=== PATIENT | female | born 1990 | race Caucasian/White ===

== ENCOUNTER 2020-04-06 14:27 | Outpatient (CLI) | payer OTHER, SELFPAY ==
--- NOTE | 2020-04-06 19:22 | PC.NURSE ---
1427 pt arrived in unit for PIH evaluation. after this RN escorted pt to room, at 1500, pt came to desk and states she has to go get her niece and has to leave, but will come back.pt left phone number.
--- NOTE | 2020-04-06 19:25 | PCDIET ---
1650 this RN attempted to call pt on the number she left. no answer and unable to leave message. [address] Martini and made aware of pt non return. 1730 pt called in unit and states she is still waiting for her ride but will coming back. 192 this RN attempted to call pt again, no answer and unable to leave message.
== END 2020-04-06 19:36 | disposition other institution (70) ==
LOC: ANHOBOP 14:36 → ANHOBPP 14:37
PROVIDERS: Visit Provider Obstetrics & Gynecology
DX: O13.9 Gestational [pregnancy-induced] hypertension without significant proteinuria, unspecified trimester (principal); Z3A.00 Weeks of gestation of pregnancy not specified
CPT/HCPCS: 99199

== ENCOUNTER 2021-07-19 15:33 | Emergency (ER) | payer OTHER, SELFPAY ==
--- NOTE | ~2021-07-19 | CT_ITS ---
EXAMINATION: CTA chest PE abdomen pel DATE: 07/19/2021 22:38 CDT INDICATION: Chest and abdomen pain. Low-grade fever. TECHNIQUE: Computed tomographic angiography (CTA) of the chest, abdomen, and pelvis was performed wit hout and with 100 mL Omnipaque-350 intravenous contrast. The dose-length product was 2452.96 mGy-cm. Maximum intensity projection 3D-reconstructions of the aorta and other arteries were constructed by joanna murcia technologist on a separate workstation. Automated exposure control and iterative reconstruction technique were employed. COMPARISON: None. FINDINGS: CHEST CTA: Study is technically limited for evaluation of pulmonary embolism. No large central pulmonary emboli. Heart size normal. No thoracic lymphadenopathy. No pleural or pericardial effusion. No pneumothorax. No endobronchial lesions. No focal airspace consolidation. No pulmonary nodules or masses. ABDOMEN AND PELVIS CTA: Fatty infiltration of the liver. There are gallstones. Gallbladder is distended. The spleen, pancreas , adrenal glands and kidneys are unremarkable. No evidence for aortic aneurysm or dissection. Nonobst ructive bowel gas pattern. No abnormal pelvic masses or fluid collections. No free air or free fluid. Mild thoracic spondylosis. No acute osseous abnormality. IMPRESSION: 1. Study technically limited. No large central pulmonary embolus. 2: Distended gallbladder with stones. Reviewed, dictated and finalized at location A.
--- NOTE | ~2021-07-19 | XR_ITS ---
EXAMINATION: XR chest 2V 07/19/2021 16:16 INDICATION: Chest pain. Hypertension. Diabetes. PROCEDURE: 2 view chest COMPARISON: No prior studies for comparison. FINDINGS: The lungs are clear. The cardiomediastinal silhouette is within normal limits. There are no pleural effusions. There is no pneumothorax suspected. IMPRESSION: 1: NO ACUTE CARDIOPULMONARY DISEASE. Reviewed, dictated and finalized at location A.
[2021-07-19 15:35] VITALS: BP 122/85; PULSE 90; RESP 18; TEMP 36.8; O2SAT 100
--- NOTE | 2021-07-19 15:35 | ECG_ITS ---
Measurements Intervals [place] Rate: 107 P: -3 VA: 139 QRS: 45 QRSD: 82 T: 257 QT: 296 QTc: 395 Interpretive Statements SINUS TACHYCARDIA ST-T WAVE ABNORMALITY IN ANTEROLAT/INF LEADS- CONSIDER ISCHEMIA BASELINE ARTIFACT- I, II, III, AVR, AVL, AVF, V1-V6 ABNORMAL ECG Electronically Signed On 07-19-2021 15:49:19 CDT by Mohan Grewal D.O.
[2021-07-19 16:45] LABS: Basophils Absolute Auto 0.1 K/mm3 (0.0-0.1); Basophils Percent Auto 0.8 % (0.2-1.2); Eosinophils Percent Auto 0.2 % (0-4.4); Hematocrit 52.1 % (37.0-47.0); Hemoglobin 17.4 g/dL (12.0-15.0); Immature Granulocyte Absolute 0.05 K/mm3 (0.00-0.031); Immature Granulocyte Percent A 0.4 % (0-0.5); Lymphocytes Absolute Auto 3.57 K/mm3 (0.9-3.2); Lymphocytes Percent Auto 26.7 % (18.3-44.2); Mean Corpuscular HGB Conc 33.4 g/dl (32-36); Mean Corpuscular Hemoglobin 27.8 pg (26-34); Mean Corpuscular Volume 83.1 fl (80-100); Mean Platelet Volume 11.1 fl (7.4-10.4); Monocytes Absolute Auto 0.8 K/mm3 (0.1-0.6); Monocytes Percent Auto 6.1 % (2.6-8.5); Neutrophils Absolute Auto 8.8 K/mm3 (1.3-6.7); Neutrophils Percent Auto 65.8 % (45.5-73.1); Platelet Count Result 287 k/mm3 (150-375); Red Blood Count 6.27 M/mm3 (4.2-5.4); White Blood Count 13.4 K/mm3 (4.5-10.0)
[2021-07-19 16:58] LABS: Anion Gap 14 mmol/L (8-16); Blood Urea Nitrogen 18 mg/dL (7-17); Calcium 10.1 mg/dL (8.4-10.2); Carbon Dioxide 25 mmol/L (22-30); Chloride 94 mmol/L (98-107); Estimated CRCL calculation 177 ml/min; Estimated Glomerular Filt Rate > 60; Glucose 260 mg/dL (65-110); Potassium 3.1 mmol/L (3.4-5.0); Sodium 133 mmol/L (137-145)
[2021-07-19 17:06] LABS: Prothrombin Time 12.8 Seconds (11.1-14.7)
[2021-07-19 17:07] LABS: Partial Thromboplastin Time 23.9 SECONDS (22.3-36.8)
[2021-07-19 17:09] LABS: Troponin I < 0.012 ng/mL (0.000-0.034)
--- NOTE | 2021-07-19 17:53 | PC.NURSE ---
Pt walked out to her car
--- NOTE | 2021-07-19 18:23 | PC.NURSE ---
Pt back from going out to car
[2021-07-19 18:35] VITALS: BP 129/89; PULSE 118; RESP 18; O2SAT 98
[2021-07-19 19:57] LABS: Alanine Aminotransferase 48 U/L (4-35); Alkaline Phosphatase 110 U/L (38-126); Aspartate Amino Transferase 66 U/L (14-36); Bilirubin,Total 0.8 mg/dL (0.2-1.3); Lipase 60 U/L (23-300)
--- NOTE | 2021-07-19 20:06 | ED.GENADULT ---
HPI - General Adult General Chief complaint: Chest Pain Stated complaint: chest pain, vomiting Time Seen by Provider: 07/19/21 19:02 History of Present Illness HPI narrative: Patient is a 31-year-old female who presents ER with reports of epigastric pain. Reports she is concerned about her gallbladder pancreas. Reports for the last 4 to 5 days she has had pain that radiates into her right back. Associate with nausea and vomiting as well as diarrhea. The diarrhea seems oily. She reports this happens to her about twice a month. She denies fevers or chills or sweats. She is unsure if this occurs when she is stressed. She does report the recent loss of a family member. She denies central chest pain or chest pressure. No racing of heart. She reports 2 days ago she got up off her couch and was walking around when she got lightheaded and passed out. This was after having episodes of diarrhea and vomiting. Related Data Home Medications Medication Instructions Recorded Confirmed amlodipine 07/19/21 atorvastatin 07/19/21 liraglutide [Victoza 3-Baldo] mg SUBCUT 07/19/21 lisinopril-hydrochlorothiazide tablet 07/19/21 metformin mg 07/19/21 07/19/21 sertraline mg 07/19/21 Allergies Allergy/AdvReac Type Severity Reaction Status Date / Time No Known Allergies Allergy Mild Verified 07/19/21 22:22 Review of Systems Review of Systems: All systems reviewed & are unremarkable except as noted in HPI and below Constitutional: Constitutional: Denies chills, Reports fatigue and Denies fever(s) ENT: Denies nasal congestion and Denies sore throat Cardiovascular: Cardiovascular: Denies chest pain, Denies rapid heart rate and Denies radiating jaw, neck or arm pain Respiratory: Respiratory: Denies cough, Denies dyspnea and Denies wheezing Gastrointestinal: Gastrointestinal: Reports abdominal pain, Denies bloating, Denies constipation, Reports diarrhea, Reports nausea and Reports vomiting Genitourinary: Genitourinary: Denies nocturia, Denies dysuria, Denies flank pain and Denies urinary incontinence Musculoskeletal: Musculoskeletal: Denies myalgias and Denies muscle cramps Neurologic: Reports syncope, Denies focal weakness and Denies numbness PMF Past Medical History Medical History (Updated 07/20/21 @ 00:13 by Endy Rushing MD) Diabetes Surgical History Surgical History (Updated 07/19/21 @ 22:03 by Endy Rushing MD) History of section Social History Social History (Updated 07/19/21 @ 22:03 by Endy Rushing MD) Smoking status: Never smoker Exam Narrative: GENERAL: Well-appearing, obese, and in no acute distress. HEAD: Normocephalic, atraumatic. ENT: Mucous membranes moist. CHEST: Clear to auscultation. No respiratory distress. HEART: Tachycardic and regular. Normal peripheral pulses. ABDOMEN: Soft, nontender, nondistended, normal active bowel sounds. EXTREMITIES: Normal range of motion. No edema. SKIN: Warm, dry, no rash. NEURO: Alert and oriented x3. PSYCH: Normal mood and affect. Course Course Emergency Course: Patient resting comfortably. Informed results. White count slightly elevated with distended gallbladder gallstones. Discussed with general surgery. Discharge home with antibiotics and pain control. Educated on low-fat diet. Will need cholecystectomy in the future. Patient's troponins negative x2. No large PE, symptoms felt to be related to gallstones so will not reimage for smaller PE. Vital Signs Vital signs: Vital Signs Temperature 98.3 F 07/19/21 15:35 Pulse Rate 90 07/19/21 15:35 Respiratory Rate 18 07/19/21 15:35 Blood Pressure 122/85 07/19/21 15:35 Pulse Oximetry 100 07/19/21 15:35 Temperature 98.3 F 07/19/21 15:35 Pulse Rate 99 07/20/21 00:27 Respiratory Rate 16 07/20/21 00:27 Blood Pressure 122/76 07/20/21 00:27 Pulse Oximetry 99 07/20/21 00:27 Medical Decision Making Vital Signs Vital Signs: Vital Sign
[2021-07-19] MEDS: SODIUM CHLORIDE 0.9% IV 1,000 ML 999 ML (20:11)
[2021-07-19 20:40] VITALS: BP 120/88; PULSE 105; RESP 16; O2SAT 99
[2021-07-19 20:41] LABS: Troponin I < 0.012 ng/mL (0.000-0.034)
[2021-07-19 22:12] VITALS: BP 126/78; PULSE 100; RESP 16; O2SAT 99
[2021-07-19] MEDS: SODIUM CHLORIDE 0.9% IV 1,000 ML 999 ML IV CONT (22:16)
[2021-07-20 00:27] VITALS: BP 122/76; PULSE 99; RESP 16; O2SAT 99
== END 2021-07-20 00:28 | disposition home or self-care (01) ==
PROVIDERS: Emergency Medicine; Emergency Provider Emergency Medicine; PCP Physician Assistant
DX: K80.80 Other cholelithiasis without obstruction (principal); E11.9 Type 2 diabetes mellitus without complications; Z79.84 Long term (current) use of oral hypoglycemic drugs; R00.0 Tachycardia, unspecified; R94.31 Abnormal electrocardiogram [ECG] [EKG]
CPT/HCPCS: 36415; 71046; 71275; 74177; 80048; 80076; 83690; 84484; 85025; 85610; 85730; 93005; 96360; 96361; 99284; J7030; Q9967

== ENCOUNTER → 2021-08-24 00:18 | Outpatient (CLI) | payer OTHER, SELFPAY ==
[2021-08-24 18:55] LABS: SARS-CoV-2 RNA PCR Negative
== END ==
PROVIDERS: PCP Physician Assistant; Visit Provider Surgery
DX: Z01.812 Encounter for preprocedural laboratory examination (principal); Z20.822 Contact with and (suspected) exposure to COVID-19
CPT/HCPCS: C9803; U0003; U0005

== ENCOUNTER 2021-08-24 08:54 | Outpatient (CLI) | payer OTHER, SELFPAY ==
[2021-08-24 10:07] LABS: Hematocrit 44.9 % (37.0-47.0); Hemoglobin 14.6 g/dL (12.0-15.0); Mean Corpuscular HGB Conc 32.5 g/dl (32-36); Mean Corpuscular Hemoglobin 27.9 pg (26-34); Mean Corpuscular Volume 85.9 fl (80-100); Mean Platelet Volume 11.8 fl (7.4-10.4); Platelet Count Result 205 k/mm3 (150-375); Red Blood Count 5.23 M/mm3 (4.2-5.4); Red Cell Distribution Width 16.3 % (11.5-14.5); White Blood Count 12.1 K/mm3 (4.5-10.0)
[2021-08-24 10:09] LABS: Alanine Aminotransferase 20 U/L (4-35); Alkaline Phosphatase 97 U/L (38-126); Amylase 39 U/L (30-110); Aspartate Amino Transferase 21 U/L (14-36); Bilirubin,Total 0.4 mg/dL (0.2-1.3); Lipase 46 U/L (23-300)
== END 2021-08-24 08:55 | disposition home or self-care (01) ==
LOC: ANHLAB 08:59
PROVIDERS: PCP Physician Assistant; Visit Provider Surgery
DX: Z01.818 Encounter for other preprocedural examination (principal); K80.20 Calculus of gallbladder without cholecystitis without obstruction
CPT/HCPCS: 36415; 80076; 82150; 83690; 85027; 86850; 86900; 86901; C9803; U0003; U0005

== ENCOUNTER 2021-08-27 01:32 | Day surgery (SDC) | payer OTHER, SELFPAY ==
[2021-08-21 14:07] VITALS: BMI 44.9
--- NOTE | 2021-08-21 14:26 | PC.NURSE ---
PT TO ARRIVE 08/27/2021 AT 1200 FOR 1400 SURGERY.
--- NOTE | 2021-08-21 14:28 | PC.NURSE ---
Report to the Outpatient Waiting Room, entrance under the green pavilion located off [facility], at time ___1200____ on date __08/27/2021 . OR Time: __1400 . - You and your visitor will be asked a series of questions to screen for COVID 19 for your protection. - A mask is required within the hospital. - Only one visitor is allowed at this time. Patient visitors will be guided where to wait when not with patient. Preoperative COVID Testing Requirements: No COVID Test needed if: (proof is required; if not received patient will have Rapid Test prior to entry) - Patient has received COVID Vaccine at least 14 days prior to procedure date or - Patient has positive COVID test result within last 90 days of surgery date. COVID Test needed if above criteria is not met If not COVID vaccinated a COVID test must be conducted within 72 hours of surgery and patient is asked to isolate self from time of testing until procedure. You will go to the [facility] for your COVID testing. The [facility] is located at the corner of [address] from [facility]. COVID TESTING SCHEDULE FOR 08/24/2021 @ 0835. You will only be called if COVID results are positive and your surgeon may reschedule your elective surgery date. Patients may have clear liquids (water, carbonated beverages, clear teas, apple juice) until 3 hours prior to surgery with a maximum of 20 ounces. - No food from midnight until time of surgery - Infants may have breast milk until 4 hours before surgery, formula 6 hours prior to surgery. - Children will be allowed to drink immediately following surgery. If applicable, please bring a bottle or sippy cup to assist with drinking. Juice, water, soda, and popsicles are readily available. For infants on formula, please bring formula the day of surgery. Pacifiers are allowed. Take the following medications with a SIP of water the morning of surgery: TAKE ALL MEDICATIONS USUAL EVENING BEFORE SURGERY. TAKE NO MEDICATIONS DAY OF SURGERY Medications to discontinue per physician Date to take last dose Please no make-up, nail palestinian, hairspray, perfume, deodorant, or body powder the day of surgery. No jewelry (including any body piercings) or valuables the day of surgery, leave them at home. Please take a shower or bath the night before, or the morning of, surgery with an antibacterial soap. Wear comfortable, loose fitting clothing. Children are encouraged to wear pajamas. - Jewelry must be removed prior to entering the operating room. Rings and piercings that are not removed may be cut off. - The hospital will not accept responsibility for valuables. - Please leave all valuables, including medications, at home the day of surgery. If you are going home after surgery, a licensed belly dump driver must drive you home. - NO public transportation without another adult. - We recommend that an adult stay with you for 24 hours following discharge. - We also recommend that you do not drive, make important decision, drink alcoholic beverages, or take any drugs that were not prescribed by your health care provider for at least 24 hours after your discharge time. For Pediatric surgeries, we recommend two adults accompany the child home (only one inside the building at this time). Follow any additional instructions given to you from your surgeon. Telephone instructions given to patient and asked if any additional questions and then verbalized understanding. Patient advised to call surgeon office or pre surgery nurse liaison [phone] if any additional questions.
[2021-08-27] VITALS (19 sets, daily range): BP systolic 98–188; BP diastolic 45–74; PULSE 59–82; RESP 14–22; TEMP 36.2–37.1; O2SAT 86–100; BMI 42.4
[2021-08-27] MEDS: ACETAMINOPHEN 500 MG TABLET 1000 MG PO (11:08)
[2021-08-27] MEDS: LACTATED RINGERS 1,000 ML 30 ML IV CONT ×2 (11:08→14:42)
[2021-08-27] MEDS: KETOROLAC 15 MG/ML VIAL (*BKC) IV PUSH (11:08)
[2021-08-27 11:11] LABS: Glucose Point of Care 141 mg/dl (65-105)
--- NOTE | 2021-08-27 11:48 | WPDANESEPPF ---
Anes - Initial Pre Proc Eval Procedure: Operation Date: 08/27/21 12:00 Proposed Procedures p Laparoscopic Cholecystectomy Possible Open - Vasyl Bronson DO Date/Time: 08/27/21 11:48 Surgeon: Vasyl Bronson DO Pre Op Diagnosis: symptomatic cholelithiasis Patient Data Age: 31 Gender: F Height: 1.74 m Weight: 128.4 kg Last Vital Signs Temp 36.2 C L 08/27/21 10:40 Pulse 82 08/27/21 10:40 Resp 20 08/27/21 10:40 BP 188/66 H 08/27/21 10:40 Pulse Ox 98 08/27/21 10:40 Allergies Allergy/AdvReac Type Severity Reaction Status Date / Time No Known Allergies Allergy Mild Verified 08/27/21 10:49 Home Medications Medication Instructions Recorded Confirmed Type amlodipine 10 mg PO HS 07/19/21 08/27/21 History atorvastatin 20 mg PO HS 07/19/21 08/27/21 History liraglutide [Victoza 3-Baldo] 1.8 mg SUBCUT DAILY 07/19/21 08/27/21 History lisinopril-hydrochlorothiazide 1 tablet PO HS 07/19/21 08/27/21 History metformin 1,000 mg PO BID 07/19/21 08/27/21 History sertraline 100 mg PO HS 07/19/21 08/27/21 History Laboratory Tests 08/27/21 11:06 POC Capillary Glucose 141 mg/dl H mg/dl (65-105) Patient hx anesthesia problems: none Family hx anesthesia problems: none Results Review: All pre-operative results and documents have been reviewed as part of the pre-operative evaluation. [facility] Past Medical History Medical History Depression Diabetes Hyperlipidemia Hypertension Surgical History Surgical History History of section Family History Family History Father Other specified failure in dosage Over dosage from street drug use Mother Other specified failure in dosage Over dosage from street drug use Other Cerebrovascular accident Heart disease Hypertension Social History Social History Smoking packs per day: 1.0 Smoking cigarettes per day: 20.0 Years smoked: 15 Smoking pack-years: 15.00 Smoking status: Never smoker Tobacco type: cigarettes Second hand tobacco smoke exposure: Yes Alcohol intake: former Substance use: former Substance use type: methamphetamine Other substance usage details: CURRENTLY MARIJUANA-DAILY Last use: 10/27/2019 Living arrangements: with family Spiritual care concerns: No Anes - Eval Final PreProcedure Day of Procedure 08/27/21 11:48 Patient weight: morbidly obese Heart: regular rate and rhythm Lungs: decreased breath sounds Airway: Mallampati scale class II Neurological: alert and oriented Last oral intake: >/= 8 hours ASA classification: III Emergent: no Anesthetic plan: proceed Anesthesia type and monitoring: general ETT and standard monitoring Results Review: All pre-operative results and documents have been reviewed as part of the pre-operative evaluation. Informed Consent: The patient's anesthetic plan and its attendant risks and benefits were discussed with the patient/family/POA. Questions were solicited and answers provided to the satisfaction of the patient/family/POA.
--- NOTE | 2021-08-27 11:53 | PM.IMHP ---
H&P: HPI History of Present Illness Date/Time: 08/27/21 11:53 Chief Complaint: Upper abdominal pain Narrative: This is a 31-year-old woman who presented with cholelithiasis. She now presents for laparoscopic cholecystectomy. Denies any changes since last seen in the office. Review of Systems Review of Systems: All systems reviewed & are unremarkable except as noted in HPI and below Constitutional: Constitutional: Denies chills, Denies fever(s), Denies headache(s) and Denies weight loss Eyes: Eyes: Denies change in vision ENT: Denies dizziness, Denies headache(s), Denies neck mass and Denies throat swelling Cardiovascular: Cardiovascular: Denies chest pain, Denies lightheadedness and Denies dyspnea Respiratory: Respiratory: Denies cough, Denies dyspnea and Denies wheezing Gastrointestinal: Gastrointestinal: Denies abdominal pain, Denies change in bowel habits, Denies nausea and Denies vomiting Genitourinary: Genitourinary: Denies hematuria and Denies dysuria Musculoskeletal: Musculoskeletal: Reports as per HPI Integumentary/Breasts: Skin/Breast: Reports as per HPI Neurologic: Denies dizziness and Denies headache(s) Allergic/Immunologic: Allergic/Immunologic: Denies throat swelling and Denies wheezing PMFSH Past Medical History Medical History Depression Diabetes Hyperlipidemia Hypertension Surgical History Surgical History History of section Family History Family History Father Other specified failure in dosage Over dosage from street drug use Mother Other specified failure in dosage Over dosage from street drug use Other Cerebrovascular accident Heart disease Hypertension Social History Social History Smoking packs per day: 1.0 Smoking cigarettes per day: 20.0 Years smoked: 15 Smoking pack-years: 15.00 Smoking status: Never smoker Tobacco type: cigarettes Second hand tobacco smoke exposure: Yes Alcohol intake: former Substance use: former Substance use type: methamphetamine Other substance usage details: CURRENTLY MARIJUANA-DAILY Last use: 10/27/2019 Living arrangements: with family Spiritual care concerns: No Meds Home Medications and Allergies Home Medications Medication Instructions Recorded Confirmed Type amlodipine 10 mg PO HS 07/19/21 08/27/21 History atorvastatin 20 mg PO HS 07/19/21 08/27/21 History liraglutide [Victoza 3-Baldo] 1.8 mg SUBCUT DAILY 07/19/21 08/27/21 History lisinopril-hydrochlorothiazide 1 tablet PO HS 07/19/21 08/27/21 History metformin 1,000 mg PO BID 07/19/21 08/27/21 History sertraline 100 mg PO HS 07/19/21 08/27/21 History Allergies Allergy/AdvReac Type Severity Reaction Status Date / Time No Known Allergies Allergy Mild Verified 08/27/21 10:49 Vital Signs Vital Signs - 24 hr 08/27/21 10:40 Temperature 36.2 C L Pulse Rate 82 Respiratory Rate 20 Blood Pressure 188/66 H Pulse Oximetry 98 Exam Const: General: no acute distress and alert Orientation/consciousness: patient oriented x3 HENMT: Head: normocephalic and atraumatic Ears: hearing grossly normal bilaterally General nose exam: Normal nares present Mouth: Yes Normal oral and palatal mucosa present Eyes: Periorbital: periorbital findings normal Sclera: sclerae normal EOM: EOMs intact bilaterally Neck: Neck: normal visual inspection, no lymphadenopathy and trachea midline Chest: Chest palpation & inspection: normal inspection of the chest Resp: Effort & Inspection: normal respiratory effort Auscultation: clear to auscultation bilaterally Cardio: Jugular venous distension: no JVD Rate: regular rate Rhythm: regular rhythm Heart sounds: S1 normal heart sound present and S2
--- NOTE | 2021-08-27 11:54 | WPDHPUPDATE1 ---
History and Physical Update Update Date/Time: 08/27/21 11:54 History and Physical has been reviewed, including an updated exam of the patient. There are NO changes in the patient's condition. Risks, benefits, and alternatives have been discussed and questions answered. Patient agrees to proceed with procedure.
[2021-08-27] MEDS: ceFAZolin 3 GM/D5W 100 ML 100 ML IVPB (12:20)
[2021-08-27] MEDS: BUPIVACAINE HCL 0.5% PF 30 ML VIAL INFILTRATE (12:52)
[2021-08-27] MEDS: fentaNYL CITRATE INJ (*CRX) 100 MCG/2 ML VIAL 25 MCG IV PUSH ×8 (14:27→16:39)
[2021-08-27] MEDS: ONDANSETRON INJ 4 MG/2 ML VIAL IV PUSH (14:46)
[2021-08-27] MEDS: SCOPOLAMINE 1.5 MG PATCH TRANSDERM (14:50)
--- NOTE | 2021-08-27 14:59 | W.PM.PROC2 ---
Procedure Note - Detailed Date of Procedure 08/27/21 Pre-op Diagnosis symptomatic cholelithiasis Post-op Diagnosis same Procedure Performed Laparoscopic Cholecystectomy Surgeon Vasyl Bronson, DO Anesthesia general and local (0.5% bupivacaine) Indications This is a 31-year-old woman who presented with upper abdominal pain over the past year. She was having intermittent episodes of abdominal pain with nausea and vomiting. She recently went to [facility] on 07/19 and was found to have a slightly elevated white blood count and elevated liver enzymes.CT angiogram showed evidence of a distended gallbladder with gallstones but no evidence of pulmonary embolus. She then was referred to my office as an outpatient. Discussions were made with the patient about treatment options and decision was made to proceed with laparoscopic cholecystectomy, possible open. Findings Laparoscopic cholecystectomy was performed. This was a very technically difficult procedure due to a very dilated gallbladder with many large gallstones and pericholecystic adhesions. One of the gallstones measured at least 2-3 cm in size. The patient's BMI also made procedure technically difficult. The total length of the procedure was 92 minutes which is about twice as long as a typical laparoscopic cholecystectomy, and blood loss was 150 mL which is about 10 times as much as a typical laparoscopic cholecystectomy. I attempted aspirating the gallbladder to decompress it, but due to it being filled with many stones and having very thick almost purulent-appearing bile, I was unable to aspirate anything out of it. Once I was able to identify the cystic duct, it appeared to be normal in size. As I was dissecting the gallbladder off of the liver bed, the posterior wall the gallbladder was very difficult to identify and there was significant bleeding from the liver bed. The gallbladder wall tore as I was taking it off of the liver bed and several of the gallstones spilled out. I was able to retrieve all of the gallstones once the gallbladder was removed. Hemostasis was achieved with spatula electrocautery and the gallbladder fossa was irrigated with about 1 L of sterile saline. I then chose to place a 19 round Chivo drain to monitor for any further signs of infection or bleeding. Decision was made to admit the patient for observation due to the complexity and difficulty of the procedure. Description of Procedure Procedure as well as risks, benefits, and alternatives were discussed with patient. Written consent was obtained and placed in chart prior to procedure. The patient was brought back to surgical suite. Patient was placed in supine position on operating table. Time-out was done to confirm patient and procedure. Patient was then intubated by the anesthesia department. Abdomen was prepped and draped in sterile fashion using chlorhexidine prep. 0.5% bupivacaine with epinephrine was infiltrated at each site of incision. A 5 millimeter incision was made near the umbilicus, and a 5 millimeter Optiview trocar was advanced through the abdominal layers under direct visualization. Once inside the abdominal cavity, carbon dioxide was insufflated to create a pneumoperitoneum. The camera was inserted and the abdomen was inspected. No immediate abnormalities were identified. The patient was placed in reverse Trendelenburg position and rotated slightly to the left. An 11 millimeter incision was made in the subxiphoid region, and an 11 millimeter trocar was inserted under direct visualization. Two 5 millimeter incisions were made in the right upper quadrant, and two 5 millimeter trocars were inserted under direct visualization. The gallbladder was identified and grasped at the fundus and retracted superiorly. It was then grasped at the infundibulum retracted laterally. Careful dissection around the neck of the gallbladder was performed using blunt dissection with a [place] grasper
[2021-08-27 15:03] LABS: Glucose Point of Care 207 mg/dl (65-105)
--- NOTE | 2021-08-27 17:05 | ADMGEN ---
This patient, Fara Lilly, was admitted to 2 Medical Room 260-01. Patient/family oriented to hospital policies and general routines including ID bracelet, bed and alarms, visiting hours, pain management, procedures, bathroom and other care routines, personal items, smoking policy, room service/diet, and visiting hours. Information on how to activate the Rapid Response Team has been discussed. Patient/Family are encouraged to report perceived risks to care and to ask questions if they do not understand what they are told or what they should do.
[2021-08-27] MEDS: LACTATED RINGERS 1,000 ML 100 ML IV CONT (17:12)
[2021-08-27] MEDS: metFORMIN HCL 500 MG TABLET 1000 MG PO (17:28)
[2021-08-27 17:54] LABS: Mean Platelet Volume 11.6 fl (7.4-10.4); Platelet Count Result 188 k/mm3 (150-375)
[2021-08-27] MEDS: NICOTINE (*PBKC) 21 MG PATCH 1 PATCH TRANSDERM (18:11)
[2021-08-27 18:22] LABS: Estimated CRCL calculation 198 ml/min; Estimated Glomerular Filt Rate > 60
[2021-08-27] MEDS: HYDROcodone/acetaminophen (*CRX) 10-325 MG TABLET 1 TAB PO (18:24)
[2021-08-27] MEDS: amLODIPine BESYLATE 5 MG TABLET 10 MG PO (20:55)
[2021-08-27] MEDS: lisinopriL 20 MG TABLET PO (20:55)
[2021-08-27] MEDS: SERTRALINE HCL 50 MG TABLET 100 MG PO (20:55)
[2021-08-27] MEDS: ATORVASTATIN 20 MG TABLET PO (20:55)
[2021-08-27] MEDS: hydroCHLOROthiazide 25 MG TABLET PO (20:55)
[2021-08-27 21:20] LABS: Glucose Point of Care 228 mg/dl (65-105)
[2021-08-28 00:07] VITALS: BP 113/51; PULSE 86; RESP 20; TEMP 36.8; O2SAT 95
[2021-08-28] MEDS: HYDROcodone/acetaminophen (*CRX) 10-325 MG TABLET 1 TAB PO ×2 (00:20→06:09)
[2021-08-28 03:57] VITALS: BP 140/65; PULSE 57; RESP 20; TEMP 36.6; O2SAT 98
[2021-08-28 06:21] LABS: Hematocrit 40.7 % (37.0-47.0); Hemoglobin 13.3 g/dL (12.0-15.0); Mean Corpuscular HGB Conc 32.7 g/dl (32-36); Mean Corpuscular Hemoglobin 27.4 pg (26-34); Mean Corpuscular Volume 83.9 fl (80-100); Mean Platelet Volume 11.5 fl (7.4-10.4); Platelet Count Result 212 k/mm3 (150-375); Red Blood Count 4.85 M/mm3 (4.2-5.4); Red Cell Distribution Width 15.9 % (11.5-14.5)
[2021-08-28 06:25] LABS: Alanine Aminotransferase 66 U/L (4-35); Albumin Level 3.9 g/dL (3.5-5.1); Alkaline Phosphatase 86 U/L (38-126); Anion Gap 9 mmol/L (8-16); Aspartate Amino Transferase 73 U/L (14-36); Bilirubin,Total 0.4 mg/dL (0.2-1.3); Blood Urea Nitrogen 11 mg/dL (7-17); Carbon Dioxide 25 mmol/L (22-30); Chloride 99 mmol/L (98-107); Estimated CRCL calculation 198 ml/min; Estimated Glomerular Filt Rate > 60; Glucose 213 mg/dL (65-110); Sodium 133 mmol/L (137-145)
[2021-08-28 07:25] VITALS: BP 127/53; PULSE 54; RESP 18; TEMP 36.3; O2SAT 97
[2021-08-28 07:47] LABS: Glucose Point of Care 190 mg/dl (65-105)
[2021-08-28] MEDS: NICOTINE (*PBKC) 21 MG PATCH 1 PATCH TRANSDERM (08:27)
[2021-08-28] MEDS: metFORMIN HCL 500 MG TABLET 1000 MG PO (08:27)
[2021-08-28] MEDS: ENOXAPARIN 40 MG/0.4 ML SYRINGE SUB-Q (08:27)
--- NOTE | 2021-08-28 09:00 | WPDANESPN ---
Anes - Prog Note Post-Op Date/Time: 08/28/21 09:00 Cardiovascular status: normal Respiratory status: normal Airway patency: baseline Mental status: baseline Post-Op hydration status: normal Vital Signs: Last Vital Signs Temp 36.3 C L 08/28/21 07:25 Pulse 54 L 08/28/21 07:25 Resp 18 08/28/21 07:25 BP 127/53 L 08/28/21 07:25 Pulse Ox 97 08/28/21 07:25 Pain Score (VAS): 3 I/O: Intake & Output 08/27/21 08/28/21 08/28/21 23:59 07:59 15:59 Intake Total 750 1290 120 Output Total 70 10 Balance 680 1280 120 Laboratory Tests 08/28/21 05:26 08/28/21 05:26 08/27/21 08/27/21 08/27/21 11:06 15:00 17:47 WBC RBC Hgb Hct MCV MCH MCHC RDW Plt Count 188 MPV 11.6 H Sodium Potassium Chloride Carbon Dioxide Anion Gap BUN Creatinine Estim Creat Clear Calc Estimated GFR Glucose POC Capillary Glucose 141 H 207 H Calcium Total Bilirubin AST ALT Alkaline Phosphatase Total Protein Albumin 08/27/21 08/27/21 08/28/21 17:47 20:52 05:26 WBC 12.0 H RBC 4.85 Hgb 13.3 Hct 40.7 MCV 83.9 MCH 27.4 MCHC 32.7 RDW 15.9 H Plt Count 212 MPV 11.5 H Sodium Potassium Chloride Carbon Dioxide Anion Gap BUN Creatinine 0.50 L Estim Creat Clear Calc 198 Estimated GFR > 60 Glucose POC Capillary Glucose 228 H Calcium Total Bilirubin AST ALT Alkaline Phosphatase Total Protein Albumin 08/28/21 08/28/21 05:26 07:45 WBC RBC Hgb Hct MCV MCH MCHC RDW Plt Count MPV Sodium 133 L Potassium 4.0 Chloride 99 Carbon Dioxide 25 Anion Gap 9 BUN 11 D Creatinine 0.50 L Estim Creat Clear Calc 198 Estimated GFR > 60 Glucose 213 H POC Capillary Glucose 190 H Calcium 9.0 Total Bilirubin 0.4 AST 73 H ALT 66 H Alkaline Phosphatase 86 Total Protein 7.0 Albumin 3.9 Post-procedural complaints: none Patient Feedback: Patient satisfied with anesthetic care.
[2021-08-28 10:42] VITALS: BP 150/80; PULSE 67; RESP 18; TEMP 36.3; O2SAT 98
== END 2021-08-28 10:48 | disposition home or self-care (01) ==
LOC: ANHSURGERY 12:20 → ANH2MED 17:08
PROVIDERS: PCP Physician Assistant; Visit Provider Surgery
PROC: 0FT44ZZ Resection of Gallbladder, Percutaneous Endoscopic Approach (ICD-10-PCS; CPT 47562; principal; 2021-08-27 12:00)
DX: K80.10 Calculus of gallbladder with chronic cholecystitis without obstruction (principal); I10 Essential (primary) hypertension; E78.5 Hyperlipidemia, unspecified; E11.9 Type 2 diabetes mellitus without complications; F32.9 Major depressive disorder, single episode, unspecified; Z79.84 Long term (current) use of oral hypoglycemic drugs; Z79.899 Other long term (current) drug therapy; Z87.891 Personal history of nicotine dependence; F12.90 Cannabis use, unspecified, uncomplicated; E66.01 Morbid (severe) obesity due to excess calories; Z68.41 Body mass index [BMI] 40.0-44.9, adult
CPT/HCPCS: 47562; 36415; 80053; 82565; 82948; 85027; 85049; 88304; A9270; J0330; J0690; J1100; J1650; J1885; J2250; J2405; J2543; J2704; J2710; J3010; J7030; J7120

== ENCOUNTER 2021-12-22 06:44 | Emergency (ER) | payer OTHER, SELFPAY ==
[2021-12-22] VITALS (11 sets, daily range): BP systolic 156–179; BP diastolic 88–97; PULSE 3–107; RESP 13–29; TEMP 36.1; O2SAT 95–99
--- NOTE | 2021-12-22 07:15 | PC.NURSE ---
Patient report received from STEPHANIE Burgess and care assumed.
--- NOTE | 2021-12-22 07:17 | ED.NAVMDI ---
HPI - Nausea/Vomiting/Diarrhea General Chief complaint: Nausea/Vomiting/Diarrhea Stated complaint: MEDICATION REACTION Time Seen by Provider: 12/22/21 06:58 Source: patient Mode of arrival: ambulatory Limitations: no limitations History of Present Illness HPI Narrative: 31-year-old female presents emergency room secondary to vomiting diarrhea. Is been going on for approximately 24 hours. Patient's been on antidepressants long-term and then was taking some [id number] cough and cold medication. She called poison control and they told her she could be experiencing serotonin syndrome. She had about 7 episodes of vomiting throughout the night. Other people at home are also been ill with the upper respiratory type symptoms with no onset GI symptoms like her. Patient states she is extremely agitated and she was unable to sleep all night. She feels her heart racing. She has underlying history of depression, hypertension, and obesity. She states her latest hemoglobin A1c is come down from 10-7. She does not check her blood sugar on a regular basis. Related Data Home Medications Medication Instructions Recorded Confirmed Victoza 3-Baldo 1.8 mg SUBCUT DAILY 07/19/21 08/27/21 amlodipine 10 mg PO HS 07/19/21 08/27/21 atorvastatin 20 mg PO HS 07/19/21 08/27/21 lisinopril-hydrochlorothiazide 1 tablet PO HS 07/19/21 08/27/21 metformin 1,000 mg PO BID 07/19/21 08/27/21 sertraline 100 mg PO HS 07/19/21 08/27/21 Allergies Allergy/AdvReac Type Severity Reaction Status Date / Time No Known Allergies Allergy Mild Verified 12/22/21 07:02 Review of Systems Review of Systems: CONSTITUTIONAL: Denies fever, chills, or sweats. EYES: Denies visual changes, redness, or discharge. ENT: Denies rhinorrhea, congestion, sore throat, or otalgia. CARDIOVASCULAR: Denies chest pain, palpitations, or edema. RESPIRATORY: Denies cough or dyspnea. GASTROINTESTINAL: Patient has been experiencing nausea, vomiting, and diarrhea GENITOURINARY: Denies dysuria or hematuria. SKIN: Denies rash or itching. MUSCULOSKELETAL: Denies back pain, joint pain, or myalgia. NEUROLOGIC: Denies headache, numbness, or weakness. PSYCHIATRIC: Has underlying history of depression is currently very anxious PMFSH Past Medical History Medical History Depression Diabetes Hyperlipidemia Hypertension Surgical History Surgical History History of section Family History Family History Father Other specified failure in dosage Over dosage from street drug use Mother Other specified failure in dosage Over dosage from street drug use Other Cerebrovascular accident Heart disease Hypertension Social History Social History Smoking packs per day: 1 Smoking cigarettes per day: 20.0 Years smoked: 15 Smoking pack-years: 15.00 Smoking status: Current every day smoker Tobacco type: cigarettes Second hand tobacco smoke exposure: Yes Alcohol intake: former Substance use: former Substance use type: marijuana and methamphetamine Other substance usage details: CURRENTLY MARIJUANA-DAILY, Oct 27 2019 last used methamphetamine Last use: 08/27/21 Spiritual care concerns: No Exam Narrative: APPEARANCE: Well appearing, no pain in distress, well-nourished. Extremely anxious Head normocephalic atraumtaic. EYES: PERRLA/EOMI, conjunctivae very clear. NOSE: Normal no drainage EARS:TMS clear Ema Martins, with good light reflex. THROAT: Pharynx clear, no exudate. NECK: Supple. No adenopathy, no masses. RESPIRATORY: Airway patent, repsirations nonlabored. Clear to auscultation bilaterally, no rales, rhonchi, wheezing. CARDIOVASCULAR: Regular rate and rhythm with tachycardia but without murmurs rubs or gallops. A
[2021-12-22] MEDS: ONDANSETRON INJ 4 MG/2 ML VIAL IV PUSH (07:26)
[2021-12-22] MEDS: SODIUM CHLORIDE 0.9% IV 1,000 ML 999 ML IV CONT (07:29)
[2021-12-22] MEDS: LORazepam INJ (*CRX) 2 MG/ML VIAL 1 MG IV PUSH (07:35)
[2021-12-22 07:53] LABS: Basophils Percent Auto 0.4 % (0.2-1.2); Hematocrit 45.4 % (37.0-47.0); Hemoglobin 15.3 g/dL (12.0-15.0); Immature Granulocyte Absolute 0.02 K/mm3 (0.00-0.031); Immature Granulocyte Percent A 0.2 % (0-0.5); Lymphocytes Percent Auto 17.5 % (18.3-44.2); Mean Corpuscular HGB Conc 33.7 g/dl (32-36); Mean Corpuscular Hemoglobin 26.4 pg (26-34); Mean Corpuscular Volume 78.3 fl (80-100); Mean Platelet Volume 11.2 fl (7.4-10.4); Monocytes Absolute Auto 0.2 K/mm3 (0.1-0.6); Monocytes Percent Auto 1.9 % (2.6-8.5); Neutrophils Absolute Auto 8.2 K/mm3 (1.3-6.7); Platelet Count Result 287 k/mm3 (150-375); White Blood Count 10.3 K/mm3 (4.5-10.0)
[2021-12-22 08:01] LABS: Alanine Aminotransferase 24 U/L (4-35); Albumin Level 4.7 g/dL (3.5-5.1); Alkaline Phosphatase 140 U/L (38-126); Anion Gap 13 mmol/L (8-16); Aspartate Amino Transferase 28 U/L (14-36); Bilirubin,Total 0.7 mg/dL (0.2-1.3); Blood Urea Nitrogen 13 mg/dL (7-17); Carbon Dioxide 26 mmol/L (22-30); Chloride 95 mmol/L (98-107); Estimated CRCL calculation 247 ml/min; Estimated Glomerular Filt Rate > 60; Glucose 257 mg/dL (65-110); Potassium 3.4 mmol/L (3.4-5.0); Sodium 134 mmol/L (137-145)
[2021-12-22] MEDS: MAG HYDROX/AL HYDROX/SIMETH 30 ML UDC PO (09:07)
== END 2021-12-22 09:26 | disposition home or self-care (01) ==
PROVIDERS: Emergency Provider Emergency Medicine; PCP Physician Assistant
DX: T43.221A Poisoning by selective serotonin reuptake inhibitors, accidental (unintentional), initial encounter (principal); T50.901A Poisoning by unspecified drugs, medicaments and biological substances, accidental (unintentional), initial encounter; R11.2 Nausea with vomiting, unspecified; E11.9 Type 2 diabetes mellitus without complications; E78.5 Hyperlipidemia, unspecified; I10 Essential (primary) hypertension; F32.A Depression, unspecified; Z79.84 Long term (current) use of oral hypoglycemic drugs; F17.210 Nicotine dependence, cigarettes, uncomplicated; E66.9 Obesity, unspecified; Z68.42 Body mass index [BMI] 45.0-49.9, adult
CPT/HCPCS: 36415; 80053; 85025; 96361; 96374; 96375; 99284; A9270; J2060; J2405; J7030

== ENCOUNTER 2022-06-22 15:26 | Emergency (ER) | payer OTHER, SELFPAY ==
[2022-06-22 15:36] LABS: Glucose Point of Care 261 mg/dl (65-105)
--- NOTE | 2022-06-22 15:36 | ED.NAVMDI ---
HPI - Nausea/Vomiting/Diarrhea General Chief complaint: Nausea/Vomiting/Diarrhea Stated complaint: n/v Time Seen by Provider: 06/22/22 15:28 History of Present Illness HPI Narrative: 32-year-old female history of poorly controlled diabetes presents emergency room for evaluation of nausea vomiting and diarrhea for 4 days. Patient states that she has been experiencing right upper abdominal pain today. Reports multiple episodes of nonbloody nonbilious emesis. Also complaining of nonmelanotic diarrhea stools. Patient has not been checking her blood sugars, stating that she was never educated as to how to properly perform the test. Patient also complaining of a headache and body aches. Related Data Home Medications Medication Instructions Recorded Confirmed amlodipine 10 mg tablet 10 mg PO HS 07/19/21 08/27/21 atorvastatin 20 mg tablet 20 mg PO HS 07/19/21 08/27/21 liraglutide 0.6 mg/0.1 mL (18 mg/3 1.8 mg subcut DAILY 07/19/21 08/27/21 mL) subcutaneous pen injector ([address] 3-Baldo) lisinopril 20 1 tablet PO HS 07/19/21 08/27/21 mg-hydrochlorothiazide 25 mg tablet metformin 1,000 mg tablet 1,000 mg PO BID 07/19/21 08/27/21 sertraline 100 mg tablet 100 mg PO HS 07/19/21 08/27/21 Allergies Allergy/AdvReac Type Severity Reaction Status Date / Time No Known Allergies Allergy Mild Verified 06/22/22 15:50 Review of Systems Review of Systems: CONSTITUTIONAL: Denies fever, chills, or sweats. EYES: Denies visual changes, redness, or discharge. ENT: Denies rhinorrhea, congestion, sore throat, or otalgia. CARDIOVASCULAR: Denies chest pain, palpitations, or edema. RESPIRATORY: Denies cough or dyspnea. GASTROINTESTINAL: Reports abdominal pain, nausea, vomiting, and diarrhea. GENITOURINARY: Denies dysuria or hematuria. SKIN: Denies rash or itching. MUSCULOSKELETAL: Denies back pain, joint pain, or myalgia. NEUROLOGIC: Denies headache, numbness, dizziness, or weakness. PSYCHIATRIC: Denies anxiety or depression. [facility] Past Medical History Medical History Depression Diabetes Hyperlipidemia Hypertension Surgical History Surgical History History of section Family History Family History Father Other specified failure in dosage Over dosage from street drug use Mother Other specified failure in dosage Over dosage from street drug use Other Cerebrovascular accident Heart disease Hypertension Social History Social History Smoking packs per day: 1 Smoking cigarettes per day: 20.0 Years smoked: 15 Smoking pack-years: 15.00 Smoking status: Current every day smoker Tobacco type: cigarettes Second hand tobacco smoke exposure: Yes Alcohol intake: former Substance use: former Substance use type: marijuana and methamphetamine Other substance usage details: CURRENTLY MARIJUANA-DAILY, Oct 27 2019 last used methamphetamine Last use: 08/27/21 Spiritual care concerns: No Exam Narrative: GENERAL: Well-appearing, well-nourished, no physical limitations, and in no acute distress. HEAD: Normocephalic, atraumatic. EYES: Conjunctivae normal, PERRLA and EOMI. CHEST: Clear to auscultation. No respiratory distress. No wheezes rales or rhonchi. HEART: Regular rate and rhythm. No murmur heard. Normal peripheral pulses. ABDOMEN: Soft, right upper quadrant tenderness, nondistended, normal active bowel sounds. BACK: No CVA tenderness; EXTREMITIES: Normal range of motion. No edema. No clubbing or cyanosis SKIN: Warm, dry, no rash. No noted wounds NEURO: No focal deficits. Alert and oriented x3. MAEW. CN's II-XI intact bilaterally, normal gait PSYCH: Cooperative. Normal mood and affect. Course Vital Signs Vital signs: Vital Signs Temperatur
[2022-06-22 15:47] VITALS: BP 174/107; PULSE 90; RESP 16; TEMP 36.3; O2SAT 98
[2022-06-22] MEDS: SODIUM CHLORIDE 0.9% IV 1,000 ML 999 ML IV CONT ×2 (15:51→16:45)
[2022-06-22] MEDS: ONDANSETRON INJ 4 MG/2 ML VIAL IV PUSH (15:51)
[2022-06-22 15:52] LABS: Basophils Absolute Auto 0.1 K/mm3 (0.0-0.1); Basophils Percent Auto 0.5 % (0.2-1.2); Eosinophils Percent Auto 0.2 % (0-4.4); Hemoglobin 15.8 g/dL (12.0-15.0); Immature Granulocyte Absolute 0.06 K/mm3 (0.00-0.031); Immature Granulocyte Percent A 0.5 % (0-0.5); Lymphocytes Absolute Auto 1.98 K/mm3 (0.9-3.2); Lymphocytes Percent Auto 15.3 % (18.3-44.2); Mean Corpuscular HGB Conc 32.9 g/dl (32-36); Mean Corpuscular Hemoglobin 26.3 pg (26-34); Mean Corpuscular Volume 79.9 fl (80-100); Mean Platelet Volume 10.2 fl (7.4-10.4); Monocytes Absolute Auto 0.5 K/mm3 (0.1-0.6); Monocytes Percent Auto 3.8 % (2.6-8.5); Neutrophils Absolute Auto 10.3 K/mm3 (1.3-6.7); Neutrophils Percent Auto 79.7 % (45.5-73.1); Platelet Count Result 326 k/mm3 (150-375); Red Blood Count 6.01 M/mm3 (4.2-5.4); Red Cell Distribution Width 17.4 % (11.5-14.5); White Blood Count 12.9 K/mm3 (4.5-10.0)
[2022-06-22 16:11] LABS: Alanine Aminotransferase 25 U/L (6-35); Albumin Level 4.4 g/dL (3.5-5.1); Alkaline Phosphatase 133 U/L (38-126); Anion Gap 11 mmol/L (8-16); Aspartate Amino Transferase 25 U/L (14-36); Bilirubin,Total 0.5 mg/dL (0.2-1.3); Blood Urea Nitrogen 8 mg/dL (7-17); Calcium 9.2 mg/dL (8.4-10.2); Carbon Dioxide 27 mmol/L (22-30); Chloride 96 mmol/L (98-107); Estimated CRCL calculation 189 ml/min; Estimated Glomerular Filt Rate > 60; Glucose 254 mg/dL (65-110); Lipase 44 U/L (23-300); Potassium 3.7 mmol/L (3.4-5.0); Sodium 134 mmol/L (137-145)
[2022-06-22 16:36] LABS: Add Urine Microscopic? YES; Appearance Urine Slightly Cloudy (Clear); Bilirubin Urine Negative (Negative); Blood Urine Negative (Negative); Color Urine Yellow (Yellow); Glucose Urine UA 3+ mg/dL (Negative); Ketones Urine 1+ mg/dL (Negative); Leukocyte Esterase Ur Negative LEU/UL (Negative); Nitrate Urine Negative (Negative); Protein Urine 1+ mg/dL (Negative); Specific Grav Ur 1.015 (1.001-1.035); Urobilinogen Urine 0.2 mg/dL (<2.0); pH Urine 8.5 (5.0-9.0)
[2022-06-22 16:44] LABS: Amorphous Sediment Urine Moderate; Mucus Urine Rare /lpf; RBC Urine 0-2 /hpf (0-2); Squamous Epithelial Cell Urine Moderate /hpf (Few); WBC Urine 0-3 /hpf
[2022-06-22] MEDS: diphenhydrAMINE HCl INJ 50 MG/ML VIAL 25 MG IV PUSH (16:45)
[2022-06-22] MEDS: METOCLOPRAMIDE HCL INJ 10 MG/2 ML VIAL IV PUSH (16:45)
[2022-06-22] MEDS: DICYCLOMINE HCL INJ 20 MG/2 ML VIAL IM (16:46)
[2022-06-22] MEDS: PANTOPRAZOLE SODIUM IV 40 MG VIAL IV PUSH (16:46)
== END 2022-06-22 17:22 | disposition home or self-care (01) ==
PROVIDERS: Emergency Provider Nurse Practitioner Family; PCP Physician Assistant
DX: A05.9 Bacterial foodborne intoxication, unspecified (principal); E11.65 Type 2 diabetes mellitus with hyperglycemia; E78.5 Hyperlipidemia, unspecified; I10 Essential (primary) hypertension; F32.A Depression, unspecified; F17.210 Nicotine dependence, cigarettes, uncomplicated; F12.90 Cannabis use, unspecified, uncomplicated; F15.90 Other stimulant use, unspecified, uncomplicated; Z79.84 Long term (current) use of oral hypoglycemic drugs; Z79.899 Other long term (current) drug therapy
CPT/HCPCS: 36415; 80053; 81001; 82948; 83690; 85025; 96361; 96372; 96374; 96375; 99284; C9113; J0500; J1200; J2405; J2765; J7030

== ENCOUNTER 2022-08-19 01:23 | Day surgery (SDC) | payer OTHER, SELFPAY ==
[2022-07-16 12:54] VITALS: BMI 42.9
--- NOTE | 2022-08-19 11:36 | WPDANESEPPF ---
Anes - Initial Pre Proc Eval Procedure: Operation Date: 08/19/22 13:00 Proposed Procedures p Esophagogastroduodenoscopy & Colonoscopy - Martin Benoit MD Date/Time: 08/19/22 11:36 Surgeon: Martin Benoit MD Pre Op Diagnosis: N/V, diarrhea, rectal bleeding Patient Data Age: 32 Gender: F Height: 1.75 m Weight: 131.8 kg Allergies Allergy/AdvReac Type Severity Reaction Status Date / Time No Known Allergies Allergy Mild Verified 07/16/22 12:52 Home Medications Medication Instructions Recorded Confirmed Type amlodipine 10 mg tablet 10 mg PO HS 07/19/21 07/16/22 History atorvastatin 20 mg tablet 20 mg PO HS 07/19/21 07/16/22 History liraglutide 0.6 mg/0.1 mL (18 mg/3 1.8 mg subcut DAILY 07/19/21 07/16/22 History mL) subcutaneous pen injector ([place]za 3-Baldo) lisinopril 20 1 tablet PO HS 07/19/21 07/16/22 History mg-hydrochlorothiazide 25 mg tablet metformin 1,000 mg tablet 1,000 mg PO BID 07/19/21 07/16/22 History sertraline 100 mg tablet 200 mg PO HS 07/19/21 07/16/22 History cholestyramine-aspartame 4 gram 4 g PO DAILY #210 grams 07/10/22 07/16/22 Rx oral powder (Questran Light) dicyclomine 20 mg tablet 20 mg PO .every 6 hours PRN 07/10/22 07/16/22 Rx abdominal pain #60 tabs pantoprazole 40 mg tablet,delayed 40 mg PO QAM #60 tabs 07/10/22 07/16/22 Rx release metoclopramide HCl 5 mg tablet 5 mg PO Q6H PRN Nausea 07/16/22 07/16/22 History (Reglan) Patient hx anesthesia problems: none Family hx anesthesia problems: none Results Review: All pre-operative results and documents have been reviewed as part of the pre-operative evaluation. [facility] Past Medical History Medical History Abdominal cramping BRBPR (bright red blood per rectum) Chronic diarrhea Cyclical vomiting with nausea Depression Diabetes Diabetes Hyperlipidemia Hypertension Marijuana smoker Tobacco abuse Surgical History Surgical History History of section Family History Family History Father Other specified failure in dosage Over dosage from street drug use Mother Other specified failure in dosage Over dosage from street drug use Other Cerebrovascular accident Heart disease Hypertension Social History Social History Smoking packs per day: 1 Smoking cigarettes per day: 20.0 Years smoked: 15 Smoking pack-years: 15.00 Smoking status: Current every day smoker Tobacco type: cigarettes Second hand tobacco smoke exposure: Yes Alcohol intake: former Substance use: current Substance use type: marijuana Other substance usage details: CURRENTLY MARIJUANA-DAILY, Oct 27 2019 last used methamphetamine Last use: 2X weekly Living arrangements: with family Spiritual care concerns: No Anes - Eval Final PreProcedure Day of Procedure 08/19/22 11:36 Patient weight: morbidly obese Heart: regular rate and rhythm Lungs: clear to auscultation Airway: Mallampati scale class II Neurological: alert and oriented Last oral intake: >/= 8 hours ASA classification: IV Emergent: no Anesthetic plan: proceed Anesthesia type and monitoring: general GIVS and standard monitoring Results Review: All pre-operative results and documents have been reviewed as part of the pre-operative evaluation. Informed Consent: The patient's anesthetic plan and its attendant risks and benefits were discussed with the patient/family/POA. Questions were solicited and answers provided to the satisfaction of the patient/family/POA.
[2022-08-19 11:46] VITALS: BP 182/107; PULSE 86; RESP 17; TEMP 36; O2SAT 99; BMI 40.8
[2022-08-19 11:57] LABS: Glucose Point of Care 290 mg/dl (65-105)
[2022-08-19] MEDS: LACTATED RINGERS 1,000 ML 150 ML IV CONT (11:58)
--- NOTE | 2022-08-19 12:21 | PM.HPGS ---
History of Present Illness History of Present Illness Consent: Risks, benefits, and alternatives have been discussed and questions answered. Patient agrees to proceed with procedure. Chief complaint: N/V, diarrhea, rectal bleeding Narrative: Fara Lilly is a 32 year old female with cycles of n/v (uses marijuana) and also DM, intermittent diarrhea. Never had scopes. Using ppi Review of Systems Constitutional: Constitutional: Denies headache(s) and Denies weakness Eyes: Eyes: Denies blurry vision ENT: Reports Normal hearing present, Denies headache(s) and Denies neck pain Cardiovascular: Cardiovascular: Denies chest pain and Denies dyspnea Respiratory: Respiratory: Denies dyspnea Gastrointestinal: Gastrointestinal: Reports no additional gastrointestinal complaints Genitourinary: Genitourinary: Denies dysuria Musculoskeletal: Musculoskeletal: Denies neck pain Integumentary/Breasts: Skin/Breast: Denies dry skin Neurologic: Reports Normal hearing present, Denies headache(s) and Denies weakness Psychiatric: Psychiatric: Denies anxiety Endocrine: Endocrine: Denies change in body appearance Hematologic/Lymphatic: Hematologic/Lymphatic: Denies easy bleeding Allergic/Immunologic: Allergic/Immunologic: Denies urticaria PMFSH Past Medical History Medical History (Updated 08/19/22 @ 12:22 by Martin Benoit MD) Abdominal cramping BRBPR (bright red blood per rectum) Chronic diarrhea Cyclical vomiting with nausea Depression Diabetes Diabetes Hyperlipidemia Hypertension Marijuana smoker Tobacco abuse Surgical History Surgical History History of section Family History Family History Father Other specified failure in dosage Over dosage from street drug use Mother Other specified failure in dosage Over dosage from street drug use Other Cerebrovascular accident Heart disease Hypertension Social History Social History Smoking packs per day: 1 Smoking cigarettes per day: 20.0 Years smoked: 15 Smoking pack-years: 15.00 Smoking status: Current every day smoker Tobacco type: cigarettes Second hand tobacco smoke exposure: Yes Alcohol intake: former Substance use: current Substance use type: marijuana Other substance usage details: CURRENTLY MARIJUANA-DAILY, Oct 27 2019 last used methamphetamine Last use: 2X weekly Living arrangements: with family Spiritual care concerns: No Meds Home Medications and Allergies Home Medications Medication Instructions Recorded Confirmed Type amlodipine 10 mg tablet 10 mg PO HS 07/19/21 08/19/22 History atorvastatin 20 mg tablet 20 mg PO HS 07/19/21 08/19/22 History liraglutide 0.6 mg/0.1 mL (18 mg/3 1.8 mg subcut DAILY 07/19/21 08/19/22 History mL) subcutaneous pen injector ([place]za 3-Baldo) lisinopril 20 1 tablet PO HS 07/19/21 08/19/22 History mg-hydrochlorothiazide 25 mg tablet metformin 1,000 mg tablet 1,000 mg PO BID 07/19/21 08/19/22 History sertraline 100 mg tablet 200 mg PO HS 07/19/21 08/19/22 History cholestyramine-aspartame 4 gram 4 g PO DAILY #210 grams 07/10/22 08/19/22 Rx oral powder (Questran Light) dicyclomine 20 mg tablet 20 mg PO .every 6 hours PRN 07/10/22 08/19/22 Rx abdominal pain #60 tabs pantoprazole 40 mg tablet,delayed 40 mg PO QAM #60 tabs 07/10/22 08/19/22 Rx release metoclopramide HCl 5 mg tablet 5 mg PO Q6H PRN Nausea 07/16/22 08/19/22 History ([place]) Allergies Allergy/AdvReac Type Severity Reaction Status Date / Time No Known Allergies Allergy Mild Verified 08/19/22 11:40 Vital Signs Vital Signs - 24 hr 08/19/22 11:46 Temperature 96.8 F L Pulse Rate 86 Respiratory Rate 17 Blood Pressure 182/107 H Pulse Oximetry 99 Oxygen Delivery Room Air
--- NOTE | 2022-08-19 12:32 | SUR.OPER ---
EGD END AT 1232. COLON START AT 1238.
[2022-08-19] MEDS: BENZOCAINE (*SP) 60 ML SPRAY CAN (HURRICAINE) 1 SPRAY MUCOUS MEM (12:35)
[2022-08-19 12:50] VITALS: BP 141/86; PULSE 78; RESP 18; O2SAT 97
[2022-08-19 13:00] VITALS: BP 158/102; PULSE 78; RESP 24; O2SAT 97
[2022-08-19 13:10] VITALS: BP 161/102; PULSE 71; RESP 16; O2SAT 97
== END 2022-08-19 13:44 | disposition home or self-care (01) ==
PROVIDERS: PCP Physician Assistant; Visit Provider Internal Medicine Gastroenterology
PROC: 0DJ08ZZ Inspection of Upper Intestinal Tract, Via Natural or Artificial Opening Endoscopic (ICD-10-PCS; CPT 43235; principal; 2022-08-19 13:00)
DX: K21.00 Gastro-esophageal reflux disease with esophagitis, without bleeding (principal); K29.70 Gastritis, unspecified, without bleeding; R19.7 Diarrhea, unspecified; K64.8 Other hemorrhoids; R11.15 Cyclical vomiting syndrome unrelated to migraine; I10 Essential (primary) hypertension; E78.5 Hyperlipidemia, unspecified; E11.9 Type 2 diabetes mellitus without complications; F32.A Depression, unspecified; F12.90 Cannabis use, unspecified, uncomplicated; F17.210 Nicotine dependence, cigarettes, uncomplicated; Z79.899 Other long term (current) drug therapy; Z79.84 Long term (current) use of oral hypoglycemic drugs; E66.01 Morbid (severe) obesity due to excess calories; Z68.41 Body mass index [BMI] 40.0-44.9, adult
CPT/HCPCS: 43239; 45380; 82948; 88305; J2704; J7120

== ENCOUNTER 2022-09-04 07:48 | Outpatient (CLI) | payer OTHER, SELFPAY ==
--- NOTE | ~2022-09-04 | NM_ITS ---
EXAM: NM gastric emptying study DATE: 09/04/2022 12:23 INDICATION: Nausea and vomiting. Diabetes. TECHNIQUE: A gastric emptying study was performed using the methodology of Yelena LOPEZ, et al. J Nucl Med 2007; 48:568-572. The patient was given a meal consisting of 2 scrambled eggs labeled with 1.09 mCi Tc-99m sulfur colloid, 2 slices of toast, two packages of jam, and approximately 120 mL of water. Simultaneous anterior and posterior 1-min images of the abdomen were obtained with the patient supin e at multiple time points over a total period of 4 hours. The geometric mean of anterior and posterio r views was determined, and the percentage retention was calculated for each time point. COMPARISON: None. FINDINGS: Gastric retention of the radiotracer-labeled meal was 102%, 84%, and 49% at the 1-hour, 2-hour, and 4 -hour time points, respectively. With this technique, apparent rapid gastric emptying is suggested by <30% gastric retention at 1 hour. Delayed gastric emptying is defined by gastric retention of >90% a t 1 hour, >60% retention at 2 hours, or >10% retention at 4 hours. IMPRESSION: 1. Delayed gastric emptying. Reviewed, dictated and finalized at location A. UP SCAN COORDINATOR
== END 2022-09-04 07:49 | disposition home or self-care (01) ==
LOC: ANHIMG 07:50
PROVIDERS: PCP Physician Assistant; Visit Provider Internal Medicine Gastroenterology
DX: E11.9 Type 2 diabetes mellitus without complications (principal); R11.15 Cyclical vomiting syndrome unrelated to migraine; K30 Functional dyspepsia
CPT/HCPCS: 78264; A9541

== ENCOUNTER 2022-11-02 14:41 | Emergency (ER) | payer OTHER, SELFPAY ==
[2022-11-02 14:41] VITALS: BP 188/106; PULSE 89; RESP 18; TEMP 36.8; O2SAT 98
--- NOTE | 2022-11-02 15:42 | ED.NAVMDI ---
HPI - Nausea/Vomiting/Diarrhea General Chief complaint: Nausea/Vomiting/Diarrhea Stated complaint: N/V Time Seen by Provider: 11/02/22 14:53 History of Present Illness HPI Narrative: Back patient is a 32-year-old female with history of poorly controlled diabetes and gastroparesis who presents ER with nausea and vomiting. Ongoing for 3 days. Cannot keep down her Reglan/Benadryl. Subjective fevers and chills. Has abdominal cramping. No diarrhea. No alleviating factors. Reports if she takes a sip water immediately comes back up. Has follow-up in a couple days with endocrinology. Related Data Home Medications Medication Instructions Recorded Confirmed amlodipine 10 mg tablet 10 mg PO HS 07/19/21 09/17/22 atorvastatin 20 mg tablet 20 mg PO HS 07/19/21 09/17/22 lisinopril 20 1 tablet PO HS 07/19/21 09/17/22 mg-hydrochlorothiazide 25 mg tablet metformin 1,000 mg tablet 1,000 mg PO BID 07/19/21 09/17/22 sertraline 100 mg tablet 200 mg PO HS 07/19/21 09/17/22 insulin glargine 100 unit/mL 10 unit subcut QPM 09/17/22 09/17/22 subcutaneous solution (Lantus U-100 Insulin) Allergies Allergy/AdvReac Type Severity Reaction Status Date / Time No Known Allergies Allergy Mild Verified 09/17/22 11:35 Review of Systems Review of Systems: All systems reviewed & are unremarkable except as noted in HPI and below Constitutional: Constitutional: Reports chills, Reports fatigue and Reports fever(s) ENT: Denies nasal congestion and Denies sore throat Cardiovascular: Cardiovascular: Denies chest pain, Denies rapid heart rate and Denies radiating jaw, neck or arm pain Respiratory: Respiratory: Denies cough and Denies dyspnea Gastrointestinal: Gastrointestinal: Reports abdominal pain (Cramping), Reports nausea and Reports vomiting PMFSH Past Medical History Medical History (Updated 11/02/22 @ 18:05 by Endy Rushing MD) Abdominal cramping BRBPR (bright red blood per rectum) Chronic diarrhea Cyclical vomiting with nausea Depression Diabetes Diabetes Diabetic gastroparesis Gastroparesis GERD with esophagitis Hyperlipidemia Hypertension Irritable bowel syndrome with diarrhea Marijuana smoker Tobacco abuse Surgical History Surgical History History of section Family History Family History Father Other specified failure in dosage Over dosage from street drug use Mother Other specified failure in dosage Over dosage from street drug use Other Cerebrovascular accident Heart disease Hypertension Social History Social History Smoking packs per day: 1 Smoking cigarettes per day: 20.0 Years smoked: 15 Smoking pack-years: 15.00 Smoking status: Current every day smoker Tobacco type: cigarettes Second hand tobacco smoke exposure: Yes Alcohol intake: former Substance use: current Substance use type: marijuana Other substance usage details: CURRENTLY MARIJUANA-DAILY, Oct 27 2019 last used methamphetamine Last use: 2X weekly Living arrangements: with family Spiritual care concerns: No Exam Narrative: GENERAL: Well-appearing, morbidly obese, and in no acute distress. HEAD: Normocephalic, atraumatic. ENT: Mucous membranes moist. CHEST: Clear to auscultation. No respiratory distress. HEART: Regular rate and rhythm. Normal peripheral pulses. ABDOMEN: Soft, nontender, nondistended. EXTREMITIES: Normal range of motion. No edema. SKIN: Warm, dry, no rash. NEURO: Alert and oriented x3. PSYCH: Normal mood and affect. Course Course Emergency Course: Discussed lab work including elevated white blood cell count but felt to be related to her persistent vomiting. Abdominal exam is benign on repeat exam. Patient not felt to need a CT scan. Patient is tolerating oral fluids
[2022-11-02 15:44] LABS: Basophils Absolute Auto 0.1 K/mm3 (0.0-0.1); Basophils Percent Auto 0.4 % (0.2-1.2); Eosinophils Percent Auto 0.2 % (0-4.4); Hematocrit 49.9 % (37.0-47.0); Hemoglobin 16.7 g/dL (12.0-15.0); Immature Granulocyte Absolute 0.06 K/mm3 (0.00-0.031); Immature Granulocyte Percent A 0.5 % (0-0.5); Lymphocytes Absolute Auto 1.63 K/mm3 (0.9-3.2); Lymphocytes Percent Auto 12.4 % (18.3-44.2); Mean Corpuscular HGB Conc 33.5 g/dl (32-36); Mean Corpuscular Hemoglobin 26.2 pg (26-34); Mean Corpuscular Volume 78.3 fl (80-100); Mean Platelet Volume 10.9 fl (7.4-10.4); Monocytes Absolute Auto 0.4 K/mm3 (0.1-0.6); Neutrophils Percent Auto 83.5 % (45.5-73.1); Platelet Count Result 312 k/mm3 (150-375); Red Blood Count 6.37 M/mm3 (4.2-5.4); Red Cell Distribution Width 18.2 % (11.5-14.5); White Blood Count 13.2 K/mm3 (4.5-10.0)
[2022-11-02 16:13] LABS: Alanine Aminotransferase 33 U/L (6-35); Albumin Level 4.7 g/dL (3.5-5.1); Alkaline Phosphatase 149 U/L (38-126); Anion Gap 12 mmol/L (8-16); Aspartate Amino Transferase 23 U/L (14-36); Bilirubin,Total 0.7 mg/dL (0.2-1.3); Blood Urea Nitrogen 9 mg/dL (7-17); Calcium 9.6 mg/dL (8.4-10.2); Carbon Dioxide 25 mmol/L (22-30); Chloride 98 mmol/L (98-107); Estimated CRCL calculation 232 ml/min; Estimated Glomerular Filt Rate > 60; Glucose 303 mg/dL (65-110); Lipase 24 U/L (23-300); Sodium 135 mmol/L (137-145)
[2022-11-02] MEDS: SODIUM CHLORIDE 0.9% IV 1,000 ML 999 ML IV CONT (16:32)
[2022-11-02] MEDS: METOCLOPRAMIDE HCL INJ 10 MG/2 ML VIAL IV PUSH (16:33)
== END 2022-11-02 19:05 | disposition home or self-care (01) ==
PROVIDERS: Emergency Provider Emergency Medicine; PCP Physician Assistant
DX: E11.43 Type 2 diabetes mellitus with diabetic autonomic (poly)neuropathy (principal); K31.84 Gastroparesis; I10 Essential (primary) hypertension; E78.5 Hyperlipidemia, unspecified; K21.00 Gastro-esophageal reflux disease with esophagitis, without bleeding; K58.0 Irritable bowel syndrome with diarrhea; F17.210 Nicotine dependence, cigarettes, uncomplicated; Z79.4 Long term (current) use of insulin; Z79.84 Long term (current) use of oral hypoglycemic drugs
CPT/HCPCS: 36415; 80053; 83690; 85025; 96361; 96374; 99284; J2765; J7030

== ENCOUNTER 2022-12-27 14:38 | Emergency (ER) | payer OTHER, SELFPAY ==
--- NOTE | ~2022-12-27 | CT_ITS ---
EXAMINATION: CT abdomen pelvis w con DATE: 12/27/2022 16:42 INDICATION: Abdominal pain TECHNIQUE: Computed tomography (CT) of the abdomen and pelvis was performed with intravenous contrast . Automated exposure control and iterative reconstruction technique were employed. The dose-length pr oduct was 1465.09 mGy-cm. COMPARISON: 07/19/2021. FINDINGS: Lower thorax: 2.4 cm peripheral soft tissue density nodule in the left lower lobe, likely granuloma o r hamartoma. Liver: Normal. Biliary/Gallbladder: Gallbladder is absent. No bile duct dilation. Pancreas: No mass or duct dilation. Spleen: Normal. Adrenals:No mass. Kidneys: No mass, stone, or hydronephrosis. GI tract: No small or large bowel dilation. Normal appendix. Mesentery/Peritoneum: No ascites, mass, or free air. Retroperitoneum: No mass. Pelvis: Pelvic organs are within normal limits. Soft Tissues: Soft tissues and body wall unremarkable. Bones: No acute osseous finding. IMPRESSION: No acute process detected in the abdomen or pelvis. Steatosis. Reviewed, dictated and finalized at location K.
[2022-12-27 14:42] VITALS: BP 150/78; PULSE 90; RESP 18; TEMP 36.6; O2SAT 99
[2022-12-27 14:48] LABS: Glucose Point of Care 238 mg/dl (65-105)
[2022-12-27 15:07] LABS: Basophils Absolute Auto 0.1 K/mm3 (0.0-0.1); Basophils Percent Auto 0.5 % (0.2-1.2); Eosinophils Percent Auto 0.1 % (0-4.4); Hematocrit 46.7 % (37.0-47.0); Hemoglobin 15.4 g/dL (12.0-15.0); Immature Granulocyte Absolute 0.07 K/mm3 (0.00-0.031); Immature Granulocyte Percent A 0.6 % (0-0.5); Lymphocytes Absolute Auto 2.15 K/mm3 (0.9-3.2); Mean Corpuscular Hemoglobin 26.8 pg (26-34); Mean Corpuscular Volume 81.2 fl (80-100); Monocytes Absolute Auto 0.8 K/mm3 (0.1-0.6); Monocytes Percent Auto 6.1 % (2.6-8.5); Neutrophils Absolute Auto 9.6 K/mm3 (1.3-6.7); Neutrophils Percent Auto 75.7 % (45.5-73.1); Platelet Count Result 263 k/mm3 (150-375); Red Blood Count 5.75 M/mm3 (4.2-5.4); Red Cell Distribution Width 17.3 % (11.5-14.5); White Blood Count 12.6 K/mm3 (4.5-10.0)
[2022-12-27 15:23] LABS: Alanine Aminotransferase 26 U/L (6-35); Albumin Level 4.5 g/dL (3.5-5.1); Alkaline Phosphatase 116 U/L (38-126); Anion Gap 11 mmol/L (8-16); Aspartate Amino Transferase 25 U/L (14-36); Bilirubin,Total 0.6 mg/dL (0.2-1.3); Blood Urea Nitrogen 8 mg/dL (7-17); Calcium 9.2 mg/dL (8.4-10.2); Carbon Dioxide 25 mmol/L (22-30); Chloride 98 mmol/L (98-107); Estimated CRCL calculation 230 ml/min; Estimated Glomerular Filt Rate > 60; Glucose 212 mg/dL (65-110); Magnesium 1.7 mg/dL (1.6-2.3); Phosphorus 3.2 mg/dL (2.5-4.5); Potassium 3.5 mmol/L (3.4-5.0); Sodium 134 mmol/L (137-145)
[2022-12-27 15:26] LABS: Beta-Hydroxybutyrate/Acetoacetate 0.51 mmol/L (0.02-0.27)
[2022-12-27 15:59] LABS: Appearance Urine Clear (Clear); Bilirubin Urine Negative (Negative); Blood Urine Negative (Negative); Color Urine Yellow (Yellow); Glucose Urine UA Negative (Negative); Ketones Urine 1+ mg/dL (Negative); Leukocyte Esterase Ur Negative LEU/UL (Negative); Nitrate Urine Negative (Negative); Protein Urine Negative (Negative); Specific Grav Ur 1.006 (1.001-1.035); Urobilinogen Urine 0.2 mg/dL (<2.0); pH Urine 6.5 (5.0-9.0)
[2022-12-27 16:03] LABS: Add Urine Microscopic? NO
--- NOTE | 2022-12-27 16:04 | ED.GENADULT ---
HPI - General Adult General Chief complaint: Recheck/Abnormal Lab/Rx Stated complaint: high BS, N/V Time Seen by Provider: 12/27/22 16:02 Source: patient Mode of arrival: ambulatory Limitations: no limitations History of Present Illness HPI narrative: 32 years old white female drove herself to the emergency room complaining of upper abdominal pain, and heartburn, nausea and vomiting and diarrhea. Patient reports vomiting at least 10 times since yesterday, diarrhea at least 3 times since last night, upper abdominal pain since yesterday morning. Patient is telling me that she have at least 15 similar episodes in the past secondary to gastroparesis and sometimes food poisoning sometimes viral infection. Was hospitalized 3 weeks ago at [facility] for similar symptoms. Patient went to [facility] yesterday and was told that she have nothing serious and need to go home. Patient is upset about it that is why she came to us today. She denies any fever or chills or sick contact. She is telling me that she have trouble to control her blood glucose level. History of diabetes, hypertension, hyperlipidemia, hypothyroidism, cholecystectomy. Related Data Home Medications Medication Instructions Recorded Confirmed amlodipine 10 mg tablet 10 mg PO HS 07/19/21 12/03/22 atorvastatin 20 mg tablet 20 mg PO HS 07/19/21 12/03/22 lisinopril 20 1 tablet PO HS 07/19/21 12/03/22 mg-hydrochlorothiazide 25 mg tablet sertraline 100 mg tablet 200 mg PO HS 07/19/21 12/03/22 insulin glargine 100 unit/mL 10 unit subcut QPM 09/17/22 12/03/22 subcutaneous solution (Lantus U-100 Insulin) dapagliflozin 5 mg tablet (Farxiga) See Rx Instructions PO DAILY 12/03/22 12/03/22 glimepiride 1 mg tablet See Rx Instructions PO QAM 12/03/22 12/03/22 metformin 1,000 mg tablet 500 mg PO BID 12/03/22 12/03/22 Allergies Allergy/AdvReac Type Severity Reaction Status Date / Time No Known Allergies Allergy Mild Verified 12/27/22 15:06 Review of Systems Review of Systems: All systems reviewed & are unremarkable except as noted in HPI and below PMFSH Past Medical History Medical History Abdominal cramping Abnormal complete blood count BRBPR (bright red blood per rectum) Chronic diarrhea Cyclical vomiting with nausea Depression Diabetes Diabetes Diabetic gastroparesis Gastroparesis GERD with esophagitis Hyperlipidemia Hypertension Hypertension Irritable bowel syndrome with diarrhea Marijuana smoker Tobacco abuse Surgical History Surgical History History of section Family History Family History Father Other specified failure in dosage Over dosage from street drug use Mother Other specified failure in dosage Over dosage from street drug use Other Cerebrovascular accident Heart disease Hypertension Social History Social History Smoking packs per day: 1 Smoking cigarettes per day: 20.0 Years smoked: 15 Smoking pack-years: 15.00 Smoking status: Current every day smoker Tobacco type: cigarettes Second hand tobacco smoke exposure: Yes Alcohol intake: former Substance use: current Substance use type: marijuana Other substance usage details: CURRENTLY MARIJUANA-DAILY, Oct 27 2019 last used methamphetamine Last use: 2X weekly Living arrangements: with family Spiritual care concerns: No Exam Narrative: General appearance: Well-developed, well-nourished, morbidly obese Skin: Normal color Head: Normocephalic, nontraumatic Eyes: Clear conjunctiva ENT: Oropharynx normal, ears normal, nose normal Neck: Supple, nontender Chest and respiratory: Airway patent, no respiratory distress, no accessory muscle use Heart: Regular rate/rhythm Abdomen: Soft, diffuse
[2022-12-27] MEDS: ONDANSETRON INJ 4 MG/2 ML VIAL IV PUSH (16:10)
[2022-12-27] MEDS: SODIUM CHLORIDE 0.9% IV 1,000 ML 999 ML IV CONT ×2 (16:11→16:52)
[2022-12-27] MEDS: HYDROmorphone HCL INJ (*CRX) 1 MG/ML SYR 0.5 MG IV PUSH (16:11)
[2022-12-27 18:49] VITALS: BP 162/73; PULSE 85; RESP 19; O2SAT 98
[2022-12-27 20:04] VITALS: BP 169/98; PULSE 73; RESP 16; O2SAT 98
== END 2022-12-27 20:07 | disposition home or self-care (01) ==
PROVIDERS: Emergency Provider Emergency Medicine; PCP Physician Assistant
DX: K52.9 Noninfective gastroenteritis and colitis, unspecified (principal); E11.43 Type 2 diabetes mellitus with diabetic autonomic (poly)neuropathy; K31.84 Gastroparesis; I10 Essential (primary) hypertension; K21.00 Gastro-esophageal reflux disease with esophagitis, without bleeding; K58.0 Irritable bowel syndrome with diarrhea; F17.210 Nicotine dependence, cigarettes, uncomplicated; Z79.4 Long term (current) use of insulin; Z79.84 Long term (current) use of oral hypoglycemic drugs
CPT/HCPCS: 36415; 74177; 80053; 81003; 81025; 82010; 82948; 83735; 84100; 85025; 96361; 96374; 96375; 99284; J1170; J2405; J7030; Q9967

== ENCOUNTER 2023-02-10 18:00 | Emergency (ER) | payer OTHER, SELFPAY | END 2023-02-11 00:20 | disposition left against medical advice (07) | LOC: ANHED 20:31 | PROVIDERS: PCP Physician Assistant | DX: Z53.21 Procedure and treatment not carried out due to patient leaving prior to being seen by health care provider (principal) | CPT/HCPCS: 99199 ==

== ENCOUNTER 2023-02-14 13:44 | Emergency (ER) | payer OTHER, SELFPAY ==
--- NOTE | ~2023-02-14 | CT_ITS ---
EXAMINATION: CT abdomen pelvis w con DATE: 02/14/2023 16:02 INDICATION: Epigastric and lower abdominal pain. Back pain. Nausea and vomiting. 2.0 x 2.1 cm TECHNIQUE: Computed tomography (CT) of the abdomen and pelvis was performed with 100 mL Omnipaque-350 intravenous contrast. Automated exposure control and iterative reconstruction technique were employe d. The dose-length product was 1512.63 mGy-cm. COMPARISON: CT dated 12/27/2022 and 07/19/2021 FINDINGS: No significant interval change in a 2.2 x 2.1 cm mass at the posterior left lower lobe with associate d overlying pleural thickening which previously measured 2.4 x 2.1 cm. This mass is new since the ear lier study in 2020. Heart size is normal. No pericardial or pleural effusion. There are several subtl e subcentimeter low-attenuation lesions scattered throughout the liver which are without definitive c orrelate on the prior imaging. Cholecystectomy clips at the gallbladder fossa. Spleen, pancreas, bila teral adrenal glands and kidneys are normal. Bowels including the appendix are normal. Bladder, uteru s and bilateral adnexa are unremarkable. Chronic central superior endplate compression fracture at L1 . Severe disc height loss and mild left-sided, moderate right-sided facet osteoarthritis at L5-S1. Ot herwise mild spondylosis in the more cephalad lumbar and lower thoracic spine. IMPRESSION: 1. Multiple subtle subcentimeter hypodense lesions scattered throughout the liver most typically repr esenting small cysts or hemangiomas but which are without evident correlate on the prior imaging. Met astatic disease unlikely given patient age but could also consider infectious etiology. No other acut e intra-abdominal/pelvic process. 2. 2.2 x 2.1 cm left lower lobe nodule which contacts the adjacent pleural there is mild thickening. Malignancy would be unlikely given patient age and would favor an infectious or inflammatory etiology . Typical recommendation for pulmonary nodules in those of less than 35 years of age would recommend 6 month follow-up low-dose noncontrast chest CT. Ages unclear whether given the relatively large size and evident adjacent pleural thickening whether a more aggressive follow-up/workup would be indicate d. Reviewed, dictated and finalized at location A. IMPRESSION: 1. Multiple subtle subcentimeter hypodense lesions scattered throughout the heaven er most typically representing small cysts or hemangiomas but which are without evident correlate on the prior imaging. Metastatic disease unlikely given roger ent age but could also consider infectious etiology. No other acute intra-abdom inal/pelvic process. 2. 2.2 x 2.1 cm left lower lobe nodule which contacts the adjacent pleural ther e is mild thickening. Malignancy would be unlikely given patient age and would favor an infectious or inflammatory etiology. Typical recommendation for pulmon amy nodules in those of less than 35 years of age would recommend 6 month follo w-up low-dose noncontrast chest CT. Ages unclear whether given the relatively l arge size and evident adjacent pleural thickening whether a more aggressive fol low-up/workup would be indicated.
[2023-02-14 13:46] VITALS: BP 172/119; PULSE 89; RESP 16; TEMP 36.6; O2SAT 98
[2023-02-14 13:56] LABS: Glucose Point of Care 202 mg/dl (65-105)
[2023-02-14 14:25] LABS: Basophils Absolute Auto 0.1 K/mm3 (0.0-0.1); Basophils Percent Auto 0.6 % (0.2-1.2); Eosinophils Percent Auto 0.1 % (0-4.4); Hematocrit 47.5 % (37.0-47.0); Hemoglobin 15.6 g/dL (12.0-15.0); Immature Granulocyte Absolute 0.05 K/mm3 (0.00-0.031); Immature Granulocyte Percent A 0.3 % (0-0.5); Lymphocytes Absolute Auto 2.14 K/mm3 (0.9-3.2); Lymphocytes Percent Auto 13.4 % (18.3-44.2); Mean Corpuscular HGB Conc 32.8 g/dl (32-36); Mean Corpuscular Volume 82.3 fl (80-100); Mean Platelet Volume 10.9 fl (7.4-10.4); Monocytes Absolute Auto 0.7 K/mm3 (0.1-0.6); Monocytes Percent Auto 4.6 % (2.6-8.5); Neutrophils Absolute Auto 12.9 K/mm3 (1.3-6.7); Platelet Count Result 233 k/mm3 (150-375); Red Blood Count 5.77 M/mm3 (4.2-5.4); Red Cell Distribution Width 15.5 % (11.5-14.5); White Blood Count 15.9 K/mm3 (4.5-10.0)
[2023-02-14 14:48] LABS: Appearance Urine Turbid (Clear); Bacteria Urine Rare /hpf; Bilirubin Urine Negative (Negative); Blood Urine Negative (Negative); Color Urine Dark Yellow (Yellow); Glucose Urine UA Trace mg/dL (Negative); Ketones Urine Negative (Negative); Leukocyte Esterase Ur 2+ LEU/UL (Negative); Need Manual Microscopic Reviewed; Nitrate Urine Negative (Negative); Protein Urine 1+ mg/dL (Negative); RBC Urine 0-2 /hpf (0-2); Specific Grav Ur 1.023 (1.001-1.035); Squamous Epithelial Cell Urine Many /hpf (Few)
[2023-02-14 14:49] LABS: Alanine Aminotransferase 30 U/L (6-35); Albumin Level 4.2 g/dL (3.5-5.1); Alkaline Phosphatase 92 U/L (38-126); Anion Gap 8 mmol/L (8-16); Aspartate Amino Transferase 28 U/L (14-36); Bilirubin,Total 0.7 mg/dL (0.2-1.3); Blood Urea Nitrogen 12 mg/dL (7-17); Calcium 8.9 mg/dL (8.4-10.2); Carbon Dioxide 26 mmol/L (22-30); Chloride 101 mmol/L (98-107); Estimated CRCL calculation 186 ml/min; Estimated Glomerular Filt Rate > 60; Glucose 193 mg/dL (65-110); Lipase 22 U/L (23-300); Potassium 4.2 mmol/L (3.4-5.0); Sodium 135 mmol/L (137-145)
[2023-02-14 14:51] LABS: Add Urine Microscopic? YES
--- NOTE | 2023-02-14 14:52 | ED.NAVMDI ---
HPI - Nausea/Vomiting/Diarrhea General Chief complaint: Nausea/Vomiting/Diarrhea Stated complaint: vomiting Time Seen by Provider: 02/14/23 13:56 Source: patient Mode of arrival: ambulatory Limitations: no limitations History of Present Illness HPI Narrative: Patient is a 32 y/o female, with PMH of insulin dependent DM, gastroparesis, who presents to the ED with c/o N/V/D. Patient reports having persistent nausea and vomiting over the last 4 days. She states she has been unable to keep down any food or drink. She has also had persistent diarrhea, denies rectal bleeding or melena. She also c/o subjective fevers and pain to her lower back and diffusely throughout her abdomen. She has been unable to keep down any pain medication, bentyl, reglan. Denies any urinary sx's, cough, cold sx's. Related Data Home Medications Medication Instructions Recorded Confirmed amlodipine 10 mg tablet 10 mg PO HS 07/19/21 12/03/22 atorvastatin 20 mg tablet 20 mg PO HS 07/19/21 12/03/22 lisinopril 20 1 tablet PO HS 07/19/21 12/03/22 mg-hydrochlorothiazide 25 mg tablet sertraline 100 mg tablet 200 mg PO HS 07/19/21 12/03/22 insulin glargine 100 unit/mL 10 unit subcut QPM 09/17/22 12/03/22 subcutaneous solution (Lantus U-100 Insulin) dapagliflozin 5 mg tablet (Farxiga) See Rx Instructions PO DAILY 12/03/22 12/03/22 glimepiride 1 mg tablet See Rx Instructions PO QAM 12/03/22 12/03/22 metformin 1,000 mg tablet 500 mg PO BID 12/03/22 12/03/22 Allergies Allergy/AdvReac Type Severity Reaction Status Date / Time No Known Allergies Allergy Mild Verified 12/27/22 15:06 Review of Systems Review of Systems: CONSTITUTIONAL: Denies fever, chills, or sweats. CARDIOVASCULAR: Denies chest pain. RESPIRATORY: Denies dyspnea. GASTROINTESTINAL: See HPI. GENITOURINARY: Denies dysuria or hematuria. SKIN: Denies rash or itching. MUSCULOSKELETAL: See HPI. All systems reviewed & are unremarkable except as noted in HPI and below PMFSH Past Medical History Medical History Abdominal cramping Abnormal complete blood count BRBPR (bright red blood per rectum) Chronic diarrhea Cyclical vomiting with nausea Depression Diabetes Diabetes Diabetic gastroparesis Gastroparesis GERD with esophagitis Hyperlipidemia Hypertension Hypertension Irritable bowel syndrome with diarrhea Marijuana smoker Tobacco abuse Surgical History Surgical History History of section Family History Family History Father Other specified failure in dosage Over dosage from street drug use Mother Other specified failure in dosage Over dosage from street drug use Other Cerebrovascular accident Heart disease Hypertension Social History Social History Smoking packs per day: 1 Smoking cigarettes per day: 20.0 Years smoked: 15 Smoking pack-years: 15.00 Smoking status: Current every day smoker Tobacco type: cigarettes Second hand tobacco smoke exposure: Yes Alcohol intake: former Substance use: current Substance use type: marijuana Other substance usage details: CURRENTLY MARIJUANA-DAILY, Oct 27 2019 last used methamphetamine Last use: 2X weekly Living arrangements: with family Spiritual care concerns: No Exam Narrative: GENERAL: Mildly unkempt, morbidly obese, non-toxic, in no acute distress. HEAD: Normocephalic, atraumatic. NECK: Supple. No adenopathy, no masses. RESPIRATORY: Airway patent, respirations nonlabored. Clear to auscultation bilaterally, no rales, rhonchi, wheezing. CARDIOVASCULAR: Regular rate and rhythm without murmurs, rubs, or gallops. Radial pulses 2+ and equal bilaterally. ABDOMINAL: Soft, diffuse nonfocal tenderness throughout abdomen, nondisten
[2023-02-14] MEDS: MORPHINE SULFATE (*CRX) 4 MG/ML INJ IV PUSH (14:58)
[2023-02-14] MEDS: SODIUM CHLORIDE 0.9% IV 1,000 ML 999 ML IV CONT ×2 (14:58→16:00)
[2023-02-14] MEDS: METOCLOPRAMIDE HCL INJ 10 MG/2 ML VIAL IV PUSH (14:58)
[2023-02-14] MEDS: PANTOPRAZOLE SODIUM IV 40 MG VIAL IV PUSH (14:58)
[2023-02-14 18:11] VITALS: BP 165/99; PULSE 90; RESP 16
== END 2023-02-14 18:12 | disposition home or self-care (01) ==
PROVIDERS: Emergency Provider Physician Assistant; PCP Physician Assistant
DX: N30.00 Acute cystitis without hematuria (principal); R11.2 Nausea with vomiting, unspecified; K76.9 Liver disease, unspecified; R91.1 Solitary pulmonary nodule; F17.210 Nicotine dependence, cigarettes, uncomplicated; F32.A Depression, unspecified; E11.9 Type 2 diabetes mellitus without complications; K21.9 Gastro-esophageal reflux disease without esophagitis; I10 Essential (primary) hypertension; Z79.4 Long term (current) use of insulin
CPT/HCPCS: 36415; 74177; 80053; 81001; 81025; 82948; 83690; 85025; 87077; 87086; 87088; 87186; 96361; 96374; 96375; 99284; C9113; J2270; J2765; J7030; Q9967

== ENCOUNTER 2023-03-15 16:25 | Emergency (ER) | payer OTHER, SELFPAY ==
[2023-03-15 16:34] VITALS: BP 161/112; PULSE 85; RESP 22; TEMP 36.8; O2SAT 100
[2023-03-15 16:40] LABS: Glucose Point of Care 225 mg/dl (65-105)
[2023-03-15 16:47] LABS: Basophils Absolute Auto 0.1 K/mm3 (0.0-0.1); Basophils Percent Auto 0.8 % (0.2-1.2); Eosinophils Percent Auto 0.1 % (0-4.4); Hematocrit 49.5 % (37.0-47.0); Hemoglobin 16.2 g/dL (12.0-15.0); Immature Granulocyte Absolute 0.04 K/mm3 (0.00-0.031); Immature Granulocyte Percent A 0.3 % (0-0.5); Lymphocytes Absolute Auto 2.28 K/mm3 (0.9-3.2); Lymphocytes Percent Auto 15.9 % (18.3-44.2); Mean Corpuscular HGB Conc 32.7 g/dl (32-36); Mean Corpuscular Hemoglobin 27.1 pg (26-34); Mean Corpuscular Volume 82.9 fl (80-100); Mean Platelet Volume 11.2 fl (7.4-10.4); Monocytes Absolute Auto 0.5 K/mm3 (0.1-0.6); Monocytes Percent Auto 3.8 % (2.6-8.5); Neutrophils Absolute Auto 11.4 K/mm3 (1.3-6.7); Neutrophils Percent Auto 79.1 % (45.5-73.1); Platelet Count Result 241 k/mm3 (150-375); Red Blood Count 5.97 M/mm3 (4.2-5.4); Red Cell Distribution Width 15.9 % (11.5-14.5); White Blood Count 14.4 K/mm3 (4.5-10.0)
[2023-03-15 16:59] LABS: Alanine Aminotransferase 48 U/L (6-35); Albumin Level 4.5 g/dL (3.5-5.1); Alkaline Phosphatase 138 U/L (38-126); Anion Gap 13 mmol/L (8-16); Aspartate Amino Transferase 25 U/L (14-36); Bilirubin,Total 0.5 mg/dL (0.2-1.3); Blood Urea Nitrogen 10 mg/dL (7-17); Calcium 9.4 mg/dL (8.4-10.2); Carbon Dioxide 18 mmol/L (22-30); Chloride 105 mmol/L (98-107); Estimated CRCL calculation 232 ml/min; Estimated Glomerular Filt Rate > 60; Glucose 226 mg/dL (65-110); Lipase 44 U/L (23-300); Sodium 136 mmol/L (137-145)
--- NOTE | 2023-03-15 19:47 | PC.NURSE ---
Pt called for room, no answer
--- NOTE | 2023-03-15 20:29 | PC.NURSE ---
Pt called for room, no answer
== END 2023-03-15 19:47 | disposition left against medical advice (07) ==
LOC: ANHED 20:37
PROVIDERS: Emergency Provider General Practice; PCP Physician Assistant
DX: R11.2 Nausea with vomiting, unspecified (principal)
CPT/HCPCS: 36415; 80053; 82948; 83690; 85025; 99199

== ENCOUNTER 2023-03-17 13:52 | Emergency (ER) | payer OTHER, SELFPAY ==
[2023-03-17 14:04] VITALS: BP 161/100; PULSE 70; RESP 16; TEMP 37.1; O2SAT 100
[2023-03-17 14:23] LABS: Basophils Absolute Auto 0.1 K/mm3 (0.0-0.1); Eosinophils Percent Auto 0.2 % (0-4.4); Hematocrit 48.2 % (37.0-47.0); Immature Granulocyte Absolute 0.04 K/mm3 (0.00-0.031); Immature Granulocyte Percent A 0.3 % (0-0.5); Lymphocytes Absolute Auto 1.69 K/mm3 (0.9-3.2); Lymphocytes Percent Auto 13.4 % (18.3-44.2); Mean Corpuscular HGB Conc 33.2 g/dl (32-36); Mean Corpuscular Hemoglobin 27.1 pg (26-34); Mean Corpuscular Volume 81.6 fl (80-100); Mean Platelet Volume 10.6 fl (7.4-10.4); Monocytes Absolute Auto 0.4 K/mm3 (0.1-0.6); Monocytes Percent Auto 3.3 % (2.6-8.5); Neutrophils Absolute Auto 10.3 K/mm3 (1.3-6.7); Neutrophils Percent Auto 81.8 % (45.5-73.1); Platelet Count Result 227 k/mm3 (150-375); Red Blood Count 5.91 M/mm3 (4.2-5.4); Red Cell Distribution Width 16.5 % (11.5-14.5); White Blood Count 12.6 K/mm3 (4.5-10.0)
[2023-03-17 14:40] LABS: Albumin Level 4.3 g/dL (3.5-5.1); Alkaline Phosphatase 125 U/L (38-126); Anion Gap 12 mmol/L (8-16); Aspartate Amino Transferase 28 U/L (14-36); Bilirubin,Total 0.6 mg/dL (0.2-1.3); Blood Urea Nitrogen 14 mg/dL (7-17); Calcium 9.1 mg/dL (8.4-10.2); Carbon Dioxide 24 mmol/L (22-30); Chloride 98 mmol/L (98-107); Estimated CRCL calculation 230 ml/min; Estimated Glomerular Filt Rate > 60; Glucose 274 mg/dL (65-110); Lipase 30 U/L (23-300); Potassium 3.7 mmol/L (3.4-5.0); Sodium 134 mmol/L (137-145)
[2023-03-17 14:43] LABS: Alanine Aminotransferase 43 U/L (6-35)
[2023-03-17 15:09] LABS: Appearance Urine Clear (Clear); Bilirubin Urine Negative (Negative); Blood Urine Negative (Negative); Color Urine Yellow (Yellow); Glucose Urine UA 3+ mg/dL (Negative); Ketones Urine 1+ mg/dL (Negative); Leukocyte Esterase Ur Negative LEU/UL (Negative); Nitrate Urine Negative (Negative); Protein Urine Negative (Negative); Specific Grav Ur 1.026 (1.001-1.035); Urobilinogen Urine 0.2 mg/dL (<2.0)
[2023-03-17 15:22] LABS: Add Urine Microscopic? NO
[2023-03-17 16:08] VITALS: BP 150/108; BP 165/112; PULSE 60; PULSE 64
[2023-03-17 16:09] VITALS: BP 179/120; PULSE 63
[2023-03-17] MEDS: METOCLOPRAMIDE HCL INJ 10 MG/2 ML VIAL IV PUSH (16:14)
[2023-03-17] MEDS: DICYCLOMINE HCL INJ 20 MG/2 ML VIAL IM (16:14)
[2023-03-17] MEDS: LACTATED RINGERS 1,000 ML 999 ML IV CONT (16:14)
[2023-03-17 16:47] VITALS: BP 134/100
[2023-03-17] MEDS: PANTOPRAZOLE SODIUM IV 40 MG VIAL IV PUSH (16:51)
[2023-03-17] MEDS: KETOROLAC 30 MG/ML VIAL (*BKC) IV PUSH (16:52)
[2023-03-17 17:01] VITALS: BP 163/107
--- NOTE | 2023-03-17 17:01 | ED.NAVMDI ---
HPI - Nausea/Vomiting/Diarrhea General Chief complaint: Nausea/Vomiting/Diarrhea Stated complaint: vomiting/abdominal pain Time Seen by Provider: 03/17/23 15:59 Source: patient, RN notes reviewed and old records reviewed Mode of arrival: ambulatory Limitations: no limitations History of Present Illness HPI Narrative: This is a 32 year old female with history of gastroparesis, IDDM who presents for evaluation of nausea, vomiting and abdominal pain. Patient states she developed nausea, vomiting and epigastric abdominal yesterday. She also reports diarrhea with 1 episode today. She was already seen at [facility] for this issue last night. She reports still having vomiting today. She took her reglan and bentyl at 10 am but she thinks she vomited it up. Related Data Home Medications Medication Instructions Recorded Confirmed amlodipine 10 mg tablet 10 mg PO HS 07/19/21 12/03/22 atorvastatin 20 mg tablet 20 mg PO HS 07/19/21 12/03/22 lisinopril 20 1 tablet PO HS 07/19/21 12/03/22 mg-hydrochlorothiazide 25 mg tablet sertraline 100 mg tablet 200 mg PO HS 07/19/21 12/03/22 insulin glargine 100 unit/mL 10 unit subcut QPM 09/17/22 12/03/22 subcutaneous solution (Lantus U-100 Insulin) aripiprazole 5 mg tablet (Abilify) 5 mg PO DAILY 03/05/23 hydroxyzine pamoate 25 mg capsule 25 mg PO QHS 03/05/23 Allergies Allergy/AdvReac Type Severity Reaction Status Date / Time No Known Allergies Allergy Mild Verified 03/05/23 15:26 Review of Systems Constitutional: Constitutional: Denies weakness Cardiovascular: Cardiovascular: Denies syncope, Denies rapid heart rate, Denies irregular heart rhythm, Denies leg edema and Denies dyspnea Respiratory: Respiratory: Denies chest congestion, Denies hemoptysis, Denies excessive phlegm production and Denies dyspnea Gastrointestinal: Gastrointestinal: Reports abdominal pain, Denies hematochezia, Reports diarrhea, Reports nausea and Reports vomiting Genitourinary: Genitourinary: Denies hematuria and Denies dysuria Musculoskeletal: Musculoskeletal: Denies joint swelling, Denies loss of height and Denies muscle weakness Neurologic: Denies syncope, Denies focal weakness and Denies weakness PMFSH Past Medical History Medical History Abdominal cramping Abnormal complete blood count BRBPR (bright red blood per rectum) Chronic diarrhea Cyclical vomiting with nausea Depression Diabetes Diabetes Diabetic gastroparesis Gastroparesis GERD with esophagitis Hyperlipidemia Hypertension Hypertension Irritable bowel syndrome with diarrhea Marijuana smoker Tobacco abuse Surgical History Surgical History History of section Family History Family History Father Other specified failure in dosage Over dosage from street drug use Mother Other specified failure in dosage Over dosage from street drug use Other Cerebrovascular accident Heart disease Hypertension Social History Social History Smoking packs per day: 1 Smoking cigarettes per day: 20.0 Years smoked: 15 Smoking pack-years: 15.00 Smoking status: Current every day smoker Tobacco type: cigarettes Second hand tobacco smoke exposure: Yes Alcohol intake: former Substance use: current Substance use type: marijuana Other substance usage details: CURRENTLY MARIJUANA-DAILY, Oct 27 2019 last used methamphetamine Last use: 2X weekly Living arrangements: with family Spiritual care concerns: No Exam Const: General: no acute distress and alert Nutritional Appearance: obese Orientation/consciousness: patient oriented x3 Limitations: no limitations HENMT: Head: normal to inspection Throat: posterior oropharynx normal and uvula midline Eyes:
--- NOTE | 2023-03-17 18:56 | PC.NURSE ---
patient left without discharge instructions and left department before development writer could remove IV. contacted patient and she refused to return to verify IV was removed by her. verified patient's address with patient. called [facility] and spoke with dispatch to present to home to verify no IV. advised return call to confirm.
--- NOTE | 2023-03-17 19:53 | PC.NURSE ---
[place] PD called and reported that patient did have IV in her arm when they arrived to her house. IV was removed by PD. Patient did tell press writer on the phone that she removed it prior to leaving and placed it in the sharps container. house rn aware
== END 2023-03-17 18:58 | disposition home or self-care (01) ==
PROVIDERS: Emergency Medicine; Emergency Provider General Practice; PCP Physician Assistant
DX: E11.43 Type 2 diabetes mellitus with diabetic autonomic (poly)neuropathy (principal); K31.84 Gastroparesis; E86.0 Dehydration; I10 Essential (primary) hypertension
CPT/HCPCS: 36415; 80053; 81003; 81025; 83690; 85025; 96361; 96372; 96374; 96375; 99284; C9113; J0500; J1885; J2765; J7120

== ENCOUNTER 2023-05-03 15:33 | Outpatient (CLI) | payer OTHER, SELFPAY ==
[2023-05-04 18:29] LABS: Cholesterol 198 mg/dL (0-200); HDL Direct 38 mg/dL; Triglycerides 369 mg/dL (<150)
[2023-05-04 18:40] LABS: LDL Cholesterol Direct 98 mg/dL
[2023-05-04 19:01] LABS: MALB Creatinine Ratio < 8.6 mg/g (0-30); Microalbumin Urine Random < 6.0 mg/L (0-16.7)
[2023-05-04 19:01] LABS: Thyroid Stimulating Hormone 0.313 uIU/mL (0.465-4.680)
[2023-05-04 20:29] LABS: Free T4 Free Thyroxine 1.54 ng/mL (0.78-2.19)
[2023-05-13 12:02] LABS: Cortisol, Saliva 0.23 mcg/dL
== END 2023-05-03 15:34 | disposition home or self-care (01) ==
LOC: ANHWCLAB 05-13 10:12
PROVIDERS: PCP Physician Assistant; Visit Provider Internal Medicine
DX: R63.5 Abnormal weight gain (principal); E78.5 Hyperlipidemia, unspecified; E11.65 Type 2 diabetes mellitus with hyperglycemia
CPT/HCPCS: 36415; 80061; 82043; 82530; 84439; 84443

== ENCOUNTER 2023-05-04 15:00 | Outpatient (NON) | payer OTHER, SELFPAY ==
[2023-05-13 12:02] LABS: Cortisol, Saliva 0.03 mcg/dL
== END 2023-05-04 15:01 | disposition home or self-care (01) ==
LOC: ANHWCLAB 05-13 10:13
PROVIDERS: PCP Physician Assistant; Visit Provider Internal Medicine
DX: R63.5 Abnormal weight gain (principal); E78.5 Hyperlipidemia, unspecified; E11.65 Type 2 diabetes mellitus with hyperglycemia
CPT/HCPCS: 82530

== ENCOUNTER 2024-03-30 00:24 | Emergency (ER) | payer OTHER, SELFPAY ==
[2024-03-30 00:31] VITALS: BP 129/64; PULSE 98; RESP 18; O2SAT 98
[2024-03-30] MEDS: LACTATED RINGERS 1,000 ML 999 ML IV CONT ×2 (00:51→02:13)
[2024-03-30] MEDS: diphenhydrAMINE HCl INJ 50 MG/ML VIAL 25 MG IV PUSH (00:52)
[2024-03-30] MEDS: METOCLOPRAMIDE HCL INJ 10 MG/2 ML VIAL IV PUSH (00:52)
[2024-03-30 01:01] LABS: Basophils Percent Auto 0.3 % (0.2-1.2); Hematocrit 50.5 % (37.0-47.0); Hemoglobin 17.1 g/dL (12.0-15.0); Immature Granulocyte Absolute 0.04 K/mm3 (0.00-0.031); Immature Granulocyte Percent A 0.4 % (0-0.5); Lymphocytes Percent Auto 13.2 % (18.3-44.2); Mean Corpuscular HGB Conc 33.9 g/dl (32-36); Mean Corpuscular Hemoglobin 27.5 pg (26-34); Mean Corpuscular Volume 81.2 fl (80-100); Mean Platelet Volume 11.3 fl (7.4-10.4); Monocytes Absolute Auto 0.5 K/mm3 (0.1-0.6); Monocytes Percent Auto 5.4 % (2.6-8.5); Neutrophils Absolute Auto 7.4 K/mm3 (1.3-6.7); Neutrophils Percent Auto 80.7 % (45.5-73.1); Platelet Count Result 171 k/mm3 (150-375); Red Blood Count 6.22 M/mm3 (4.2-5.4); White Blood Count 9.1 K/mm3 (4.5-10.0)
--- NOTE | 2024-03-30 01:18 | ED.NAVMDI ---
HPI - Nausea/Vomiting/Diarrhea General Chief complaint: Nausea/Vomiting/Diarrhea Stated complaint: vomiting Time Seen by Provider: 03/30/24 00:34 History of Present Illness HPI Narrative: patient with history of diabetes and gastroparesis presents here with nausea, vomiting, diarrhea for the last day, has runny nose, cough. Unable to keep anything down. Also running out of her medications prescribed by her GI. Related Data Home Medications Medication Instructions Recorded Confirmed amlodipine 10 mg tablet 10 mg PO HS 07/19/21 12/03/22 lisinopril 20 1 tablet PO HS 07/19/21 12/03/22 mg-hydrochlorothiazide 25 mg tablet sertraline 100 mg tablet 200 mg PO HS 07/19/21 12/03/22 aripiprazole 5 mg tablet (Abilify) 5 mg PO DAILY 03/05/23 hydroxyzine pamoate 25 mg capsule 25 mg PO QHS 03/05/23 atorvastatin 20 mg tablet 40 mg PO HS 05/13/23 insulin lispro 100 unit/mL 12 unit subcut TIDWMEAL 06/04/23 subcutaneous pen (Humalog KwikPen (U-100) Insulin) Allergies Allergy/AdvReac Type Severity Reaction Status Date / Time No Known Allergies Allergy Mild Verified 03/30/24 00:37 Review of Systems Review of Systems: All systems reviewed & are unremarkable except as noted in HPI and below PMFSH Past Medical History Medical History Abdominal cramping Abnormal complete blood count Abnormal finding on imaging of liver Abnormal weight gain BRBPR (bright red blood per rectum) Chronic diarrhea Cushings syndrome Cyclical vomiting with nausea Depression Diabetic gastroparesis Gastroparesis GERD with esophagitis Hyperlipidemia Hypertension Irritable bowel syndrome with diarrhea Marijuana smoker Tobacco abuse Type 2 diabetes mellitus Surgical History Surgical History History of section History of cholecystectomy Family History Family History Father Other specified failure in dosage Over dosage from street drug use Depression Hypertension Mother Other specified failure in dosage Over dosage from street drug use Depression Hypertension Other Acute myocardial infarction aunt Cerebrovascular accident aunt Heart disease aunt Grandparent Heart disease Emphysema lung COPD (chronic obstructive pulmonary disease) Social History Social History Smoking packs per day: 1 Smoking cigarettes per day: 20.0 Years smoked: 17 Smoking pack-years: 17.00 Smoking status: Current every day smoker Tobacco type: cigarettes Second hand tobacco smoke exposure: Yes Additional smoking assessment comments: started at age 16 Alcohol intake: never Substance use: current Substance use type: marijuana and methamphetamine Other substance usage details: CURRENTLY MARIJUANA-2x per month, 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 Lack of Transportation: No Lack of Food: Never True Current Housing: I Have Housing Concerned About Future Housing: No Difficulty Paying Gas/Electric Bills: No Difficulty Paying for Meds: No Currently Unemployed: YES Education: Trade/Vocational Certificate Difficulty w/ Childcare or Family Care: No Living arrangements: with family Spiritual care concerns: No Exam Narrative: EXAMINATION OF ORGAN SYSTEMS/BODY AREAS: Constitutional: Vital signs per nursing GENERAL:[No acute distress, non-toxic appearing.] HEAD: Normal with no signs of head trauma. EYES: EOMI, conjunctiva normal ENT: Nasal congestion LUNGS: Nonlabored breathing. occasional coughing HEART: [Regular rate and rhythm] ABD: [Soft], [nontender to palpation] EXT: Normal range of motion SKIN: [No rashes or lesions.] NEURO: [Alert and oriented x 3. No gross focal sensory or strength deficits.] PSYCH: N
[2024-03-30 01:20] LABS: Alanine Aminotransferase 44 U/L (6-35); Albumin Level 4.4 g/dL (3.5-5.1); Alkaline Phosphatase 93 U/L (38-126); Anion Gap 14 mmol/L (4-12); Aspartate Amino Transferase 35 U/L (14-36); Bilirubin,Total 0.9 mg/dL (0.2-1.3); Blood Urea Nitrogen 6 mg/dL (7-17); Calcium 9.2 mg/dL (8.4-10.2); Carbon Dioxide 23 mmol/L (22-30); Chloride 95 mmol/L (98-107); Estimated CRCL calculation 227 ml/min; Estimated Glomerular Filt Rate > 60; Glucose 302 mg/dL (65-110); Lipase 28 U/L (23-300); Sodium 132 mmol/L (137-145)
[2024-03-30 01:30] VITALS: BP 127/82; PULSE 88; RESP 18; O2SAT 97
[2024-03-30 01:49] LABS: Appearance Urine Clear (Clear); Bilirubin Urine Negative (Negative); Blood Urine Negative (Negative); Color Urine Yellow (Yellow); Glucose Urine UA 3+ mg/dL (Negative); Ketones Urine 4+ mg/dL (Negative); Leukocyte Esterase Ur Negative LEU/UL (Negative); Nitrate Urine Negative (Negative); Pregnancy On Board Control Positive; Protein Urine Negative (Negative); Specific Grav Ur > 1.045 (1.001-1.035)
[2024-03-30 01:53] LABS: Urine Pregnancy Test Negative
[2024-03-30 01:56] LABS: Add Urine Microscopic? NO
[2024-03-30] MEDS: INSULIN HUMAN REGULAR (*BKC) 100 UNITS/ML 12 UNITS IV PUSH (02:12)
[2024-03-30 02:36] LABS: Glucose Point of Care 135 mg/dl (65-105)
[2024-03-30 03:22] LABS: Glucose Point of Care 180 mg/dl (65-105)
--- NOTE | 2024-03-30 04:24 | PC.NURSE ---
Pt states she doesnt need to wait for BMP to be drawn and that she wants to go home. This RN was verbally ordered to draw BMP when IV fluids were done. Pt fluids are still going at this time. Dr. Mckeon notified.
== END 2024-03-30 04:34 | disposition home or self-care (01) ==
PROVIDERS: Emergency Provider Emergency Medicine; PCP Emergency Medicine
DX: B34.9 Viral infection, unspecified (principal); E11.9 Type 2 diabetes mellitus without complications; E78.5 Hyperlipidemia, unspecified; I10 Essential (primary) hypertension; F17.210 Nicotine dependence, cigarettes, uncomplicated
CPT/HCPCS: 36415; 80053; 81003; 81025; 82948; 83690; 85025; 96361; 96374; 96375; 99284; J1200; J1815; J2765; J7120

== ENCOUNTER 2024-03-31 08:58 | Emergency (ER) | payer OTHER, SELFPAY ==
[2024-03-31] VITALS (18 sets, daily range): BP systolic 132–172; BP diastolic 82–109; PULSE 52–85; RESP 11–23; TEMP 36.4; O2SAT 97–100
--- NOTE | ~2024-03-31 | XR_ITS ---
Clinical Indication: Diabetic ketoacidosis PA and lateral views of the chest: Comparison: 07/19/2021 Findings: There is a rounded consolidation versus nodule at the left lung base, measuring 3 cm in mary meter. Right lung clear.. Cardiomediastinal silhouette is within normal limits. Bones and soft tissu es are unremarkable. Impression: Rounded consolidation versus nodule left lung base measuring 3 cm in diameter. Consider CT scan to fu rther evaluate now, versus short-term follow-up exam after interval therapy if there is clinical susp icion for pneumonia. Reviewed, dictated and finalized at location . Impression: Rounded consolidation versus nodule left lung base measuring 3 cm in diameter. Consider CT scan to further evaluate now, versus short-term follow-up exam afte r interval therapy if there is clinical suspicion for pneumonia.
--- NOTE | ~2024-03-31 | CT_ITS ---
Clinical Indication: Cough, fever CT Scan of the Chest with Contrast: Technique: Contiguous sections were acquired throughout the chest after intravenous administration of 75 cc of Omnipaque 350. Dose reduction technique was used on this scan by utilizing automated exposu re control and iterative reconstruction technique. The dose-length product (DLP) was 913.24 mGy-cm. COMPARISON: 07/19/2021 Findings: There is no evidence of any significant mediastinal, hilar or axillary lymphadenopathy. There is no f illing defect in the pulmonary arterial tree to suggest pulmonary embolus. There is no evidence of ao rtic dissection or aneurysm. There is no evidence of pleural or pericardial effusion. There is a 2.2 cm rounded masslike lesion, pleural-based at the left lower lobe (axial image 74). The re is apparent minimal pleural thickening and calcification of the left lower lobe pleura just inferi or to this lesion.. Images through the upper abdomen reveal no abnormalities. Impression: 2.2 cm rounded masslike lesion at the left lower lobe, with possible minimal adjacent pleural thicken ing calcification. Diagnostic considerations include rounded pneumonia, rounded atelectasis, or possi shawna soft tissue mass. Recommend follow-up CT scan after interval therapy. Tissue sampling could be co nsidered to establish a histologic diagnosis based on the clinical suspicion for solid lesion. Reviewed, dictated and finalized at [facility]. Impression: 2.2 cm rounded masslike lesion at the left lower lobe, with possible minimal ad jacent pleural thickening calcification. Diagnostic considerations include roun ded pneumonia, rounded atelectasis, or possibly soft tissue mass. Recommend fol low-up CT scan after interval therapy. Tissue sampling could be considered to e stablish a histologic diagnosis based on the clinical suspicion for solid lesio n.
--- NOTE | 2024-03-31 09:09 | ECG_ITS ---
Test Date: 2024-03-31 09:15:34 Measurements Intervals [place] Rate: 52 P: 38 WA: 145 QRS: 49 QRSD: 90 T: 42 QT: 423 QTc: 397 Interpretive Statements SINUS BRADYCARDIA WITH SINUS ARRHYTHMIA BORDERLINE ST-T WAVE ABNORMALITY- ANTEROLAT/INF LEADS BASELINE ARTIFACT- I, II, AVR, V1 BORDERLINE ECG No previous ECG available for comparison Electronically Signed On 03-31-2024 09:25:06 CDT by Mohan Grewal D.O.
[2024-03-31 09:27] LABS: Glucose Point of Care 338 mg/dl (65-105)
[2024-03-31] MEDS: ASPIRIN 81 MG CHEWABLE TABLET 324 MG PO (09:28)
[2024-03-31 09:29] LABS: Basophils Absolute Auto 0.1 K/mm3 (0.0-0.1); Basophils Percent Auto 0.8 % (0.2-1.2); Eosinophils Percent Auto 0.2 % (0-4.4); Hematocrit 51.2 % (37.0-47.0); Immature Granulocyte Absolute 0.03 K/mm3 (0.00-0.031); Immature Granulocyte Percent A 0.3 % (0-0.5); Lymphocytes Absolute Auto 1.22 K/mm3 (0.9-3.2); Lymphocytes Percent Auto 13.3 % (18.3-44.2); Mean Corpuscular HGB Conc 33.2 g/dl (32-36); Mean Corpuscular Hemoglobin 27.1 pg (26-34); Mean Corpuscular Volume 81.7 fl (80-100); Mean Platelet Volume 11.7 fl (7.4-10.4); Monocytes Absolute Auto 0.6 K/mm3 (0.1-0.6); Monocytes Percent Auto 6.2 % (2.6-8.5); Neutrophils Absolute Auto 7.3 K/mm3 (1.3-6.7); Neutrophils Percent Auto 79.2 % (45.5-73.1); Platelet Count Result 174 k/mm3 (150-375); Red Blood Count 6.27 M/mm3 (4.2-5.4); Red Cell Distribution Width 16.6 % (11.5-14.5); White Blood Count 9.2 K/mm3 (4.5-10.0)
[2024-03-31 09:39] LABS: Prothrombin Time 13.4 Seconds (11.1-14.7)
[2024-03-31 09:40] LABS: Partial Thromboplastin Time 22.7 Seconds (22.3-36.8)
[2024-03-31 09:42] LABS: Alanine Aminotransferase 41 U/L (6-35); Albumin Level 4.4 g/dL (3.5-5.1); Alkaline Phosphatase 111 U/L (38-126); Anion Gap 12 mmol/L (4-12); Aspartate Amino Transferase 32 U/L (14-36); Bilirubin,Total 0.9 mg/dL (0.2-1.3); Blood Urea Nitrogen 7 mg/dL (7-17); Calcium 8.8 mg/dL (8.4-10.2); Carbon Dioxide 26 mmol/L (22-30); Chloride 97 mmol/L (98-107); Estimated CRCL calculation 194 ml/min; Estimated Glomerular Filt Rate > 60; Glucose 337 mg/dL (65-110); Lipase 31 U/L (23-300); Potassium 3.3 mmol/L (3.4-5.0); Sodium 135 mmol/L (137-145)
[2024-03-31] MEDS: ONDANSETRON INJ 4 MG/2 ML VIAL 8 MG (09:50)
[2024-03-31] MEDS: SODIUM CHLORIDE 0.9% IV 2,000 ML 999 ML (09:50)
[2024-03-31 09:52] LABS: Troponin I < 0.012 ng/mL (0.000-0.034)
--- NOTE | 2024-03-31 09:58 | ED.GENADULT ---
HPI - General Adult General Chief complaint: Recheck/Abnormal Lab/Rx Stated complaint: dka? sob, cp, n/v/d, abd pain Time Seen by Provider: 03/31/24 09:56 History of Present Illness HPI narrative: 34-year-old female history of IDDM, gastroparesis, and hypertension who presents to the emergency room for evaluation of nausea, vomiting, body aches, productive cough, fever and states that she is in DKA . Patient was seen here yesterday for similar symptoms and diagnosed with viral URI. Related Data Home Medications Medication Instructions Recorded Confirmed amlodipine 10 mg tablet 10 mg PO HS 07/19/21 12/03/22 lisinopril 20 1 tablet PO HS 07/19/21 12/03/22 mg-hydrochlorothiazide 25 mg tablet sertraline 100 mg tablet 200 mg PO HS 07/19/21 12/03/22 aripiprazole 5 mg tablet (Abilify) 5 mg PO DAILY 03/05/23 hydroxyzine pamoate 25 mg capsule 25 mg PO QHS 03/05/23 atorvastatin 20 mg tablet 40 mg PO HS 05/13/23 insulin lispro 100 unit/mL 12 unit subcut TIDWMEAL 06/04/23 subcutaneous pen (Humalog KwikPen (U-100) Insulin) Allergies Allergy/AdvReac Type Severity Reaction Status Date / Time No Known Allergies Allergy Mild Verified 03/31/24 09:24 Review of Systems Review of Systems: ROS unremarkable except for noted in HPI PMFSH Past Medical History Medical History Abdominal cramping Abnormal complete blood count Abnormal finding on imaging of liver Abnormal weight gain BRBPR (bright red blood per rectum) Chronic diarrhea Cushings syndrome Cyclical vomiting with nausea Depression Diabetic gastroparesis Gastroparesis GERD with esophagitis Hyperlipidemia Hypertension Irritable bowel syndrome with diarrhea Marijuana smoker Tobacco abuse Type 2 diabetes mellitus Surgical History Surgical History History of section History of cholecystectomy Family History Family History Father Other specified failure in dosage Over dosage from street drug use Depression Hypertension Mother Other specified failure in dosage Over dosage from street drug use Depression Hypertension Other Acute myocardial infarction aunt Cerebrovascular accident aunt Heart disease aunt Grandparent Heart disease Emphysema lung COPD (chronic obstructive pulmonary disease) Social History Social History Smoking packs per day: 1 Smoking cigarettes per day: 20.0 Years smoked: 17 Smoking pack-years: 17.00 Smoking status: Current every day smoker Tobacco type: cigarettes Second hand tobacco smoke exposure: Yes Additional smoking assessment comments: started at age 16 Alcohol intake: never Substance use: current Substance use type: marijuana and methamphetamine Other substance usage details: CURRENTLY MARIJUANA-2x per month, 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 Lack of Transportation: No Lack of Food: Never True Current Housing: I Have Housing Concerned About Future Housing: No Difficulty Paying Gas/Electric Bills: No Difficulty Paying for Meds: No Currently Unemployed: YES Education: Trade/Vocational Certificate Difficulty w/ Childcare or Family Care: No Living arrangements: with family Spiritual care concerns: No Exam Narrative: GENERAL: chronically ill-appearing, morbidly obese, nontoxic HEAD: Normocephalic, atraumatic. EYES: Conjunctivae normal, PERRLA and EOMI. ENT: External nose normal, Nares clear, no rhinorrhea or epistaxis. Mucous membranes moist. Oropharynx without tonsillar hypertrophy exudate or other lesions. External ears normal, bilateral TMs normal bilaterally NECK: Supple. CHEST: rhonchi at bases HEART: Regular rate and rhythm. No murmur heard. Normal per
[2024-03-31] MEDS: diphenhydrAMINE HCl INJ 50 MG/ML VIAL 25 MG IV PUSH (10:26)
[2024-03-31] MEDS: METOCLOPRAMIDE HCL INJ 10 MG/2 ML VIAL IV PUSH (10:27)
[2024-03-31 10:35] LABS: Alveolar/Arterial O2 Gradient 27.4 mmHg; Fractional Inspired Oxygen 21 %; HCO3 ABG 21.7 mEq/l (22.0-26.0); Oxygen Content ABG 20.1 %vol (16.0-22.0); Oxygen Saturation ABG 97.5 % (95.0-100.0); PCO2 ABG 28.4 mmHg (35.0-45.0); PO2 ABG 88.3 mmHg (80.0-100.0); Total Hemoglobin 16.4 g/dL (12.0-18.0); pH ABG 7.501 (7.350-7.450)
[2024-03-31 10:40] LABS: Device ROOM AIR; Site Drawn LEFT BRACHIAL
[2024-03-31 10:46] LABS: Oxyhemoglobin 87.1 % THb (90.0-100.0)
--- NOTE | 2024-03-31 10:57 | PC.NURSE ---
report given to Inocencia BROWN, all questions answered
== END 2024-03-31 11:26 | disposition home or self-care (01) ==
PROVIDERS: Emergency Medicine; Emergency Provider Nurse Practitioner Family; PCP Emergency Medicine
DX: J06.9 Acute upper respiratory infection, unspecified (principal); E11.43 Type 2 diabetes mellitus with diabetic autonomic (poly)neuropathy; K31.84 Gastroparesis; E78.5 Hyperlipidemia, unspecified; E24.9 Cushing's syndrome, unspecified; I10 Essential (primary) hypertension; K58.0 Irritable bowel syndrome with diarrhea; K21.00 Gastro-esophageal reflux disease with esophagitis, without bleeding; F17.210 Nicotine dependence, cigarettes, uncomplicated; Z90.49 Acquired absence of other specified parts of digestive tract; Z79.899 Other long term (current) drug therapy; Z79.4 Long term (current) use of insulin; R00.1 Bradycardia, unspecified; R94.31 Abnormal electrocardiogram [ECG] [EKG]; R91.1 Solitary pulmonary nodule
CPT/HCPCS: 36415; 36600; 71046; 71260; 80053; 81025; 82805; 82948; 83690; 84484; 85025; 85610; 85730; 93005; 96361; 96374; 96375; 99284; A9270; J1200; J2405; J2765; J7030; Q9967

== ENCOUNTER 2024-04-29 10:43 | Emergency (ER) | payer OTHER, SELFPAY ==
--- NOTE | ~2024-04-29 | CT_ITS ---
EXAMINATION: CT abdomen pelvis w con DATE: 04/29/2024 12:15 INDICATION: Abdominal pain. Nausea and vomiting. TECHNIQUE: Computed tomography (CT) of the abdomen and pelvis was performed with 100 mL Omnipaque 350 intravenous contrast. Automated exposure control and iterative reconstruction technique were employe d. The dose-length product was 1672.18 mGy-cm. COMPARISON: CT abdomen and pelvis 02/14/2023, 07/19/21 FINDINGS: The visualized portions of the lung bases demonstrate mild atelectasis. There is a 2.3 cm n odule in left lower lobe abutting the pleura, stable from 02/14/2023. The heart size is normal. No per icardial effusion. There are numerable hypodense masses in the liver measuring up to 12 mm. There are changes of cholecystectomy. The spleen, pancreas, adrenal glands, and kidneys are normal. There are no dilated loops of bowel. The appendix is normal. There are no pathologically enlarged lymph nodes. There is no free intraperitoneal fluid. There is severe lower lumbar spondylosis. There is mild thora cic spondylosis. There is mild chronic height loss of multiple vertebral bodies. IMPRESSION: 1. 2.3 cm nodule in left lung lower lobe, stable from 02/14/2023 and new from 07/19/2021, likely benig n. Noncontrast low-dose chest CT is recommended in one year. 2. Innumerable liver masses measuring up to 12 mm, likely with increase in number from 02/14/2023. The differential diagnosis includes infection, hepatitis, sarcoid, metastatic disease, and cirrhosis. Reviewed, dictated and finalized at location A. IMPRESSION: 1. 2.3 cm nodule in left lung lower lobe, stable from 02/14/2023 and new from , likely benign. Noncontrast low-dose chest CT is recommended in one ye ar. 2. Innumerable liver masses measuring up to 12 mm, likely with increase in numb er from 02/14/2023. The differential diagnosis includes infection, hepatitis, sa rcoid, metastatic disease, and cirrhosis.
--- NOTE | ~2024-04-29 | XR_ITS ---
Portable chest x-ray Comparison: 03/31/2024 Clinical History: Chest pain Findings: Stable probable left pulmonary nodule projecting over the left heart border region. Right lung clear. Cardiomediastinal silhouette is stable. Bones and soft tissues are unremarkable. Impression: Probable rounded pulmonary nodule opacity projecting over the left heart border. [facility]. Reviewed, dictated and finalized at location . Impression: Probable rounded pulmonary nodule opacity projecting over the left heart border . Please refer to prior CT from 03/31/2024 for further details.
[2024-04-29 10:47] VITALS: PULSE 67; RESP 20; TEMP 36.6; O2SAT 98
--- NOTE | 2024-04-29 10:57 | ECG_ITS ---
Test Date: 2024-04-29 11:24:47 Measurements Intervals [place] Rate: 57 P: 42 WA: 139 QRS: 40 QRSD: 99 T: 40 QT: 423 QTc: 412 Interpretive Statements SINUS BRADYCARDIA WITH SINUS ARRHYTHMIA OTHERWISE NORMAL ELECTROCARDIOGRAM Compared to ECG 03/31/2024 09:15:34 No significant changes Electronically Signed On 04-29-2024 15:04:45 CDT by Cooper Ricketts M.D.
--- NOTE | 2024-04-29 10:57 | ED.ABDPAIN ---
HPI - Abdominal Pain General Chief Complaint: Abdominal Pain Stated Complaint: abdominal pain, vomiting Time Seen by Provider: 04/29/24 10:57 Source: patient Mode of arrival: ambulatory Limitations: no limitations History of Present Illness HPI narrative: 34 years old white female drove herself to the emergency room because of generalized abdominal pain associated with nausea and a lot of vomiting started yesterday. Patient was seen at [facility] last night, and she is telling me that the have done nothing for her at that time. Patient denies any fever, chills, diarrhea. History of section and cholecystectomy. Patient is tobacco dependent, denies alcohol or drug use. Patient denies relieving factors, unable to take her medication or keep it down, History of diabetes, hypertension, hyperlipidemia, acid reflux, and polycystic ovarian disease. Last menstruation 4 years ago Related Data Home Medications Medication Instructions Recorded Confirmed amlodipine 10 mg tablet 10 mg PO HS 07/19/21 12/03/22 lisinopril 20 1 tablet PO HS 07/19/21 12/03/22 mg-hydrochlorothiazide 25 mg tablet sertraline 100 mg tablet 200 mg PO HS 07/19/21 12/03/22 aripiprazole 5 mg tablet (Abilify) 5 mg PO DAILY 03/05/23 hydroxyzine pamoate 25 mg capsule 25 mg PO QHS 03/05/23 atorvastatin 20 mg tablet 40 mg PO HS 05/13/23 insulin lispro 100 unit/mL 12 unit subcut TIDWMEAL 06/04/23 subcutaneous pen (Humalog KwikPen (U-100) Insulin) Allergies Allergy/AdvReac Type Severity Reaction Status Date / Time No Known Allergies Allergy Mild Verified 04/29/24 10:56 Review of Systems Review of Systems: All systems reviewed & are unremarkable except as noted in HPI and below PMFSH Past Medical History Medical History Abdominal cramping Abnormal complete blood count Abnormal finding on imaging of liver Abnormal weight gain BRBPR (bright red blood per rectum) Chronic diarrhea Cushings syndrome Cyclical vomiting with nausea Depression Diabetic gastroparesis Gastroparesis GERD with esophagitis Hyperlipidemia Hypertension Irritable bowel syndrome with diarrhea Marijuana smoker Tobacco abuse Type 2 diabetes mellitus Surgical History Surgical History History of section History of cholecystectomy Family History Family History Father Other specified failure in dosage Over dosage from street drug use Depression Hypertension Mother Other specified failure in dosage Over dosage from street drug use Depression Hypertension Other Acute myocardial infarction aunt Cerebrovascular accident aunt Heart disease aunt Grandparent Heart disease Emphysema lung COPD (chronic obstructive pulmonary disease) Social History Social History Smoking packs per day: 1 Smoking cigarettes per day: 20.0 Years smoked: 17 Smoking pack-years: 17.00 Smoking status: Current every day smoker Tobacco type: cigarettes Second hand tobacco smoke exposure: Yes Additional smoking assessment comments: started at age 16 Alcohol intake: never Substance use: current Substance use type: marijuana and methamphetamine Other substance usage details: CURRENTLY MARIJUANA-2x per month, 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
[2024-04-29 11:08] LABS: Basophils Absolute Auto 0.1 K/mm3 (0.0-0.1); Basophils Percent Auto 0.9 % (0.2-1.2); Eosinophils Absolute Auto 0.1 K/mm3 (0-0.3); Eosinophils Percent Auto 0.9 % (0-4.4); Hematocrit 50.1 % (37.0-47.0); Hemoglobin 16.6 g/dL (12.0-15.0); Immature Granulocyte Absolute 0.03 K/mm3 (0.00-0.031); Immature Granulocyte Percent A 0.3 % (0-0.5); Lymphocytes Absolute Auto 2.46 K/mm3 (0.9-3.2); Lymphocytes Percent Auto 27.2 % (18.3-44.2); Mean Corpuscular HGB Conc 33.1 g/dl (32-36); Mean Corpuscular Hemoglobin 27.1 pg (26-34); Mean Corpuscular Volume 81.9 fl (80-100); Mean Platelet Volume 10.8 fl (7.4-10.4); Monocytes Absolute Auto 0.6 K/mm3 (0.1-0.6); Monocytes Percent Auto 7.1 % (2.6-8.5); Neutrophils Absolute Auto 5.8 K/mm3 (1.3-6.7); Neutrophils Percent Auto 63.6 % (45.5-73.1); Platelet Count Result 180 k/mm3 (150-375); Red Blood Count 6.12 M/mm3 (4.2-5.4); Red Cell Distribution Width 16.4 % (11.5-14.5); White Blood Count 9.1 K/mm3 (4.5-10.0)
[2024-04-29] MEDS: SODIUM CHLORIDE 0.9% IV 1,000 ML 999 ML IV CONT (11:08)
[2024-04-29] MEDS: ONDANSETRON INJ 4 MG/2 ML VIAL IV PUSH (11:08)
[2024-04-29] MEDS: HYDROmorphone HCL INJ (*CRX) 1 MG/ML SYR 0.5 MG IV PUSH (11:13)
[2024-04-29] MEDS: DICYCLOMINE HCL INJ 20 MG/2 ML VIAL IM (11:18)
[2024-04-29 11:23] LABS: Alanine Aminotransferase 34 U/L (6-35); Albumin Level 4.2 g/dL (3.5-5.1); Alkaline Phosphatase 107 U/L (38-126); Anion Gap 12 mmol/L (4-12); Aspartate Amino Transferase 51 U/L (14-36); Bilirubin,Total 0.6 mg/dL (0.2-1.3); Blood Urea Nitrogen 6 mg/dL (7-17); Calcium 9.1 mg/dL (8.4-10.2); Carbon Dioxide 24 mmol/L (22-30); Chloride 99 mmol/L (98-107); Estimated CRCL calculation 184 ml/min; Estimated Glomerular Filt Rate > 60; Glucose 307 mg/dL (65-110); Lipase 45 U/L (23-300); Potassium 3.4 mmol/L (3.4-5.0); Sodium 135 mmol/L (137-145)
[2024-04-29 11:42] LABS: BEDSIDEPREGUCG Negative
[2024-04-29 12:13] LABS: Influenza A QL RT-PCR Negative (Negative); Influenza B QL RT-PCR Negative (Negative); RSV RNA, RT-PCR Negative (Negative); SARS-CoV-2 RNA PCR Negative (Negative)
[2024-04-29 13:00] VITALS: BP 172/99; PULSE 60; RESP 18; O2SAT 97
[2024-04-29] MEDS: diphenhydrAMINE HCl INJ 50 MG/ML VIAL IV PUSH (14:14)
[2024-04-29] MEDS: LORazepam INJ (*CRX) 2 MG/ML VIAL 1 MG IV PUSH (14:16)
[2024-04-29] MEDS: METOCLOPRAMIDE HCL INJ 10 MG/2 ML VIAL IV PUSH (14:21)
[2024-04-29 14:36] VITALS: BP 190/89; PULSE 57; RESP 18; O2SAT 99
[2024-04-29 15:18] VITALS: BP 133/79; PULSE 60; RESP 18; O2SAT 98
== END 2024-04-29 15:31 | disposition home or self-care (01) ==
PROVIDERS: Emergency Provider Emergency Medicine; PCP Internal Medicine
DX: R10.84 Generalized abdominal pain (principal); R91.1 Solitary pulmonary nodule; R16.0 Hepatomegaly, not elsewhere classified; F41.9 Anxiety disorder, unspecified; Z20.822 Contact with and (suspected) exposure to COVID-19; I10 Essential (primary) hypertension; E78.5 Hyperlipidemia, unspecified; E28.2 Polycystic ovarian syndrome; E24.9 Cushing's syndrome, unspecified; E11.43 Type 2 diabetes mellitus with diabetic autonomic (poly)neuropathy; K31.84 Gastroparesis; K21.9 Gastro-esophageal reflux disease without esophagitis; K58.0 Irritable bowel syndrome with diarrhea; F17.210 Nicotine dependence, cigarettes, uncomplicated; Z90.49 Acquired absence of other specified parts of digestive tract; R00.1 Bradycardia, unspecified; Z79.899 Other long term (current) drug therapy; Z79.4 Long term (current) use of insulin
CPT/HCPCS: 36415; 71045; 74177; 80053; 81025; 83690; 85025; 87637; 93005; 96361; 96372; 96374; 96375; 99284; J0500; J1170; J1200; J2060; J2405; J2765; J7030; Q9967

== ENCOUNTER 2024-05-11 13:31 | Emergency (ER) | payer OTHER, SELFPAY ==
--- NOTE | 2024-05-11 13:47 | PC.NURSE ---
Patient stated she was leaving before being seen. Patient states, I dont want to wait for a bed, I am going to [facility] instead. Patient ambulated out of ED without difficulty.
== END 2024-05-11 13:47 | disposition left against medical advice (07) ==
LOC: ANHED 13:50
PROVIDERS: PCP Internal Medicine
DX: Z53.21 Procedure and treatment not carried out due to patient leaving prior to being seen by health care provider (principal)
CPT/HCPCS: 99199

== ENCOUNTER 2024-05-19 12:42 | Emergency (ER) | payer OTHER, SELFPAY ==
[2024-05-19 12:49] VITALS: BP 158/93; PULSE 95; RESP 18; TEMP 36.6; O2SAT 97
[2024-05-19 13:03] LABS: BEDSIDEPREGUCG Negative
[2024-05-19 13:11] LABS: Basophils Absolute Auto 0.1 K/mm3 (0.0-0.1); Basophils Percent Auto 0.9 % (0.2-1.2); Eosinophils Absolute Auto 0.1 K/mm3 (0-0.3); Eosinophils Percent Auto 0.4 % (0-4.4); Hematocrit 50.5 % (37.0-47.0); Hemoglobin 16.8 g/dL (12.0-15.0); Immature Granulocyte Absolute 0.06 K/mm3 (0.00-0.031); Immature Granulocyte Percent A 0.5 % (0-0.5); Lymphocytes Absolute Auto 2.67 K/mm3 (0.9-3.2); Lymphocytes Percent Auto 23.4 % (18.3-44.2); Mean Corpuscular HGB Conc 33.3 g/dl (32-36); Mean Corpuscular Hemoglobin 27.6 pg (26-34); Mean Corpuscular Volume 83.1 fl (80-100); Mean Platelet Volume 11.3 fl (7.4-10.4); Monocytes Absolute Auto 0.5 K/mm3 (0.1-0.6); Monocytes Percent Auto 4.5 % (2.6-8.5); Neutrophils Percent Auto 70.3 % (45.5-73.1); Platelet Count Result 223 k/mm3 (150-375); Red Blood Count 6.08 M/mm3 (4.2-5.4); Red Cell Distribution Width 16.8 % (11.5-14.5); White Blood Count 11.4 K/mm3 (4.5-10.0)
[2024-05-19 13:13] LABS: Add Urine Microscopic? NO; Appearance Urine Clear (Clear); Bilirubin Urine Negative (Negative); Blood Urine Negative (Negative); Color Urine Yellow (Yellow); Glucose Urine UA 3+ mg/dL (Negative); Ketones Urine 1+ mg/dL (Negative); Leukocyte Esterase Ur Negative LEU/UL (Negative); Nitrate Urine Negative (Negative); Protein Urine Negative (Negative); Specific Grav Ur > 1.045 (1.001-1.035); Urobilinogen Urine 0.2 mg/dL (<2.0)
--- NOTE | 2024-05-19 13:39 | ED.ABDPAIN ---
HPI - Abdominal Pain General Chief Complaint: Abdominal Pain Stated Complaint: vomiting, abd pain Time Seen by Provider: 05/19/24 12:51 History of Present Illness HPI narrative: Pt is a 34-year-old female who presents to the ER with intractable vomiting and abdominal pain. She reports she was seen here 2 weeks ago for the same thing. Pt reports she has been scared to give herself insulin shots so she has not been taking her prescribed diabetes medication. She endorses generalized abdominal pain and denies marijuana use. Pt denies chest pain, shortness of breath, or one-sided weakness/numbness/tingling. Related Data Home Medications Medication Instructions Recorded Confirmed amlodipine 10 mg tablet 10 mg PO HS 07/19/21 12/03/22 lisinopril 20 1 tablet PO HS 07/19/21 12/03/22 mg-hydrochlorothiazide 25 mg tablet sertraline 100 mg tablet 200 mg PO HS 07/19/21 12/03/22 aripiprazole 5 mg tablet (Abilify) 5 mg PO DAILY 03/05/23 hydroxyzine pamoate 25 mg capsule 25 mg PO QHS 03/05/23 atorvastatin 20 mg tablet 40 mg PO HS 05/13/23 insulin lispro 100 unit/mL 12 unit subcut TIDWMEAL 06/04/23 subcutaneous pen (Humalog KwikPen (U-100) Insulin) Allergies Allergy/AdvReac Type Severity Reaction Status Date / Time No Known Allergies Allergy Mild Verified 05/19/24 13:01 Review of Systems Review of Systems: All systems reviewed & are unremarkable except as noted in HPI and below PMFSH Past Medical History Medical History Abdominal cramping Abnormal complete blood count Abnormal finding on imaging of liver Abnormal weight gain BRBPR (bright red blood per rectum) Chronic diarrhea Cushings syndrome Cyclical vomiting with nausea Depression Diabetic gastroparesis Gastroparesis GERD with esophagitis Hyperlipidemia Hypertension Irritable bowel syndrome with diarrhea Marijuana smoker Tobacco abuse Type 2 diabetes mellitus Surgical History Surgical History History of section History of cholecystectomy Family History Family History Father Other specified failure in dosage Over dosage from street drug use Depression Hypertension Mother Other specified failure in dosage Over dosage from street drug use Depression Hypertension Other Acute myocardial infarction aunt Cerebrovascular accident aunt Heart disease aunt Grandparent Heart disease Emphysema lung COPD (chronic obstructive pulmonary disease) Social History Social History Smoking packs per day: 1 Smoking cigarettes per day: 20.0 Years smoked: 17 Smoking pack-years: 17.00 Smoking status: Current every day smoker Tobacco type: cigarettes Second hand tobacco smoke exposure: Yes Additional smoking assessment comments: started at age 16 Alcohol intake: never Substance use: current Substance use type: marijuana and methamphetamine Other substance usage details: CURRENTLY MARIJUANA-2x per month, 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 Lack of Transportation: No Lack of Food: Never True Current Housing: I Have Housing Concerned About Future Housing: No Difficulty Paying Gas/Electric Bills: No Difficulty Paying for Meds: No Currently Unemployed: YES Education: Trade/Vocational Certificate Difficulty w/ Childcare or Family Care: No Living arrangements: with family Spiritual care concerns: No Course Vital Signs Vital signs: Vital Signs Temperature 36.6 C 05/19/24 12:49 Pulse Rate 95 05/19/24 12:49 Respiratory Rate 18 05/19/24 12:49 Blood Pressure 158/93 H 05/19/24 12:49 Pulse Oximetry 97 05/19/24 12:49 Oxygen Delivery Room Air 05/19/24 12:49 Temperature 36.6 C 05/19/24 1
[2024-05-19 13:40] LABS: Alanine Aminotransferase 34 U/L (6-35); Anion Gap 13 mmol/L (4-12); Aspartate Amino Transferase 34 U/L (14-36); Bilirubin,Total 0.4 mg/dL (0.2-1.3); Blood Urea Nitrogen 8 mg/dL (7-17); Carbon Dioxide 22 mmol/L (22-30); Chloride 97 mmol/L (98-107); Estimated Glomerular Filt Rate > 60; Glucose 307 mg/dL (65-110); Potassium 3.8 mmol/L (3.4-5.0); Sodium 132 mmol/L (137-145)
[2024-05-19 13:41] LABS: Albumin Level 4.3 g/dL (3.5-5.1); Alkaline Phosphatase 108 U/L (38-126); Lipase 73 U/L (23-300)
[2024-05-19 14:21] LABS: Magnesium 1.9 mg/dL (1.6-2.3); Phosphorus 3.4 mg/dL (2.5-4.5)
[2024-05-19 14:24] LABS: Beta-Hydroxybutyrate/Acetoacetate 0.16 mmol/L (0.02-0.27)
[2024-05-19 14:59] LABS: Hemoglobin A1C 11.6 % (<5.7)
--- NOTE | 2024-05-27 17:11 | ED.ABDPAIN ---
HPI - Abdominal Pain General Chief Complaint: Abdominal Pain Stated Complaint: vomiting, abd pain Time Seen by Provider: 05/19/24 12:51 Related Data Home Medications Medication Instructions Recorded Confirmed amlodipine 10 mg tablet 10 mg PO HS 07/19/21 12/03/22 lisinopril 20 1 tablet PO HS 07/19/21 12/03/22 mg-hydrochlorothiazide 25 mg tablet sertraline 100 mg tablet 200 mg PO HS 07/19/21 12/03/22 aripiprazole 5 mg tablet (Abilify) 5 mg PO DAILY 03/05/23 hydroxyzine pamoate 25 mg capsule 25 mg PO QHS 03/05/23 atorvastatin 20 mg tablet 40 mg PO HS 05/13/23 insulin lispro 100 unit/mL 12 unit subcut TIDWMEAL 06/04/23 subcutaneous pen (Humalog KwikPen (U-100) Insulin) Allergies Allergy/AdvReac Type Severity Reaction Status Date / Time No Known Allergies Allergy Mild Verified 05/19/24 13:01 History of Present Illness GI Data: Abdomen/Pelvis CT 04/29/24 12:24 PT 13.4 Seconds (11.1-14.7) 03/31/24 09:24 TSH 0.313 uIU/mL (0.465-4.680) L 05/04/23 15:58 Hgb 16.8 g/dL (12.0-15.0) H 05/19/24 13:03 Hct 50.5 % (37.0-47.0) H 05/19/24 13:03 PMFSH Past Medical History Medical History Abdominal cramping Abnormal complete blood count Abnormal finding on imaging of liver Abnormal weight gain BRBPR (bright red blood per rectum) Chronic diarrhea Cushings syndrome Cyclical vomiting with nausea Depression Diabetic gastroparesis Gastroparesis GERD with esophagitis Hyperlipidemia Hypertension Irritable bowel syndrome with diarrhea Marijuana smoker Tobacco abuse Type 2 diabetes mellitus Surgical History Surgical History History of section History of cholecystectomy Family History Family History Father Other specified failure in dosage Over dosage from street drug use Depression Hypertension Mother Other specified failure in dosage Over dosage from street drug use Depression Hypertension Other Acute myocardial infarction aunt Cerebrovascular accident aunt Heart disease aunt Grandparent Heart disease Emphysema lung COPD (chronic obstructive pulmonary disease) Social History Social History Smoking packs per day: 1 Smoking cigarettes per day: 20.0 Years smoked: 17 Smoking pack-years: 17.00 Smoking status: Current every day smoker Tobacco type: cigarettes Second hand tobacco smoke exposure: Yes Additional smoking assessment comments: started at age 16 Alcohol intake: never Substance use: current Substance use type: marijuana and methamphetamine Other substance usage details: CURRENTLY MARIJUANA-2x per month, 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 No adenopathy, no masses. RESPIRATORY: Airway patent, respirations nonlabored. Clear to auscultation bilaterally, no rales, rhonchi, wheezing. CARDIOVASCULAR: Regular rate and rhythm without murmurs, rubs, or gallops. Peripheral pulses 2+ and equal bilaterally. ABDOMINAL: Soft, tender in upper quadrants, nondistended, no hepatosplenomegaly. Normoactive BS. MUSCULOSKELETAL: Moves all extremities. Strength/ROM intact without gross deformities. SKIN: Warm, dry, normal color. No rashes. NEURO: A&O X3. Speech clear. Cranial nerves II-
== END 2024-05-19 14:23 | disposition left against medical advice (07) ==
PROVIDERS: Emergency Provider Registered Nurse; PCP Internal Medicine
DX: E11.43 Type 2 diabetes mellitus with diabetic autonomic (poly)neuropathy (principal); K31.84 Gastroparesis; R10.84 Generalized abdominal pain; T38.3X6A Underdosing of insulin and oral hypoglycemic [antidiabetic] drugs, initial encounter; Z91.128 Patient's intentional underdosing of medication regimen for other reason; I10 Essential (primary) hypertension; E24.9 Cushing's syndrome, unspecified; E78.5 Hyperlipidemia, unspecified; K21.00 Gastro-esophageal reflux disease with esophagitis, without bleeding; K58.0 Irritable bowel syndrome with diarrhea; F32.A Depression, unspecified; F17.210 Nicotine dependence, cigarettes, uncomplicated; Z90.49 Acquired absence of other specified parts of digestive tract; Z79.899 Other long term (current) drug therapy; Z79.4 Long term (current) use of insulin
CPT/HCPCS: 36415; 80053; 81003; 81025; 82010; 83036; 83690; 83735; 84100; 85025; 99283

== ENCOUNTER 2024-06-10 07:27 | Outpatient (CLI) | payer OTHER, SELFPAY ==
[2024-05-31 13:50] VITALS: BMI 39.6
--- NOTE | 2024-05-31 13:50 | PC.NURSE ---
Pre Radiology instructions Report to the outpatient zara martín on date _[id number]_ at time _0730_ for procedure Time: _929_ YOU MAY BE MONITORED AT HOSPITAL FOR UP TO 4 HOURS AFTER YOUR PROCEDURE. A visitor will be allowed to accompany the patient into the hospital. You and your visitor will be asked to self-screen and do not enter if you have any COVID symptoms. A mask is OPTIONAL within the hospital. Patients are to have no food or drink 6 hours prior to procedure time Driving will be restricted after the procedure, you must have a person to drive you home. Labs will be drawn in preop area and once reviewed, you will be taken to radiology area for procedure. When the procedure is completed, you will be taken to outpatient where you will be monitored for several hours. You may have one visitor in this area. Other than holding anti-coagulants, patient may take other medication(s) as scheduled. Prior to your appointment date patients are instructed to hold anti-coagulants after discussing with ordering provider to stop. If unable to discontinue anti-coagulants please notify radiologist. ? No aspirin or warfarin (Coumadin) for 7 days prior to the procedure. ? No clopidogrel (Plavix), ticagrelor (Brilinta), prasugrel (Effient) or dabigatran (Pradaxa) for 5 days prior to the procedure. ? No rivaroxaban (Xarelto), apixaban (Eliquis), dipyridamole (Aggrenox or Persantine) or cilostazol (Pletal) for 2 days prior to the procedure. Medications to discontinue per physician: Date to take last dose: Please leave all valuables, including medications, at home the day of procedure. The hospital will not accept responsibility for valuables. Wear comfortable, loose fitting clothing.? Follow any additional instructions given to you from ordering provider. Telephone instructions given to __Fara__and asked if any additional questions and then verbalized understanding. Patient advised to call scheduling provider office or registration scheduling [phone] if any additional questions.
[2024-06-10] VITALS (13 sets, daily range): BP systolic 96–144; BP diastolic 53–89; PULSE 72–98; RESP 14–18; TEMP 36.6; O2SAT 95–100; BMI 39.1
--- NOTE | ~2024-06-10 | US_ITS ---
EXAMINATION: US bx liver DATE: 06/10/2024 10:03 INDICATION: Liver mass. TECHNIQUE: The procedure including the risks, benefits, and alternatives was discussed with the patie nt. Risks discussed included bleeding and infection. The patient understood the risks and agreed to p roceed. The skin overlying the liver was prepped and draped in usual sterile fashion. Anesthetic was administered with 1% lidocaine subcutaneously. An 18 gauge core biopsy needle was then used to obta in 4 core biopsy specimens under continuous sonographic guidance. The entry site was cleaned and dres sed. There were no immediate complications. FINDINGS: Ultrasound images demonstrate the needle in small cystic masses in the liver. There is diff use hepatic steatosis. IMPRESSION: 1. Ultrasound-guided core needle biopsy of small cystic masses in the liver. Reviewed, dictated and finalized at location A.
[2024-06-10 09:06] LABS: INR 1.1; Prothrombin Time 14.2 Seconds (11.1-14.7)
[2024-06-10] MEDS: diphenhydrAMINE HCl INJ 50 MG/ML VIAL 25 MG IV PUSH (10:40)
[2024-06-10] MEDS: LACTATED RINGERS 1,000 ML 30 ML IV CONT (11:00)
[2024-06-10 14:14] LABS: Glucose Point of Care 233 mg/dl (65-105)
== END 2024-06-10 14:22 | disposition home or self-care (01) ==
PROVIDERS: PCP Internal Medicine; Visit Provider Radiology Diagnostic Radiology
PROC: BF45ZZZ Ultrasonography of Liver (ICD-10-PCS; CPT 47000; principal; 2024-06-10 09:30)
DX: Z01.818 Encounter for other preprocedural examination (principal)
CPT/HCPCS: 36415; 47000; 82948; 85610; 88307; J1200; J7120

== ENCOUNTER 2025-06-20 11:09 | Emergency (ER) | payer OTHER, SELFPAY ==
--- OUTSIDE RECORDS SUMMARY | 2008-08-05 04:15 | XMS_ITS | Continuity of Care Document ---
Author Organization [facility] Address [address] [facility] [facility] [address] [place] [address] Phone Care Team Providers Care Destaticizer Feeder Name Role Phone Lou OD, Prieto Unavailable Unavailable Procedures Procedure Date Eye Exam, New Patient Advance Directives Directive Yes / No Effective Date File Name No Information Encounters Encounter Description Practice Location Reason(s) For Visit Diagnoses Date Provider Providers Copied on Encounter [facility], [address], [place], [place], [id number], [place] tel:[phone] [facility] [place] No Information 5-200 8 Lou OD Prieto. [address] [facility] [place] , [address], [place], [address], [place]. tel:[phone] Family History Family Member Type Diagnosis Age At Onset No Information Payers Payer name Insurance type Covered libertarian ID Authoriza tion(s) Medicaid [facility] [id number] Social History Type Description Quantity Date Captured Comments Sex Female Smoking Status No Information Chief Complaint And Reason For Visit No Information Reason For Referral Reason For Referral No Information History Of Present Illness Encounter Date Complaint History Of Prese nt Illness No Information Functional Status Date Functional Assessmen t No Information Instructions Date Instruction Additional Infor mation No Information Assessments Type Assessment Date No Information Patient Care Teams Name Effective Dates (start - stop) Status Members No Information
--- OUTSIDE RECORDS SUMMARY | 2008-08-05 04:15 | XMS_ITS | Continuity of Care Document ---
Author Organization [facility] Address [address] [facility] [address] [place] [address] Phone Care Team Providers Care Woodworking Belt Sander Name Role Phone Lou OD, Prieto Unavailable Unavailable Procedures Procedure Date Eye Exam, New Patient Advance Directives Directive Yes / No Effective Date File Name No Information Encounters Encounter Description Practice Location Reason(s) For Visit Diagnoses Date Provider Providers Copied on Encounter [facility], [address], [place], [place], [id number], [place] tel:[phone] [facility] [place] No Information 5-200 8 Lou OD Prieto. [address] [facility] [address] [place] , [address], [place], [address], [place]. tel:[phone] Family History Family Member Type Diagnosis Age At Onset No Information Payers Payer name Insurance type Covered constitution party ID Authoriza tion(s) Medicaid [facility] [id number] Social History Type Description Quantity Date Captured [...]
--- OUTSIDE RECORDS SUMMARY | 2025-06-12 04:40 | XMS_ITS ---
Author Organization [facility] Address [address] [place] [address] Care Team Providers Care Carriage Feeder Name Role Phone David Reveles Primary Care Provider [phone] [phone] REASON FOR VISIT 4 Weeks (Reason: APPT AND A1C) Social History Sex Assigned At : Social History Observation Description Sex Assigned At Female Encounters Encounter Location Date Provider Diagnosis [address] [address] 06/12/2025 David Reveles Plan Of Treatment No Information Progress Notes * Michael LILLYB:[birth year] (35 yo F)Acc No.[id number]:06/12/2025 UNLOCKED PROGRESS NOTE Progress Notes Patient: Fara LAWSON Provider: Max Reveles :1990 A ge:35 Y S ex:Female Date:06/12/2025 Address:[address] [place], [place] [id number] Subjective: * Chief Complaints: * 1 . 4 Weeks (Reason: APPT AND A1C). * Medical History: Objective: * Vitals: Assessment: Plan: * Treatment: * * Electronic signature of Jemima Reveles , [id number] on 06/20/2025 at 11:43 AM CDT Sign off status: Pending * Provider: Max Reveles Date: 0 06/12/2025 Generated for Bianca bettencourt/Edy/eTransmitting on: 0 06/20/2025 11:43 AM CDT
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
[2025-06-20 11:23] VITALS: BP 118/74; PULSE 89; RESP 22; TEMP 36.8; O2SAT 99
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
--- OUTSIDE RECORDS SUMMARY | 2025-06-20 11:43 | XMS_ITS | Encounter Summary ---
Author Organization [facility] Address [address] [facility] [address] [place] [address] Phone Care Team Providers Care Job Development Specialist Name Role Phone No, Physician Primary Care Provider [phone] Encounter Details Date Type Department Care Team (Late st Contact Info) Description 12/02/2023 [facility] Minimally Invasive Surgery [address], [place] [address] Christiano Flores MD [address] [facility] [id number] [place] [address] Social History Tobacco Use Types Packs/Day Years Used Date Smoking Tobacco: Never Assessed Personal Safety Answer Date Recorded Have you ever been in or are you currently in a harmful physical or emotional relationship or is someone making you feel afraid or unsafe? Denies 03/18/2023 Comments No Sex and Gender Information Value Date Recorded Sex Assigned at Not on file Legal Sex Female 6:30 PM [employer] Gender Identity Not on file Sexual Orientation Not on file documented as of this encounter Plan of Treatment Upcoming Encounters Date Type Department Care Team (Latest Contact Info) Description 07/19/2025 8:15 AM CDT Hospital Encounter [facility] Operating Room [address] [place] [address] Christiano Flores MD [address] [facility] [id number] [place] [address] 07/19/2025 8:15 AM CDT - 07/19/2025 11:55 AM CDT Surgery [facility] Operating Room [id number] [place] [address] [place] [address] Christiano Flores MD [address] [facility] [id number] [place] [address] LAPAROSCOPIC GASTRIC BYPASS Scheduled Procedures Name Priority Associated Diagnoses Date/Ti me LAPAROSCOPIC GASTRIC BYPASS Morbid obesity (HCC) 07/19/2025 8:15 AM CDT documented as of this encounter Visit Diagnoses Not on filedocumented in this encounter Care Teams Job Development Specialist Relationship Specialty Start Date End Date No, Physician PCP - General 05/05/21 documented as of this encounter
--- OUTSIDE RECORDS SUMMARY | 2025-06-20 11:43 | XMS_ITS | Patient Health Record ---
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 Name Role Phone David Reveles Primary Care Provider Karon Bains [phone] Allergies Allergen (clinical drug ingredient) Drug/Non Drug Allergy documented on EMR Reaction Allergy Type Onset Date Status Adhesive rash Allergy 01/20/2023 Active Results Component Value Reference Range Notes Cortisol Reviewed date:01/12/2025 09:32:19 AM Interpretation: Performing Lab:[facility], [address] [facility], Phone - [phone], Director - [facility] Notes/Report: Cortisol 2.7 6.2-19.4 ug/dL Please Note: The reference interval and flagging for this test is for an AM collection. If this is a PM collection please use: Cortisol PM: 2.3-11.9 Vitamin B12 and Folate Reviewed date:01/12/2025 09:32:20 AM Interpretation: Performing Lab:[facility], [address] [facility], Phone - [phone], Director - [facility] Notes/Report: Vitamin B12 152 450-6248 pg/mL Folate (Folic Acid), Serum 6.0 >3.0 ng/mL A serum folate concentration of less than 3.1 ng/mL is considered to represent clinical deficiency. Iron and TIBC* Reviewed date:01/12/2025 09:32:20 AM Interpretation: Performing Lab:[facility], [address] [facility], Phone - [phone], Director - [facility] Notes/Report: Iron Bind.Cap.(TIBC) 424 250-450 ug/dL UIBC 338 131-425 ug/dL Iron 86 27-159 ug/dL Iron Saturation 20 15-55 % Hemoglobin A1c* Reviewed date:01/12/2025 09:32:20 AM Interpretation: Performing Lab:[facility] [address] [place], [place] [address]ox [facility], Phone - [phone], Director - [facility] Notes/Report: Hemoglobin A1c 10.1 4.8-5.6 % . Prediabetes: 5.7 - 6.4 Diabetes: >6.4 Glycemic control for adults with diabetes: <7.0 CBC With Differential/Platel et* Reviewed date:01/12/2025 09:32:20 AM Interpretation: Performing Lab:[facility], [address] [place], [place] [address] [facility], Phone - [phone], Director - [facility] Notes/Report: WBC 12.5 3.4-10.8 x10E3/uL RBC 6.51 3.77-5.28 x10E6/uL Hemoglobin 17.7 11.1-15.9 g/dL Hematocrit 55.1 34.0-46.6 % MCV 85 79-97 fL MCH 27.2 26.6-33.0 pg MCHC 32.1 31.5-35.7 g/dL RDW 15.1 11.7-15.4 % Platelets 150 150-450 x10E3/uL Neutrophils 68 Not Estab. % Lymphs 25 Not Estab. % Monocytes 5 Not Estab. % Eos 1 Not Estab. % Basos 1 Not Estab. % Neutrophils (Absolute) 8.6 1.4-7.0 x10E3/uL Lymphs (Absolute) 3.1 0.7-3.1 x10E3/uL Monocytes(Absolute) 0.6 0.1-0.9 x10E3/uL Eos (Absolute) 0.1 0.0-0.4 x10E3/uL Baso (Absolute) 0.1 0.0-0.2 x10E3/uL Immature Granulocytes 0 Not Estab. % Immature Grans (Abs) 0.0 0.0-0.1 x10E3/uL Lipid Panel* Reviewed date:01/12/2025 09:32:20 AM Interpretation: Performing Lab:[facility], [address] [facility], Phone - [phone], Director - [facility] Notes/Report: Cholesterol, Total 193 100-199 mg/dL Triglycerides 177 0-149 mg/dL HDL Cholesterol 65 >39 mg/dL VLDL Cholesterol Benjy 30 5-40 mg/dL LDL Chol Calc (NIH) 98 0-99 mg/dL CMP 14 Comprehensive Metabol ic Panel* Reviewed date:01/12/2025 09:32:20 AM Interpretation: Performing Lab:[facility], [address] [facility], Phone - [phone], Director - [facility] Notes/Report: Glucose 211 70-99 mg/dL BUN 16 6-20 mg/dL Creatinine 0.62 0.57-1.00 mg/dL eGFR 121 >59 mL/min/1.73 BUN/Creatinine Ratio 26 9-23 Sodium 136 134-144 mmol/L Potassium 4.6 3.5-5.2 mmol/L Chloride 96 96-106 mmol/L Carbon Dioxide, Total 17 20-29 mmol/L Calcium 10.2 8.7-10.2 mg/dL Protein, Total 7.7 6.0-8.5 g/dL Albumin 4.5 3.9-4.9 g/dL Globulin, Total 3.2 1.5-4.5 g/dL Bilirubin, Total 0.3 0.0-1.2 mg/dL Alkaline Phosphatase 163 44-121 IU/L AST (SGOT) 16 0-40 IU/L ALT (SGPT) 34 0-32 IU/L TSH Rfx on Abnormal to Free T4 Reviewed date:01/12/2025 09:32:20 AM Interpretation: Performing Lab:[facility], [address] [facility], Phone - [phone], Director - [facility] Notes/Report: TSH 0.573 0.450-4.500 uIU/mL Hemoglobin A1c CLIA Waived Reviewed date:01/04/2025 11:59:13 AM Interpretation: Performing Lab: Notes/Report: Hemoglobin A1c 10.0 4.0 - 6.4 % Hemoglobin A1c CLIA Waived Reviewed date:06/07/2025 11:34:50 AM Interpretation: Performing Lab: Notes/Report: Hemoglobin A1c 9.6 4.0 - 6.4 % Hemoglobin A1c CLIA Waived Reviewed date:06/20/2024 10:52:20 AM Interpretation: Performing Lab: Notes/Report: Hemoglobin A1c 11.6 4.0 - 6.4 % Hemoglobin A1c CLIA Waived Reviewed date:05/17/2025 09:11:23 AM Interpretation: Performing Lab: Notes/Report: Hemoglobin A1c 10.9 4.0 - 6.4 % Hemoglobin A1c CLIA Waived Reviewed date:02/01/2025 03:03:39 PM Interpretation: Performing Lab: Notes/Report: Hemoglobin A1c 9.8 4.0 - 6.4 % Reason For Referral No Information Medications Medication SIG (Take, Route, Frequency, Duration) Notes Start Date End Date Status SITagliptin Phosphate 100 MG 1 tablet Orally Once a day; Duration: 90 days 02/16/2024 Active Sertraline HCl 100 MG 2 tablets (200 mg) Orally Once a day; Duration: 10 days Active diazePAM 5 MG 1 tablet as needed for anxiety Orally 3 times a day; Duration: 30 days Client is on a benzodiazepine taper, reducing diazepam qty 5-10% per month. 06/20/2025 Active buPROPion HCl ER (XL) 300 MG 1 tablet in the morning Orally Once a day; Duration: 30 days Active Vraylar 3 MG 1 capsule Orally Once a day; Duration: 10 days Active Sertraline HCl 200 MG 1 capsule Orally Once a day; Duration: 30 days Active Omeprazole 40 MG 1 capsule 1/2 to 1 hour before morning meal Orally Once a day; Duration: 30 days 03/20/2025 Active HumaLOG KwikPen 100 UNIT/ML 2 UNITS Subcutaneous three times a day BEFORE EACH MEAL 01/04/2025 Active Promethazine HCl 12.5 MG/10ML 5 mL as needed Orally every 6 hours; Duration: 30 days As needed nausea stopping hydroxyzine 03/16/2025 Active Ibuprofen 100 MG/5ML 10 mL Orally every 6 hours; Duration: 15 days As needed pain 12/09/2024 Active Cariprazine HCl 3 MG 1 capsule Orally Once a day; Duration: 30 days Active buPROPion HCl ER (XL) 300 MG 1 tablet in the morning Orally Once a day; Duration: 10 days Active Famotidine 40 MG 1 tablet at bedtime Orally Once a day; Duration: 30 days 03/20/2025 Active Lantus SoloStar 100 UNIT/ML 50 UNITS Subcutaneous once a day 05/16/2024 Active Atorvastatin Calcium 40 MG 1 tablet Orally Once a day; Duration: 90 days Active Jardiance 10 MG 1 tablet Orally Once a day; Duration: 90 days 06/20/2024 Active amLODIPine Besylate 10 MG 1 tablet Orally Once a day; Duration: 90 days Active Lisinopril-hydroCHL OROthiazide 20-25 MG 1 tablet Orally Once a day; Duration: 90 days 02/25/2024 Active Social History Tobacco Use: Social History Observation Description Date Details (start date - stop date) Never Smoker NA - NA Sex Assigned At : Social History Observation Description Sex Assigned At Female Tobacco Control (Standard) Question Answer Notes Tobacco use: Nonsmoker Section Notes: ADDITIONAL SOCIAL HISTORY 01/20/2023: FAMILY PSYCHIATRIC HISTORY FAMILY MEMBER and MENTAL ILLNESS: Reports depression and anxiety in family, not no hospitalizations. PAST PSYCHIATRIC HISTORY PAST DIAGNOSIS: anxiety, depression. PAST PSYCHIATRIC MEDICATIONS: Zoloft , lorazepam, wellbutrin, alprazalom. INPATIENT PSYCHIATRIC HOSPITALIZATIONS: None. SUICIDE ATTEMPTS: None. PERSONAL HISTORY DESCRIPTION OF CHILDHOOD: Happy, lots of friends. HISTORY OF PHYSICAL, VERBAL, or SEXUAL ABUSE: None. MARITAL HISTORY: Single. CHILDREN: 1 son. EDUCATION: Finished one semester of college. LEGAL HISTORY: Hx of possesion charges, none currently. HOLINESS AFFILIATION: none. ADDITIONAL SOCIAL HISTORY 01/20/2023: FAMILY PSYCHIATRIC HISTORY FAMILY MEMBER and MENTAL ILLNESS: Reports depression and anxiety in family, not no hospitalizations. PAST PSYCHIATRIC HISTORY PAST DIAGNOSIS: anxiety, depression. PAST PSYCHIATRIC MEDICATIONS: Zoloft , lorazepam, wellbutrin, alprazalom. INPATIENT PSYCHIATRIC HOSPITALIZATIONS: None. SUICIDE ATTEMPTS: None. PERSONAL HISTORY DESCRIPTION OF CHILDHOOD: Happy, lots of friends. HISTORY OF PHYSICAL, VERBAL, or SEXUAL ABUSE: None. MARITAL HISTORY: Single. CHILDREN: 1 son. EDUCATION: Finished one semester of college. LEGAL HISTORY: Hx of possesion charges, none currently. HOLINESS AFFILIATION: none. - - - - - - - [...] HISTORY: Hx of possesion charges, none currently. HOLINESS AFFILIATION: none. - - - - - - - [...] HISTORY: Hx of possesion charges, none currently. HOLINESS AFFILIATION: none. - - - - - - - [...] HISTORY: Hx of possesion charges, none currently. HOLINESS AFFILIATION: none. - - - - - - - [...] HISTORY: Hx of possesion charges, none currently. HOLINESS AFFILIATION: none. - - - - - - - [...] HISTORY: Hx of possesion charges, none currently. HOLINESS AFFILIATION: none. - - - - - - - [...] HISTORY: Hx of possesion charges, none currently. HOLINESS AFFILIATION: none. - - - - - - - [...] HISTORY: Hx of possesion charges, none currently. HOLINESS AFFILIATION: none. - - - - - - - [...] HISTORY: Hx of possesion charges, none currently. HOLINESS AFFILIATION: none. - - - - - - - [...] HISTORY: Hx of possesion charges, none currently. HOLINESS AFFILIATION: none. ADDITIONAL SOCIAL HISTORY 01/20/2023: FAMILY PSYCHIATRIC HISTORY FAMILY MEMBER and MENTAL ILLNESS: Reports depression and anxiety in family, not no hospitalizations. PAST PSYCHIATRIC HISTORY PAST DIAGNOSIS: anxiety, depression. PAST PSYCHIATRIC MEDICATIONS: Zoloft , lorazepam, wellbutrin, alprazalom. INPATIENT PSYCHIATRIC HOSPITALIZATIONS: None. SUICIDE ATTEMPTS: None. PERSONAL HISTORY DESCRIPTION OF CHILDHOOD: Happy, lots of friends. HISTORY OF PHYSICAL, VERBAL, or SEXUAL ABUSE: None. MARITAL HISTORY: Single. CHILDREN: 1 son. EDUCATION: Finished one semester of college. LEGAL HISTORY: Hx of possesion charges, none currently. HOLINESS AFFILIATION: none. FAMILY PSYCHIATRIC HISTORY FAMILY MEMBER and MENTAL ILLNESS: Reports depression and anxiety in family, not no hospitalizations. PAST PSYCHIATRIC HISTORY PAST DIAGNOSIS: anxiety, depression. PAST PSYCHIATRIC MEDICATIONS: Zoloft , lorazepam, wellbutrin, alprazalom. INPATIENT PSYCHIATRIC HOSPITALIZATIONS: None. SUICIDE ATTEMPTS: None. DESCRIPTION OF CHILDHOOD: Happy, lots of friends. HISTORY OF PHYSICAL, VERBAL, or SEXUAL ABUSE: None. MARITAL HISTORY: Single. CHILDREN: 1 son. EDUCATION: Finished one semester of college. LEGAL HISTORY: Hx of possesion charges, none currently. HOLINESS AFFILIATION: none. FAMILY PSYCHIATRIC HISTORY FAMILY MEMBER and MENTAL ILLNESS: Reports depression and anxiety in family, not no hospitalizations. PAST PSYCHIATRIC HISTORY PAST DIAGNOSIS: anxiety, depression. PAST PSYCHIATRIC MEDICATIONS: Zoloft , lorazepam, wellbutrin, alprazalom. INPATIENT PSYCHIATRIC HOSPITALIZATIONS: None. SUICIDE ATTEMPTS: None. DESCRIPTION OF CHILDHOOD: Happy, lots of friends. HISTORY OF PHYSICAL, VERBAL, or SEXUAL ABUSE: None. MARITAL HISTORY: Single. CHILDREN: 1 son. EDUCATION: Finished one semester of college. LEGAL HISTORY: Hx of possesion charges, none currently. HOLINESS AFFILIATION: none. ADDITIONAL SOCIAL HISTORY 01/20/2023: FAMILY PSYCHIATRIC HISTORY FAMILY MEMBER and MENTAL ILLNESS: Reports depression and anxiety in family, not no hospitalizations. PAST PSYCHIATRIC HISTORY PAST DIAGNOSIS: anxiety, depression. PAST PSYCHIATRIC MEDICATIONS: Zoloft , lorazepam, wellbutrin, alprazalom. INPATIENT PSYCHIATRIC HOSPITALIZATIONS: None. SUICIDE ATTEMPTS: None. PERSONAL HISTORY DESCRIPTION OF CHILDHOOD: Happy, lots of friends. HISTORY OF PHYSICAL, VERBAL, or SEXUAL ABUSE: None. MARITAL HISTORY: Single. CHILDREN: 1 son. EDUCATION: Finished one semester of college. LEGAL HISTORY: Hx of possesion charges, none currently. HOLINESS AFFILIATION: none. ADDITIONAL SOCIAL HISTORY 01/20/2023: FAMILY PSYCHIATRIC HISTORY FAMILY MEMBER and MENTAL ILLNESS: Reports depression and anxiety in family, not no hospitalizations. PAST PSYCHIATRIC HISTORY PAST DIAGNOSIS: anxiety, depression. PAST PSYCHIATRIC MEDICATIONS: Zoloft , lorazepam, wellbutrin, alprazalom. INPATIENT PSYCHIATRIC HOSPITALIZATIONS: None. SUICIDE ATTEMPTS: None. PERSONAL HISTORY DESCRIPTION OF CHILDHOOD: Happy, lots of friends. HISTORY OF PHYSICAL, VERBAL, or SEXUAL ABUSE: None. MARITAL HISTORY: Single. CHILDREN: 1 son. EDUCATION: Finished one semester of college. LEGAL HISTORY: Hx of possesion charges, none currently. HOLINESS AFFILIATION: none. ADDITIONAL SOCIAL HISTORY 01/20/2023: FAMILY PSYCHIATRIC HISTORY FAMILY MEMBER and MENTAL ILLNESS: Reports depression and anxiety in family, not no hospitalizations. PAST PSYCHIATRIC HISTORY PAST DIAGNOSIS: anxiety, depression. PAST PSYCHIATRIC MEDICATIONS: Zoloft , lorazepam, wellbutrin, alprazalom. INPATIENT PSYCHIATRIC HOSPITALIZATIONS: None. SUICIDE ATTEMPTS: None. PERSONAL HISTORY DESCRIPTION OF CHILDHOOD: Happy, lots of friends. HISTORY OF PHYSICAL, VERBAL, or SEXUAL ABUSE: None. MARITAL HISTORY: Single. CHILDREN: 1 son. EDUCATION: Finished one semester of college. LEGAL HISTORY: Hx of possesion charges, none currently. HOLINESS AFFILIATION: none. ADDITIONAL SOCIAL HISTORY 01/20/2023: FAMILY PSYCHIATRIC HISTORY FAMILY MEMBER and MENTAL ILLNESS: Reports depression and anxiety in family, not no hospitalizations. PAST PSYCHIATRIC HISTORY PAST DIAGNOSIS: anxiety, depression. PAST PSYCHIATRIC MEDICATIONS: Zoloft , lorazepam, wellbutrin, alprazalom. INPATIENT PSYCHIATRIC HOSPITALIZATIONS: None. SUICIDE ATTEMPTS: None. PERSONAL HISTORY DESCRIPTION OF CHILDHOOD: Happy, lots of friends. HISTORY OF PHYSICAL, VERBAL, or SEXUAL ABUSE: None. MARITAL HISTORY: Single. CHILDREN: 1 son. EDUCATION: Finished one semester of college. LEGAL HISTORY: Hx of possesion charges, none currently. HOLINESS AFFILIATION: none. ADDITIONAL SOCIAL HISTORY 01/20/2023: FAMILY PSYCHIATRIC HISTORY FAMILY MEMBER and MENTAL ILLNESS: Reports depression and anxiety in family, not no hospitalizations. PAST PSYCHIATRIC HISTORY PAST DIAGNOSIS: anxiety, depression. PAST PSYCHIATRIC MEDICATIONS: Zoloft , lorazepam, wellbutrin, alprazalom. INPATIENT PSYCHIATRIC HOSPITALIZATIONS: None. SUICIDE ATTEMPTS: None. PERSONAL HISTORY DESCRIPTION OF CHILDHOOD: Happy, lots of friends. HISTORY OF PHYSICAL, VERBAL, or SEXUAL ABUSE: None. MARITAL HISTORY: Single. CHILDREN: 1 son. EDUCATION: Finished one semester of college. LEGAL HISTORY: Hx of possesion charges, none currently. HOLINESS AFFILIATION: none. ADDITIONAL SOCIAL HISTORY 01/20/2023: FAMILY PSYCHIATRIC HISTORY FAMILY MEMBER and MENTAL ILLNESS: Reports depression and anxiety in family, not no hospitalizations. PAST PSYCHIATRIC HISTORY PAST DIAGNOSIS: anxiety, depression. PAST PSYCHIATRIC MEDICATIONS: Zoloft , lorazepam, wellbutrin, alprazalom. INPATIENT PSYCHIATRIC HOSPITALIZATIONS: None. SUICIDE ATTEMPTS: None. PERSONAL HISTORY DESCRIPTION OF CHILDHOOD: Happy, lots of friends. HISTORY OF PHYSICAL, VERBAL, or SEXUAL ABUSE: None. MARITAL HISTORY: Single. CHILDREN: 1 son. EDUCATION: Finished one semester of college. LEGAL HISTORY: Hx of possesion charges, none currently. HOLINESS AFFILIATION: none. ADDITIONAL SOCIAL HISTORY 01/20/2023: FAMILY PSYCHIATRIC HISTORY FAMILY MEMBER and MENTAL ILLNESS: Reports depression and anxiety in family, not no hospitalizations. PAST PSYCHIATRIC HISTORY PAST DIAGNOSIS: anxiety, depression. PAST PSYCHIATRIC MEDICATIONS: Zoloft , lorazepam, wellbutrin, alprazalom. INPATIENT PSYCHIATRIC HOSPITALIZATIONS: None. SUICIDE ATTEMPTS: None. PERSONAL HISTORY DESCRIPTION OF CHILDHOOD: Happy, lots of friends. HISTORY OF PHYSICAL, VERBAL, or SEXUAL ABUSE: None. MARITAL HISTORY: Single. CHILDREN: 1 son. EDUCATION: Finished one semester of college. LEGAL HISTORY: Hx of possesion charges, none currently. HOLINESS AFFILIATION: none. ADDITIONAL SOCIAL HISTORY 01/20/2023: FAMILY PSYCHIATRIC HISTORY FAMILY MEMBER and MENTAL ILLNESS: Reports depression and anxiety in family, not no hospitalizations. PAST PSYCHIATRIC HISTORY PAST DIAGNOSIS: anxiety, depression. PAST PSYCHIATRIC MEDICATIONS: Zoloft , lorazepam, wellbutrin, alprazalom. INPATIENT PSYCHIATRIC HOSPITALIZATIONS: None. SUICIDE ATTEMPTS: None. PERSONAL HISTORY DESCRIPTION OF CHILDHOOD: Happy, lots of friends. HISTORY OF PHYSICAL, VERBAL, or SEXUAL ABUSE: None. MARITAL HISTORY: Single. CHILDREN: 1 son. EDUCATION: Finished one semester of college. LEGAL HISTORY: Hx of possesion charges, none currently. HOLINESS AFFILIATION: none. ADDITIONAL SOCIAL HISTORY 01/20/2023: FAMILY PSYCHIATRIC HISTORY FAMILY MEMBER and MENTAL ILLNESS: Reports depression and anxiety in family, not no hospitalizations. PAST PSYCHIATRIC HISTORY PAST DIAGNOSIS: anxiety, depression. PAST PSYCHIATRIC MEDICATIONS: Zoloft , lorazepam, wellbutrin, alprazalom. INPATIENT PSYCHIATRIC HOSPITALIZATIONS: None. SUICIDE ATTEMPTS: None. PERSONAL HISTORY DESCRIPTION OF CHILDHOOD: Happy, lots of friends. HISTORY OF PHYSICAL, VERBAL, or SEXUAL ABUSE: None. MARITAL HISTORY: Single. CHILDREN: 1 son. EDUCATION: Finished one semester of college. LEGAL HISTORY: Hx of possesion charges, none currently. HOLINESS AFFILIATION: none. ADDITIONAL SOCIAL HISTORY 01/20/2023: FAMILY PSYCHIATRIC HISTORY FAMILY MEMBER and MENTAL ILLNESS: Reports depression and anxiety in family, not no hospitalizations. PAST PSYCHIATRIC HISTORY PAST DIAGNOSIS: anxiety, depression. PAST PSYCHIATRIC MEDICATIONS: Zoloft , lorazepam, wellbutrin, alprazalom. INPATIENT PSYCHIATRIC HOSPITALIZATIONS: None. SUICIDE ATTEMPTS: None. PERSONAL HISTORY DESCRIPTION OF CHILDHOOD: Happy, lots of friends. HISTORY OF PHYSICAL, VERBAL, or SEXUAL ABUSE: None. MARITAL HISTORY: Single. CHILDREN: 1 son. EDUCATION: Finished one semester of college. LEGAL HISTORY: Hx of possesion charges, none currently. HOLINESS AFFILIATION: none. ADDITIONAL SOCIAL HISTORY 01/20/2023: FAMILY PSYCHIATRIC HISTORY FAMILY MEMBER and MENTAL ILLNESS: Reports depression and anxiety in family, not no hospitalizations. PAST PSYCHIATRIC HISTORY PAST DIAGNOSIS: anxiety, depression. PAST PSYCHIATRIC MEDICATIONS: Zoloft , lorazepam, wellbutrin, alprazalom. INPATIENT PSYCHIATRIC HOSPITALIZATIONS: None. SUICIDE ATTEMPTS: None. PERSONAL HISTORY DESCRIPTION OF CHILDHOOD: Happy, lots of friends. HISTORY OF PHYSICAL, VERBAL, or SEXUAL ABUSE: None. MARITAL HISTORY: Single. CHILDREN: 1 son. EDUCATION: Finished one semester of college. LEGAL HISTORY: Hx of possesion charges, none currently. HOLINESS AFFILIATION: none. - - - - - - - [...] HISTORY: Hx of possesion charges, none currently. HOLINESS AFFILIATION: none. - - - - - - - [...] HISTORY: Hx of possesion charges, none currently. HOLINESS AFFILIATION: none. - - - - - - - [...] HISTORY: Hx of possesion charges, none currently. HOLINESS AFFILIATION: none. - - - - - - - [...] HISTORY: Hx of possesion charges, none currently. HOLINESS AFFILIATION: none. - - - - - - - [...] HISTORY: Hx of possesion charges, none currently. HOLINESS AFFILIATION: none. - - - - - - - [...] HISTORY: Hx of possesion charges, none currently. HOLINESS AFFILIATION: none. - - - - - - - [...] HISTORY: Hx of possesion charges, none currently. HOLINESS AFFILIATION: none. - - - - - - - [...] HISTORY: Hx of possesion charges, none currently. HOLINESS AFFILIATION: none. - - - - - - - [...] HISTORY: Hx of possesion charges, none currently. HOLINESS AFFILIATION: none. - - - - - - - [...] HISTORY: Hx of possesion charges, none currently. HOLINESS AFFILIATION: none. - - - - - - - [...] HISTORY: Hx of possesion charges, none currently. HOLINESS AFFILIATION: none. Problems Problem Type SNOMED Code ICD Code Onset Dates Problem Status W/U Status Risk Notes Problem Tobacco user (837338908) Nicotine dependence, unspecified, uncomplicated (F17.200) Active confirmed Problem Gastroparesis (428317105) Gastroparesis (K31.84) Active confirmed Problem Secondary amenorrhea (982897018) Secondary amenorrhea (N91.1) 09/21/19 Active confirmed Problem Hypertension (10106626) Hypertension (I10) 09/21/19 Active confirmed Problem Hyperlipidemia (94027752) Hyperlipidemia (E78.5) 09/21/19 Active confirmed Problem Morbid obesity (694691320) Morbid obesity (E66.01) Active confirmed Problem Generalized anxiety disorder (12799246) MELISSA (generalized anxiety disorder) (F41.1) Active confirmed Problem Panic disorder (271849144) Panic disorder (F41.0) Active confirmed Problem Depressive disorder (82480191) Depressive disorder (F32.9) Active confirmed Problem Adjustment disorder (78401773) Adjustment disorder (F43.20) Active confirmed Problem Gastritis (5662073) Gastritis (K29.70) Active confirmed Problem Sedative abuse (02306740) Benzodiazepine abuse (F13.10) Active confirmed Problem Overweight (154661563) Over weight (E66.3) Active confirmed Problem Polycystic ovary syndrome (disorder) (711434307) PCOS (polycystic ovarian syndrome) (E28.2) Active confirmed Problem Diabetes mellitus (43156335) Diabetes mellitus (E11.9) 09/21/19 Active confirmed Problem Solitary nodule of lung (319938650) Lung nodule < 6cm on CT (R91.1) Active confirmed Problem Liver mass (935162986) Liver mass (R16.0) Active confirmed Vital Signs Heart Rate 70 /min 06/07/2025 Temperature 97.7 degrees Fahrenheit 06/07/2025 Respiratory Rate 16 /min 06/07/2025 Blood pressure diastolic 78 mm Hg 06/07/2025 Oximetry 98 % 06/07/2025 Height 68 in in 06/07/2025 Blood pressure systolic 122 mm Hg 06/07/2025 Weight 291.2 lbs lbs 06/07/2025 BMI 44.27 kg/m2 06/07/2025 Encounters Encounter Location Date Provider Diagnosis [address] [place] [address] 06/29/2024 Karon Bains [address] [address] 07/04/2024 Karon Bains Depressive disorder F32.9 and Panic disorder F41.[address] [place] [address] 07/12/2024 David Reveles [address] [address] 08/26/2024 David Reveles [address] [address] 10/13/2024 Karon Bains Panic disorder F41.[address] [place] [address] 10/19/2024 David Reveles Viral URI with cough J06.[address] [place] [address] 12/13/2024 David Reveles Viral URI with cough J06.[address] [place] [address] 12/15/2024 David Reveles [address] [place] [address] 01/09/2025 David Reveles [address] [place] [address] 03/09/2025 David Reveles Viral URI with cough J06.9 [facility] [address] [place] [address] 03/20/2025 David Reveles Gastritis K29.[address] [place] [address] 04/05/2025 Karon Bains [facility] [address] [place] [address] 05/15/2025 Karon Bains Benzodiazepine abuse F13.[address] [address] 06/08/2025 David Reveles Epigastric abdominal pain R10.13 and Diabetes mellitus E11.[address] [address] 06/12/2025 David Reveles Diabetes mellitus E11.[address] [address] 01/05/2025 David Reveles Diabetes mellitus E11.9 ; Fatigue R53.83 and Epigastric abdominal pain R10.[address] [address] 06/20/2024 David Reveles Diabetes mellitus E11.9 and Gastroparesis K31.[address] [address] 09/06/2024 David Reveles Diabetes mellitus E11.9 ; Gastroparesis K31.84 ; Viral URI with cough J06.9 and Hypertension I10 [facility] [address] [place] [address] 12/09/2024 David Reveles Diabetes mellitus E11.9 ; Gastroparesis K31.84 ; PCOS (polycystic ovarian syndrome) E28.2 ; Epigastric abdominal pain R10.13 ; Fatigue R53.83 and Nicotine dependence, unspecified, uncomplicated F17.[address] [address] 01/04/2025 David Reveles Diabetes mellitus E11.9 ; Gastroparesis K31.84 and Viral URI with cough J06.[address] [address] 02/01/2025 David Reveles Diabetes mellitus E11.9 ; Gastroparesis K31.84 and Morbid obesity E66.[address] [address] 03/16/2025 David Reveles Gastroparesis K31.84 ; Gastritis K29.70 ; Hypertension I10 ; Morbid obesity E66.01 and Diabetes mellitus E11.[address] [address] 05/17/2025 David Reveles Diabetes mellitus E11.9 ; Hypertension I10 ; Gastroparesis K31.84 ; Hyperlipidemia E78.5 and Over weight E66.[address] [address] 06/07/2025 David Reveles Diabetes mellitus E11.9 and Over weight E66.[address] [address] 07/06/2024 Karon Sabblut Depressive disorder F32.9 ; Panic disorder F41.0 ; MELISSA (generalized anxiety disorder) F41.1 ; Nicotine dependence, unspecified, uncomplicated F17.200 and Medication management Z79.[address] [address] 07/20/2024 Karon Sabblut Depressive disorder F32.9 ; Panic disorder F41.0 ; MELISSA (generalized anxiety disorder) F41.1 ; Nicotine dependence, unspecified, uncomplicated F17.200 and Medication management Z79.[address] [address] 09/05/2024 Karon Sabblut Depressive disorder F32.9 ; Panic disorder F41.0 ; MELISSA (generalized anxiety disorder) F41.1 ; Nicotine dependence, unspecified, uncomplicated F17.200 and Medication management Z79.[address] [address] 02/02/2025 Karon Sabblut Depressive disorder F32.9 ; MELISSA (generalized anxiety disorder) F41.1 ; Benzodiazepine abuse F13.10 ; Panic disorder F41.0 ; Nicotine dependence, unspecified, uncomplicated F17.200 and Medication management Z79.[address] [address] 03/02/2025 Karon Sabblut Depressive disorder F32.9 ; MELISSA (generalized anxiety disorder) F41.1 ; Benzodiazepine abuse F13.10 ; Panic disorder F41.0 ; Nicotine dependence, unspecified, uncomplicated F17.200 and Medication management Z79.[address] [address] 01/10/2025 Karon Sabblut Depressive disorder F32.9 ; MELISSA (generalized anxiety disorder) F41.1 ; Benzodiazepine abuse F13.10 ; Panic disorder F41.0 ; Nicotine dependence, unspecified, uncomplicated F17.200 and Medication management Z79.[address] [address] 10/24/2024 Karon Sabblut Depressive disorder F32.9 ; Panic disorder F41.0 ; MELISSA (generalized anxiety disorder) F41.1 ; Nicotine dependence, unspecified, uncomplicated F17.200 and Medication management Z79.[address] [address] 06/20/2025 Karon Sabblut Depressive disorder F32.9 ; MELISSA (generalized anxiety disorder) F41.1 ; Benzodiazepine abuse F13.10 ; Panic disorder F41.0 ; Nicotine dependence, unspecified, uncomplicated F17.200 and Medication management Z79.[address] [address] 05/23/2025 Karon Sabblut Depressive disorder F32.9 ; MELISSA (generalized anxiety disorder) F41.1 ; Benzodiazepine abuse F13.10 ; Panic disorder F41.0 ; Nicotine dependence, unspecified, uncomplicated F17.200 and Medication management Z79.[address] [address] 04/11/2025 Karon Sabblut Depressive disorder F32.9 ; MELISSA (generalized anxiety disorder) F41.1 ; Benzodiazepine abuse F13.10 ; Panic disorder F41.0 ; Nicotine dependence, unspecified, uncomplicated F17.200 and Medication management Z79.[address] [place] [address] 12/13/2024 Karon Garzaelvis Depressive disorder F32.9 ; MELISSA (generalized anxiety disorder) F41.1 ; Benzodiazepine abuse F13.10 ; Panic disorder F41.0 ; Nicotine dependence, unspecified, uncomplicated F17.200 and Medication management Z79.899 Assessments Encounter Date Diagnosis (ICD Code) Assessment Notes Treatment Notes Treatment Clinical Notes Section Notes 12/09/2024 Diabetes mellitus (ICD-10 - E11.9) ordered dexcom 7 sensor and rug measurer 01/04/2025 Diabetes mellitus (ICD-10 - E11.9) 12/13/2024 Viral URI with cough (ICD-10 - J06.9) 01/04/2025 Gastroparesis (ICD-10 - K31.84) AWAITING SURGERY. 01/05/2025 Diabetes mellitus (ICD-10 - E11.9) 01/10/2025 Depressive disorder (ICD-10 - F32.9) Continue psychotherapy as scheduled. 02/01/2025 Gastroparesis (ICD-10 - K31.84) 02/01/2025 Diabetes mellitus (ICD-10 - E11.9) TO REMAIN OFF WORK UNTIL AFTER HEALED FROM GASTRIC SURGERY. REDUCE HUMULOG TO 2 U TID AC FOR NEXT TRIAL, 2 U PRIOR TO LARGEST MEAL OF THE DAY IF SHE HAS SIDE EFFECTS. SHE UNDERSTANDS THE RATIONALE. 02/02/2025 Depressive disorder (ICD-10 - F32.9) Continue psychotherapy as scheduled. 03/09/2025 Viral URI with cough (ICD-10 - J06.9) 03/16/2025 Gastroparesis (ICD-10 - K31.84) H PYLORI BREATH TEST NEGATIVE 03/02/2025 Depressive disorder (ICD-10 - F32.9) Continue psychotherapy as scheduled. 03/16/2025 Gastritis (ICD-10 - K29.70) 03/20/2025 Gastritis (ICD-10 - K29.70) 04/11/2025 Depressive disorder (ICD-10 - F32.9) Psychotherapy recommended. Client wishes to defer at this time. 05/15/2025 Benzodiazepine abuse (ICD-10 - F13.10) 05/17/2025 Hypertension (ICD-10 - I10) 05/17/2025 Diabetes mellitus (ICD-10 - E11.9) 05/23/2025 Depressive disorder (ICD-10 - F32.9) Psychotherapy recommended. Client wishes to defer at this time. 06/08/2025 Epigastric abdominal pain (ICD-10 - R10.13) 06/12/2025 Diabetes mellitus (ICD-10 - E11.9) 06/07/2025 Over weight (ICD-10 - E66.3) 06/07/2025 Diabetes mellitus (ICD-10 - E11.9) IMPROVING A1C. 07/19/2025 FOR BARIATRIC. CALL IN [employer] 7 SENSOR TO GEN. 06/20/2025 Depressive disorder (ICD-10 - F32.9) Psychotherapy recommended. Client wishes to defer at this time. 12/13/2024 Depressive disorder (ICD-10 - F32.9) Continue psychotherapy as scheduled. 10/24/2024 Depressive disorder (ICD-10 - F32.9) Psychotherapy recommended. Client wishes to defer at this time. 12/09/2024 Gastroparesis (ICD-10 - K31.84) 07/06/2024 Depressive disorder (ICD-10 - F32.9) 07/20/2024 Depressive disorder (ICD-10 - F32.9) 09/05/2024 Depressive disorder (ICD-10 - F32.9) 09/06/2024 Gastroparesis (ICD-10 - K31.84) 09/06/2024 Diabetes mellitus (ICD-10 - E11.9) 10/13/2024 Panic disorder (ICD-10 - F41.0) 10/19/2024 Viral URI with cough (ICD-10 - J06.9) 06/20/2024 Gastroparesis (ICD-10 - K31.84) 06/20/2024 Diabetes mellitus (ICD-10 - E11.9) 07/04/2024 Depressive disorder (ICD-10 - F32.9) 07/04/2024 Panic disorder (ICD-10 - F41.0) 09/06/2024 Viral URI with cough (ICD-10 - J06.9) 07/20/2024 Panic disorder (ICD-10 - F41.0) [place] - no concerns 07/06/2024 Panic disorder (ICD-10 - F41.0) [place]06[place]2024 - no concerns 10/24/2024 Panic disorder (ICD-10 - F41.0) [place]24[place]2024 - no concerns. Psychotherapy recommended. Client wishes to defer at this time. 12/09/2024 PCOS (polycystic ovarian syndrome) (ICD-10 - E28.2) 09/05/2024 Panic disorder (ICD-10 - F41.0) [place] 09[place]05/2024 - no concerns 12/13/2024 MELISSA (generalized anxiety disorder) (ICD-10 - F41.1) Continue psychotherapy as scheduled. Take prescribed medications as indicated. 06/08/2025 Diabetes mellitus (ICD-10 - E11.9) 06/20/2025 MELISSA (generalized anxiety disorder) (ICD-10 - F41.1) - Psychotherapy recommended. Client wishes to defer at this time. - Take prescribed medications as indicated. - Explore grounding techniques and relaxation exercises to manage anxiety. 05/23/2025 MELISSA (generalized anxiety disorder) (ICD-10 - F41.1) - Psychotherapy recommended. Client wishes to defer at this time. - Take prescribed medications as indicated. - Explore grounding techniques and relaxation exercises to manage anxiety. 05/17/2025 Gastroparesis (ICD-10 - K31.84) 04/11/2025 MELISSA (generalized anxiety disorder) (ICD-10 - F41.1) - Psychotherapy recommended. Client wishes to defer at this time. - Take prescribed medications as indicated. - Explore grounding techniques and relaxation exercises to manage anxiety. 03/16/2025 Hypertension (ICD-10 - I10) 02/02/2025 MELISSA (generalized anxiety disorder) (ICD-10 - F41.1) Continue psychotherapy as scheduled. Take prescribed medications as indicated. 03/02/2025 MELISSA (generalized anxiety disorder) (ICD-10 - F41.1) Continue psychotherapy as scheduled. Take prescribed medications as indicated. 02/01/2025 Morbid obesity (ICD-10 - E66.01) 01/10/2025 MELISSA (generalized anxiety disorder) (ICD-10 - F41.1) Continue psychotherapy as scheduled. Take prescribed medications as indicated. 01/04/2025 Viral URI with cough (ICD-10 - J06.9) POST-VIRAL COUGH NOW. IMPROVING. 01/05/2025 Fatigue (ICD-10 - R53.83) 01/05/2025 Epigastric abdominal pain (ICD-10 - R10.13) 01/10/2025 Benzodiazepine abuse (ICD-10 - F13.10) [place] - no concerns. CLIENT IS WEANING OFF [...] taper schedule, and is agreeable to plan. 02/02/2025 Benzodiazepine abuse (ICD-10 - F13.10) [place]02/2025 - no concerns. CLIENT IS WEANING OFF [...] taper schedule, and is agreeable to plan. 03/16/2025 Morbid obesity (ICD-10 - E66.01) 03/02/2025 Benzodiazepine abuse (ICD-10 - F13.10) [place] 03[place]02/2025 - no concerns. CLIENT IS WEANING OFF [...] taper schedule, and is agreeable to plan. 04/11/2025 Benzodiazepine abuse (ICD-10 - F13.10) [place] 04[place]11/2025 - no concerns. CLIENT IS WEANING OFF [...] taper schedule, and is agreeable to plan. 05/23/2025 Benzodiazepine abuse (ICD-10 - F13.10) [place]23/2025 - no concerns. CLIENT IS WEANING OFF [...] taper schedule, and is agreeable to plan. 05/17/2025 Hyperlipidemia (ICD-10 - E78.5) 06/20/2025 Benzodiazepine abuse (ICD-10 - F13.10) [place] taper schedule, and is agreeable to plan. 12/13/2024 Benzodiazepine abuse (ICD-10 - F13.10) [place]13/2024 - no concerns. CLIENT IS WEANING OFF [...] taper schedule, and is agreeable to plan. 12/09/2024 Epigastric abdominal pain (ICD-10 - R10.13) 10/24/2024 MELISSA (generalized anxiety disorder) (ICD-10 - F41.1) Continue sertraline as indicated. Psychotherapy recommended. Client wishes to defer at this time. 07/20/2024 MELISSA (generalized anxiety disorder) (ICD-10 - F41.1) Continue sertraline as indicated. 09/05/2024 MELISSA (generalized anxiety disorder) (ICD-10 - F41.1) Continue sertraline as indicated. 09/06/2024 Hypertension (ICD-10 - I10) 07/06/2024 MELISSA (generalized anxiety disorder) (ICD-10 - F41.1) Continue sertraline as indicated. 07/06/2024 Nicotine dependence, unspecified, uncomplicated (ICD-10 - F17.200) 10/24/2024 Nicotine dependence, unspecified, uncomplicated (ICD-10 - F17.200) Take bupropion as prescribed. 09/05/2024 Nicotine dependence, unspecified, uncomplicated (ICD-10 - F17.200) 07/20/2024 Nicotine dependence, unspecified, uncomplicated (ICD-10 - F17.200) 12/13/2024 Panic disorder (ICD-10 - F41.0) Take diazepam as prescribed. Continue psychotherapy as scheduled. 06/20/2025 Panic disorder (ICD-10 - F41.0) Take diazepam as prescribed. 05/17/2025 Over weight (ICD-10 - E66.3) 05/23/2025 Panic disorder (ICD-10 - F41.0) Take diazepam as prescribed. 04/11/2025 Panic disorder (ICD-10 - F41.0) Take diazepam as prescribed. 03/16/2025 Diabetes mellitus (ICD-10 - E11.9) FOLLOWS WITH ENDOCRINOLOGY, STABLE PER REPORT. 03/02/2025 Panic disorder (ICD-10 - F41.0) Take diazepam as prescribed. Continue psychotherapy as scheduled. 02/02/2025 Panic disorder (ICD-10 - F41.0) Take diazepam as prescribed. Continue psychotherapy as scheduled. 01/10/2025 Panic disorder (ICD-10 - F41.0) Take diazepam as prescribed. Continue psychotherapy as scheduled. 02/02/2025 Nicotine dependence, unspecified, uncomplicated (ICD-10 - F17.200) Take bupropion as prescribed. 01/10/2025 Nicotine dependence, unspecified, uncomplicated (ICD-10 - F17.200) Take bupropion as prescribed. 03/02/2025 Nicotine dependence, unspecified, uncomplicated (ICD-10 - F17.200) Take bupropion as prescribed. 04/11/2025 Nicotine dependence, unspecified, uncomplicated (ICD-10 - F17.200) Take bupropion as prescribed. 05/23/2025 Nicotine dependence, unspecified, uncomplicated (ICD-10 - F17.200) Take bupropion as prescribed. 06/20/2025 Nicotine dependence, unspecified, uncomplicated (ICD-10 - F17.200) Take bupropion as prescribed. 12/13/2024 Nicotine dependence, unspecified, uncomplicated (ICD-10 - F17.200) Take bupropion as prescribed. 12/09/2024 Fatigue (ICD-10 - R53.83) 07/20/2024 Medication management (ICD-10 - Z79.899) May self-administer medications or be administered own oral medications per [facility] protocols. Provided informed consent with understanding of side effects, adverse effects, risks and benefits as well as alternative treatments as previously discussed and with the above recommended medications & other aspects of the treatment program. Agrees to return sooner if symptoms worsen or suicidal or homicidal ideations occur. 09/05/2024 Medication management (ICD-10 - Z79.899) May self-administer medications or be administered own oral medications per [facility] protocols. Provided informed consent with understanding of side effects, adverse effects, risks and benefits as well as alternative treatments as previously discussed and with the above recommended medications & other aspects of the treatment program. Agrees to return sooner if symptoms worsen or suicidal or homicidal ideations occur. 10/24/2024 Medication management (ICD-10 - Z79.899) May self-administer medications or be administered own oral medications per [facility] protocols. Provided informed consent with understanding of side effects, adverse effects, risks and benefits as well as alternative treatments as previously discussed and with the above recommended medications & other aspects of the treatment program. Agrees to return sooner if symptoms worsen or suicidal or homicidal ideations occur. 07/06/2024 Medication management (ICD-10 - Z79.899) May self-administer medications or be administered own oral medications per [facility] protocols. Provided informed consent with understanding of side effects, adverse effects, risks and benefits as well as alternative treatments as previously discussed and with the above recommended medications & other aspects of the treatment program. Agrees to return sooner if symptoms worsen or suicidal or homicidal ideations occur. 12/09/2024 Nicotine dependence, unspecified, uncomplicated (ICD-10 - F17.200) 12/13/2024 Medication management (ICD-10 - Z79.899) May self-administer medications or be administered own oral medications per [facility] protocols. Provided informed consent with understanding of side effects, adverse effects, risks and benefits as well as alternative treatments as previously discussed and with the above recommended medications & other aspects of the treatment program. Agrees to return sooner if symptoms worsen or suicidal or homicidal ideations occur. 06/20/2025 Medication management (ICD-10 - Z79.899) May self-administer medications or be administered own oral medications per [facility] protocols. Provided informed consent with understanding of side effects, adverse effects, risks and benefits as well as alternative treatments as previously discussed and with the above recommended medications & other aspects of the treatment program. Agrees to return sooner if symptoms worsen or suicidal or homicidal ideations occur. 05/23/2025 Medication management (ICD-10 - Z79.899) May self-administer medications or be administered own oral medications per [facility] protocols. Provided informed consent with understanding of side effects, adverse effects, risks and benefits as well as alternative treatments as previously discussed and with the above recommended medications & other aspects of the treatment program. Agrees to return sooner if symptoms worsen or suicidal or homicidal ideations occur. 04/11/2025 Medication management (ICD-10 - Z79.899) May self-administer medications or be administered own oral medications per [facility] protocols. Provided informed consent with understanding of side effects, adverse effects, risks and benefits as well as alternative treatments as previously discussed and with the above recommended medications & other aspects of the treatment program. Agrees to return sooner if symptoms worsen or suicidal or homicidal ideations occur. 03/02/2025 Medication management (ICD-10 - Z79.899) May self-administer medications or be administered own oral medications per [facility] protocols. Provided informed consent with understanding of side effects, adverse effects, risks and benefits as well as alternative treatments as previously discussed and with the above recommended medications & other aspects of the treatment program. Agrees to return sooner if symptoms worsen or suicidal or homicidal ideations occur. 01/10/2025 Medication management (ICD-10 - Z79.899) May self-administer medications or be administered own oral medications per [facility] protocols. Provided informed consent with understanding of side effects, adverse effects, risks and benefits as well as alternative treatments as previously discussed and with the above recommended medications & other aspects of the treatment program. Agrees to return sooner if symptoms worsen or suicidal or homicidal ideations occur. 02/02/2025 Medication management (ICD-10 - Z79.899) May self-administer medications or be administered own oral medications per [facility] protocols. Provided informed consent with understanding of side effects, adverse effects, risks and benefits as well as alternative treatments as previously discussed and with the above recommended medications & other aspects of the treatment program. Agrees to return sooner if symptoms worsen or suicidal or homicidal ideations occur. 01/04/2025 Other [place]/O ISSUES Plan Of Treatment Future Test Test Name Order Date Ultrasound : Biopsy Liver 05/03/2024 Insurance Providers Payer Name Payer Address Payer Phone Subscriber Number Group Number Insured Name Patient Relationship to Insured Coverage Start Date Coverage End Date [facility] Attn Claims Department [address] [place] [address] [id number] Fara Lilly Self - patient is the insured 3 [employer] Attn Claims Department [address] [place] [address] [id number] Fara Lilly Self - patient is the insured 3 Medical (General) History Medical History History ICD Code gastroparesis DM II HTN obesity Surgical History Surgery Date(Month/Year) cholecystectomy 08/2021 05/12/2020 Hospitalization History Reason Date(Month/Year) DKA 12/2024 multiple for gastroparesis cholecystectomy 08/2021 Childbirth 04/2020
--- OUTSIDE RECORDS SUMMARY | 2025-06-20 11:43 | XMS_ITS | Encounter Summary ---
Author Organization [facility] Address [address] [place] [address] Phone Care Team Providers Care Produce Runner Name Role Phone No, Physician Primary Care Provider [phone] Reason for Visit * Reason Onset Date Comments dexcom g7 06/16/2025 Prior Auth 06/16/2025 Encounter Details Date Type Department Care Team (Late st Contact Info) Description 06/16/2025 Telephone [facility] Medicine Endocrinology Metabolism and Lipid [address] [facility] [address] [place] [address] Flaca Tena RN dexcom g7; Prior Auth Social History Tobacco Use Types Packs/Day Years Used Date Smoking Tobacco: Former Cigarettes Q uit: 12/2024 Smokeless Tobacco: Never Alcohol Use Standard Drinks/Week Comments Not Currently 0 (1 standard drink = 0.6 oz pur e alcohol) AUDIT-C Answer Date Recorded Q1: How often do you have a drink containing alcohol? Never 03/02/2025 Q2: How many drinks containi ng alcohol do you have on a typical day when you are drinking? Patient does not drink Q3: How often do you have si x or more drinks on one occasion? Never 03/02/2025 Personal Safety Answer Date Recorded Have you ever been in or are you currently in a harmful physical or emotional relationship or is someone making you feel afraid or unsafe? Denies 03/02/2025 Comments No Sex and Gender Information Value Date Recorded Sex Assigned at Not on file Legal Sex Female 6:30 PM [employer] Gender Identity Not on file Sexual Orientation Not on file documented as of this encounter Miscellaneous Notes * Telephone Encounter - Yanira David RMA - 06/19/2025 5:29 AM CDT ([facility]: [id number]) Quinton Gong /MONI# [id number] Dexcom G7 Sensor Status: Approved Effective dates:06/19/2025-06/19/2026 * Telephone Encounter - Flaca Tena RN - 06/16/2025 4:18 PM CDT Prior auth dexcom g7 - send response to [facility] [id number] documented in this encounter Plan of Treatment Upcoming Encounters Date Type Department Care Team (Latest Contact Info) Description 07/19/2025 8:15 AM CDT Hospital Encounter [facility] Operating Room [address] [place] [address] Christiano Flores MD [address] [facility] [id number] [place] [address] 07/19/2025 8:15 AM CDT - 07/19/2025 11:55 AM CDT Surgery [facility] Operating Room [address] [place] [address] Christiano Flores MD [address] [facility] [id number] [place] [address] [facility] GASTRIC BYPASS Scheduled Procedures Name Priority Associated Diagnoses Date/Ti me LAPAROSCOPIC GASTRIC BYPASS Morbid obesity (HCC) 07/19/2025 8:15 AM CDT documented as of this encounter Visit Diagnoses Not on filedocumented in this encounter Care Teams Produce Runner Relationship Specialty Start Date End Date No, Physician PCP - General 05/05/21 documented as of this encounter
--- OUTSIDE RECORDS SUMMARY | 2025-06-20 11:43 | XMS_ITS | Clinical Summary ---
Author Organization [facility] [place] Address [address] [place] [address] Care Team Providers Care Press Clippings Cutter And Paster Name Role Phone Lena Bains PA-C Primary Care Provide r Source Comments [facility],non-owned Affiliates and Associated Physician Practices is amultiple site organization consisting of ambulatory clinics and hospital sitesin [place], [place], [place] and [place]. This disclosure is being madepursuant to the Care Everywhere program and may not contain all information available regarding this patient. Last updated 18.[facility] [place] Allergies No known active allergies Medications * Be aware that medications may not be up to date on this document. Alwaysverify current medications with the patient. sertraline (ZOLOFT) 100 MG tablet 02/08/20 20 Active Blood Glucose Monitoring Suppl (ONETOUCH VERIO FLEX SYSTEM) w/Device KITIndications:G estational diabetes mellitus (GDM), antepartum, gestational diabetes method of control unspecified (HCC) Use 1 kit as directed 1 kit 04/12/20 20 Active blood glucose (ONETOUCH VERIO) test stripIndications :Gestational diabetes mellitus (GDM), antepartum, gestational diabetes method of control unspecified (HCC) Use to check blood sugar 4 times daily. Fasting and one hour after each meal. 150 strip 5 04/12/20 Active ONETOUCH DELICA LANCETS 33G MISCIndications: Gestational diabetes mellitus (GDM), antepartum, gestational diabetes method of control unspecified ([facility]) Use 1 Each as directed To check blood sugar 4 times daily 200 Each 1 04/12/20 20 Active famotidine (PEPCID) 20 MG tablet Take 1 tablet by mouth 2 times daily as needed for Heartburn 60 tablet 1 04/12/20 Active Insulin Pen Needle 32G X 4 MM MISCIndications: Insulin controlled gestational diabetes mellitus (GDM) in third trimester ([facility]) Use 1 syringe once daily 100 Each 1 05/10/20 20 Active acetaminophen (TYLENOL) 500 MG tablet Take 2 tablets by mouth every 8 hours Maximum allowable Acetaminophen amount = 4 Grams (4000 mg) / 24 hours. 60 tablet 1 05/16/20 Active Additional Information Patient not taking.Reported on 05/21/2020 ibuprofen (MOTRIN) 800 MG tablet Take 1 tablet by mouth every 8 hours 60 tablet 1 05/16/20 20 Active Additional Information Patient not taking.Reported on 05/21/2020 Vit-DSS-Fe Fum-FA ( VITAMIN WITH IRON) tablet Take 1 tablet by mouth once daily 60 tablet 1 05/16/20 20 Active oxyCODONE-acetam inophen (PERCOCET) 5-325 MG tablet Take 1 tablet by mouth every 4 hours as needed 12 tablet 05/17/20 20 Active silver sulfADIAZINE (SILVADENE) 1 % creamIndications :Cellulitis of other specified site Apply to affected area 2 times daily 50 g 05/21/20 20 Active amLODIPine (NORVASC) 10 MG tablet Take 1 tablet by mouth once daily 30 tablet 5 05/21/20 20 Active Active Problems Problem Noted Date Diagnosed Date care following delivery 04/22 Transient hypertension of , antepartum 05/11/2020 Diabetes mellitus, delivered, current hospitaliz ation 04/12/2020 Substance abuse 11/23/2019 Tobacco use in 11/23/2019 Rh negative status during 11/21/2019 Maternal morbid obesity, delivered, current hosp italization Hypertension in , delivered Immunizations Immunization Administration Dates Next Due MMR 05/16/2020(Deferred: See Comments - pt is immune per transcribed labs) Rho D Immune Globulin 05/13/2020(Deferre d: See Comments - baby is o neg),04/12/2020 Social History Tobacco Use Types Packs/Day Years Used Date Smoking Tobacco: Every Day Cigarettes Smokeless Tobacco: Never Tobacco Cessation:Ready to Q uit: No; Counseling Given: Yes Alcohol Use Standard Drinks/Week Comments Not Currently 0 (1 standard drink = 0.6 oz pur e alcohol) Comments No Sex and Gender Information Value Date Recorded Sex Assigned at Not on file Legal Sex Female 9:58 AM CDT Gender Identity Not on file Sexual Orientation Not on file Last Filed Vital Signs Vital Sign Reading Time Taken Comments Blood Pressure 164/88 05/21/2020 1:31 PM CDT man ual repear Pulse 62 05/21/2020 1:24 PM CDT Temperature 36.5 C (97.7 F) 05/21/2020 1:24 PM CDT Respiratory Rate 20 05/16/2020 7:45 AM CDT Oxygen Saturation 100% 05/16/2020 7:45 AM CDT Inhaled Oxygen Concentration - - Weight 141.5 kg (312 lb) 05/21/2020 1:24 PM CDT Height 175.3 cm (5' 9) 05/11/2020 11:0 3 PM CDT Body Mass Index 46.07 05/11/2020 11:03 PM CDT Plan of Treatment Health Maintenance Due Date Last Done Comments HEPATITIS C SCREENING 03/19/2010 DTAP/TDAP/TD VACCINES (1 - Tdap) 2011 HEPATITIS B VACCINE (1 of 3 - 19+ 3-dose series) 2011 PNEUMOCOCCAL VACCINE (1 of 2 - PCV) 2011 PAP SMEAR 2013 HPV VACCINE (1 - 3-dose SCDM series) 2019 DEPRESSION SCREENING 09/21/2024 COVID-19 VACCINE (1 - 2023-2 5 season) 2025 INFLUENZA VACCINE (#1) 2025 ZOSTER VACCINE (1 of 2) 2042 HIV SCREENING Completed 04/12/2020 HIB VACCINE Aged Out No longer eligi ble based on patient's age to complete this topic MENINGOCOCCAL (Group B) VACC INE SHARED DECISION-MAKING Aged Out No longer eligibl e based on patient's age to complete this topic MENINGOCOCCAL GROUPS A/C/Y/W VACCINE Aged Out No longer eligible b ased on patient's age to complete this topic Procedures Procedure Name Priority Date/Time Associated Diagnosis Comments HIV-1 HIV-2 ANTIBODY + HIV P24 AG PANEL Routine 04/12/2020 9:38 AM CDT , unspecified gestational age from Last 3 Months or Most Recently Relevant to Health Maintenance Results * HIV-1 HIV-2 ANTIBODY + HIV P24 AG PANEL (04/12/2020 9:38 AM CDT) HIV1/2 Ab + P24 Ag Non Reactive Non Reactive 04/12/2020 11:02 AM CDT [facility] Blood BLOOD SPECIMEN / Unknown Venipuncture / Unknown 04/12/2020 9:38 AM CDT 04/12/2020 9:50 AM CDT Narrative [facility] - 04/12/2020 11:02 AM CDT No Laboratory evidence of HIV infection. Marielle Alfonso MD LAB - CHEMISTRY ORDERABLES nal Result [facility] [address] [place] [address] from Last 3 Months or Most Recently Relevant to Health Maintenance Insurance [facility] SELF PAY NO INSURANCE Member Subscriber Plan / Payer (Ef fective for All Dates) Name:Fara Lilly Member ID:Not on file Relation to Subscriber:Not on file Name:FARA LILLY Subscriber ID:Not on file (Home) Address: [address] [place] [id number] Payer ID:Not on file Group ID:Not on file Type:Self Pay Address: [place], [place] Advance Directives * Full Code (Latest Code Status on File) Date Activated Date Inactivated Comments 05/12/2020 12:11 AM 05/16/2020 2:40 PM Care Teams Press Clippings Cutter And Paster Relationship Specialty Start Date End Date Lena Bains PA-C [address] [place] [address] PCP - General 08/29/21
--- OUTSIDE RECORDS SUMMARY | 2025-06-20 11:43 | XMS_ITS | Clinical Summary ---
Author Organization [facility] Address [address] [place] [address] Care Team Providers Care Pest Controller Assistant Name Role Phone No, Physician Primary Care Provider [phone] Allergies Active Allergy Reactions Criticality Noted Date Comments Adhesive Rash Medium 01/20/2023 Medications sertraline 200 mg capsule 1 capsule daily Act jose nicotine (NICODERM CQ) 21 mg nicotine 21 mg/24 hr daily transdermal patch Active lisinopril-hyd roCHLOROthiazi de (ZESTORETIC) 20-25 mg per tablet Take 1 tablet by mouth daily Active dicyclomine (BENTYL) 20 mg tablet TAKE 1 TABLET BY MOUTH EVERY 6 HOURS NEEDED FOR ABDOMINAL PAIN Active diazePAM (VALIUM) 2 mg tablet daily 12/29/19 24 Active amLODIPine (NORVASC) 10 mg tablet Take 1 tablet (10 mg total) by mouth daily Active ALPRAZolam (XANAX) 0.5 mg tablet 10/16/19 24 Active lancets (OneTouch Delica Plus Lancet) 33 gauge misc OneTouch Delica Plus Lancet 33 gauge TEST BLOOD SUGAR FOUR TIMES DAILY DIRECTED Active blood glucose diagnostic (glucose blood) strip Use to check blood sugar 4 times daily. Fasting and one hour after each meal. 04/12/20 20 Active needles, insulin disposable (INSULIN PEN NEEDLE MISC) 1 Syringe by Not Applicable route daily 05/10/20 20 Active atorvastatin (LIPITOR) 40 mg tablet 05/17/20 25 Active buPROPion XL (WELLBUTRIN XL) 300 mg 24 hr tablet 04/11/20 25 Active Vraylar 3 mg capsule capsule 04/11/20 25 Active Jardiance 10 mg tablet 06/20/20 24 Active etonogestreL (NEXPLANON) 68 mg implant 1 each (68 mg total) continuously as needed 04/14/20 25 030 Active famotidine (PEPCID) 40 mg tablet 05/23/20 25 Active omeprazole (PriLOSEC) 40 mg capsule 05/23/20 25 Active TRUEplus Pen Needle 31 gauge x 5/16 needle 05/24/20 25 Active prochlorperazi ne (COMPAZINE) 5 mg tablet Take 1 tablet (5 mg total) by mouth every 6 (six) hours as needed 04/27/20 25 Active promethazine (PHENERGAN) 1.25 mg/mL syrup every 6 hours 03/16/20 25 Active Januvia 100 mg tablet 02/11/20 25 Active cholecalcifero l (VITAMIN D-3) 2000 unit tablet Take 1 tablet (2,000 Units total) by mouth daily 30 tablet 11 06/02/20 25 026 Active blood-glucose sensor (Dexcom G7 Sensor) deviceIndicati ons:Type 2 diabetes mellitus with hyperglycemia, without long-term current use of insulin ([facility]) Will use 3 sensors per month to check blood sugar continuously. 3 each 06/16/20 25 Active insulin lispro (HumaLOG, ADMELOG) 100 unit/mL pen for injectionIndic ations:type 2 diabetes mellitus Inject 10 Units under the skin 3 (three) times a day with meals 12 mL 06/16/20 25 Active Alcohol Prep Pads pads, medicatedIndic ations:Type 2 diabetes mellitus with hyperglycemia, without long-term current use of insulin ([facility]) Apply 1 each topically once for 1 dose 100 each 06/16/20 25 Active LANTUS 100 unit/mL (3 mL) pen for injectionIndic ations:Type 2 diabetes mellitus with hyperglycemia, without long-term current use of insulin ([facility]) Inject 50 Units under the skin nightly 15 mL 06/16/20 25 Active risperiDONE (RisperDAL) 1 mg tablet daily 025 Discontin ued(Alter aliza therapy) risperiDONE (RisperDAL) 0.5 mg tablet daily 025 Discontin ued(Alter aliza therapy) pantoprazole DR (PROTONIX) 40 mg EC tablet Take 1 tablet (40 mg total) by mouth 2 (two) times a day 025 Discontin ued(Alter aliza therapy) metoclopramide (REGLAN) 5 mg tablet metoclopramide 5 mg tablet TAKE 1 TABLET BY MOUTH EVERY 6 HOURS 025 Discontin ued(Alter aliza therapy) hydrOXYzine (VISTARIL) 25 mg capsule 1-2 capsules Orally up to 4 times a day as needed for 30 days 025 Discontin ued(Alter aliza therapy) Alcohol Prep Pads pads, medicated 02/11/20 025 Discontin ued(Reord er) LANTUS 100 unit/mL (3 mL) pen for injection 05/23/20 025 Discontin ued(Reord er) insulin lispro (HumaLOG, ADMELOG) 100 unit/mL pen for injectionIndic ations:type 2 diabetes mellitus Inject 10 Units under the skin 3 (three) times a day with meals TDD 45 units. 025 Discontin ued(Reord er) blood-glucose sensor (Dexcom G7 Sensor) device Will use 3 sensors per month to check blood sugar continuously. 3 each 06/02/20 025 Discontin ued(Reord er) insulin lispro (HumaLOG, ADMELOG) 100 unit/mL pen for injectionIndic ations:type 2 diabetes mellitus Inject 10 Units under the skin 3 (three) times a day with meals 12 mL 3 06/02/20 025 Discontin ued(Reord er) LANTUS 100 unit/mL (3 mL) pen for injection Inject 50 Units under the skin nightly 15 mL 3 06/02/20 25 025 Discontin ued(Reord er) Active Problems Problem Noted Date Diagnosed Date Vitamin D deficiency 06/08/2025 Morbid obesity 05/16/2025 Bariatric surgery status 02/02/2025 Other specified pre-operative examination 2024 Type 2 diabetes mellitus wit h hyperglycemia, without long-term current use of insulin 10/17/2024 Primary hypertension 10/17/2024 GERD (gastroesophageal reflux disease) 01/27/202 5 BMI 45.0-49.9, adult 01/21/2024 Encounters Date Type Department Care Team Description 06/16/2025 9:00 AM CDT Clinical Support [facility] Endocrinology Metabolism and Lipid [address] [facility] 13th [place] [address] [place] [address] Type 2 diabetes mellitus with hyperglycemia, without long-term current use of insulin (HCC) (Primary Dx) 06/16/[address] [facility] Endocrinology Metabolism and Lipid [address] [facility] [address] [place] [address] Flaca Tena, STEPHANIE dexcom g7; Prior Auth 06/02/2025 1:30 PM CDT Office Visit [facility] Endocrinology Metabolism and Lipid [facility] [facility] 13th [place] [address] [place] [phone] Christine Quesada MD Type 2 diabetes mellitus with hyperglycemia, without long-term current use of insulin (HCC) (Primary Dx); Vitamin D deficiency 06/02/2025 Telephone [facility]) - [facility] Minimally Invasive Surgery [address] [place] [address] 12th Floor, [place] [phone] Christiano Flores MD Surgery Confirmation 05/12/2025 8:00 AM CDT Office Visit [facility] - [facility] Minimally Invasive Surgery [address] [place] [address] Medical Office Building [address] [place] [phone] Christiano Flores MD Morbid obesity (HCC) (Primary Dx); BMI 45.0-49.9, adult (HCC); Type 2 diabetes mellitus with hyperglycemia, without long-term current use of insulin (HCC); Primary hypertension; Mixed hyperlipidemia; Gastroesophageal reflux disease with esophagitis without hemorrhage; PCOS (polycystic ovarian syndrome) 04/20/2025 [facility]) [facility] Minimally Invasive Surgery [facility] [facility] 12th Floor, [place] [address] Christiano Flores MD Medical Question/Miscellane ous 04/19/2025 7:30 AM CDT Therapy [facility] [place] [address] [facility] [address], [address] [place] [address] Lee Ruth DPT Morbid obesity (HCC) (Primary Dx); BMI 45.0-49.9, adult (HCC); Type 2 diabetes mellitus with hyperglycemia, without long-term current use of insulin (HCC); Primary hypertension 04/19/2025 Plan of Care Documentation [facility] [place] [address] [facility] [address] [place] [address] 04/14/2025 11:13 AM CDT - 04/14/2025 11:59 PM CDT Hospital Encounter [facility] Cardiology [address] [place], [place] [id number] Morbid obesity (HCC) Discharge Disposition: Discharge to home or self care 03/20/2025 11:00 AM CDT Clinical Support [facility] Diabetes and Nutrition [address] [facility] [address] [place] [address] Morbid obesity (HCC) (Primary Dx); BMI 45.0-49.9, adult (HCC); Type 2 diabetes mellitus with hyperglycemia, without long-term current use of insulin (HCC); Primary hypertension; Gastroesophageal reflux disease, unspecified whether esophagitis present from Last 3 Months Surgical History Surgery Date Site/Laterality Comments SECTION 05/12/2020 CHOLECYSTECTOMY 08/27/2021 COLONOSCOPY UPPER GASTROINTESTINAL ENDOSCOPY Medical History Medical History Date Comments Diabetes mellitus Hypertension Anxiety Depression Type 2 diabetes mellitus Morbid obesity (HCC) GERD (gastroesophageal reflux disease) Gastroparesis PCOS (polycystic ovarian syndrome) Family History Medical History Relation Name Comments Drug abuse Father Alessandro Heart attack Father Alessandro Heart disease Maternal Grandmother Naimoi Depression Mother Doris Drug abuse Mother Doris Relation Name Status Comments Father Alessandro Maternal Grandmother Napriceoi Mother Doris Social History Tobacco Use Types Packs/Day Years Used Date Smoking Tobacco: Former Cigarettes Q uit: 12/2024 Smokeless Tobacco: Never Tobacco Cessation:Counseling Given: Not Answered Alcohol Use Standard Drinks/Week Comments Not Currently [...] on file Legal Sex Female 6:30 PM [employer] Gender Identity Not on file Sexual Orientation Not on file Obstetrics History Last Filed Vital Signs Vital Sign Reading Time Taken Comments Blood Pressure 111/75 06/02/2025 1:08 PM CDT Pulse 92 06/02/2025 1:08 PM CDT Temperature 36.6 C (97.8 F) 06/02/2025 1:08 PM CDT Respiratory Rate 14 03/02/2025 8:38 AM CDT Oxygen Saturation 97% 05/12/2025 7:57 AM CDT Inhaled Oxygen Concentration - - Weight 128.8 kg (284 lb) 06/16/2025 9:13 AM CDT Height 172.7 cm (5' 8) 06/16/2025 9:13 AM CDT Body Mass Index 43.18 06/16/2025 9:13 AM CDT Plan of Treatment Upcoming Encounters Date Type Department Care Team (Latest Contact Info) Description 07/19/2025 8:15 AM CDT Hospital Encounter [facility] Operating Room [address] [place] [address] Christiano Flores MD [address] [phone] [place] [address] 07/19/2025 8:15 AM CDT - 07/19/2025 11:55 AM CDT Surgery [facility] Operating Room [address] [address] Christiano Flores MD [address] [phone] [place] [address] LAPAROSCOPIC GASTRIC BYPASS Scheduled Procedures Name Priority Associated Diagnoses Date/Ti me LAPAROSCOPIC GASTRIC BYPASS Morbid obesity (HCC) 07/19/2025 8:15 AM CDT Health Maintenance Due Date Last Done Comments Albumin Creatinine Ratio, Urine 1992 Cervical Cancer Screening 1992 Depression Screening 1992 Hepatitis C Screening 1992 Dilated Eye Exam 1992 Foot Exam 1992 Varicella Vaccines (1 of 2 - 13+ 2-dose series) 2005 Hepatitis B Screening 2010 Regular Well Visit/Exam 18-64 2010 Pneumococcal vaccine <65 (1 of 2 - PCV) 2011 HPV Vaccines (1 - 3-dose SCD M series) 2019 Influenza Vaccine (#1) 2025 07/10/2017 Hemoglobin A1C 11/30/2025 06/02/2025, 02/19, 02/04/2024 Lipid Panel 02/28/2026 02/28/2025, 02/04/2024 eGFR 02/28/2026 02/28/2025, 01/19, 03/18/2023, Additional history exists DTaP/Tdap/Td Vaccine (3 - Td or Tdap) 04/05/2030 04/05/2020, 07/10/2017 Procedures Procedure Name Priority Date/Time Associated Diagnosis Comments POCT HEMOGLOBIN A1C Routine 06/02/2025 1 :23 PM CDT Type 2 diabetes mellitus with hyperglycemia, without long-term current use of insulin (HCC) POCT GLUCOSE Routine 06/02/2025 1:20 PM CDT Type 2 diabetes mellitus with hyperglycemia, without long-term current use of insulin (HCC) ECG 12-LEAD Routine 04/14/2025 11:24 AM CDT Morbid obesity (HCC) EGFR Routine 02/28/2025 2:53 PM CDT Morbid obesity (HCC) LIPID PANEL Routine 02/28/2025 2:53 PM CDT Morbid obesity (HCC) from Last 3 Months or Most Recently Relevant to Health Maintenance Results * (ABNORMAL) POCT hemoglobin A1c (06/02/2025 1:23 PM CDT) [facility] Hemoglobin A1C, POC 9.9(A) 4.0 - 5.6 % Blood 06/02/2025 1:23 PM CDT Christine Quesada MD POINT OF CARE TEST ORDERABLES Final Result * POCT glucose (06/02/2025 1:20 PM CDT) [facility] Glucose Blood, POC 164 Normal Fasting 70 - 100, Random <200 mg/dL Blood 06/02/2025 1:20 PM CDT Christine Quesada MD POINT OF CARE TEST ORDERABLES Final Result * ECG 12 lead (04/14/2025 11:24 AM CDT) 04/14/2025 11:2 1 AM CDT Narrative [facility] - 04/14/2025 1:53 PM CDT Vent Rate: 77 bpm RR Interval: 778 msec VA Interval: 140 msec QRS Duration: 81 msec QT Interval: 348 msec QTC Interval: 379 msec P-R-T [place]: 4 - 27 - 31 degrees IMPRESSION: SINUS RHYTHM No prior EKG for comparison Electronically Signed By: Dr Scott Rose Hesham Kirkpatrick COMPUTER GAME DESIGNER ECG ORDERABLES Final Resul t [facility] * eGFR (02/28/2025 2:53 PM CDT) [facility] eGFR >90 >=60 mL/min/1. 73 m2 Comment: Interpretive Data Reference Interval Normal >/= 90 mL/min/1.73m2 Mildly decreased* 60 - 89 mL/min/1.73m2 Mildly to moderately decreased 45 - 59 mL/min/1.73m2 Moderately to severely decreased 30 - 44 mL/min/1.73m2 Severely decreased 15 - 29 mL/min/1.73m2 Kidney Failure < 15 mL/min/1.73m2 *Relative to young adult level Estimated glomerular filtration rate is determined by the 2020 CKD-EPI equation recommended by the National Kidney Foundation (A Unifying Approach to GFR Estimation: Recommendations of the NKF-ASK Task Force on Reassessing the Inclusion of Race in Diagnosing Kidney Disease, JASN 2020). The CKD-EPI equation should not be used for patients with unstable renal function and has not been validated in children and those over 70. Current interpretive data was last reviewed 2021. Blood 02/28/2025 2:53 PM CDT 02/28/2025 3:18 PM CDT Hesham Kirkpatrick NP LAB BLOOD ORDERABLES Final Result DANIELLE GOMEZ ([place]) 1 [facility] Department [place] [address] * (ABNORMAL) Lipid panel (02/28/2025 2:53 PM CDT) Cholesterol 204(H) 30 - 199 mg/dL Comment: Interpretive Data Ages < or = 19 years Acceptable: <170 mg/dL Borderline high: 170-199 mg/dL High: >or= 200 mg/dL Ages > or = 20 years Desirable: <200 mg/dL Borderline high: 200-239 mg/dL High: >or= 240 mg/dL Literature References: 1. Expert Panel on Integrated Guidelines for Cardiovascular Health and Risk Reduction in Children and Adolescents. Pediatrics 2011;128:S213 2. NCEP Expert Panel. Circulation 2004;110:227 Current Interpretive Data was last revised on 2018. Triglycerides 261(H) <=149 mg/dL DANIELLE GOMEZ ([place]AD[place]) Comment: Interpretive Data Ages < or = 9 years Acceptable: <75 mg/dL Borderline high: 75-99 mg/dL High: >or= 100 mg/dL Ages 10 to 20 years Acceptable: <90 mg/dL Borderline high: 90-129 mg/dL High: >or= 130 mg/dL Ages > or = 20 years Desirable: <150 mg/dL Borderline high: 150-199 mg/dL High: 200-499 mg/dL Very high: >or= 499 mg/dL Literature References: 1. Expert Panel on Integrated Guidelines for Cardiovascular Health and Risk Reduction in Children and Adolescents. Pediatrics 2011;128:S213 2. NCEP Expert Panel. Circulation 2004;110:227 Current Interpretive Data was last revised on 2018. HDL 55 >=40 mg/dL DANIELLE GOMEZ ([place]) Comment: Interpretive Data Ages < or = 19 years Acceptable: >45 mg/dL Borderline low: 40-45 mg/dL Low: <40 mg/dL Ages > or = 20 years Desirable: >or= 60 mg/dL Low: <40 mg/dL Literature References: 1. Expert Panel on Integrated Guidelines for Cardiovascular Health and Risk Reduction in Children and Adolescents. Pediatrics 2011;128:S213 2. NCEP Expert Panel. Circulation 2004;110:227 Current Interpretive Data was last revised on 2018. LDL, calculated 105 <=129 mg/dL DANIELLE GOMEZ ([place]) Comment: Interpretive Data Ages < or = 19 years Acceptable: <110 mg/dL Borderline high: 110-129 mg/dL High: >or= 130 mg/dL Ages > or = 20 years Optimal: <100 mg/dL Near optimal: 100-129 mg/dL Borderline high: 130-159 mg/dL High: >160 mg/dL Calculated using the Paresh LDL-C estimating equation. This equation was implemented on 2024. Prior to this date LDL-C was estimated using the Friedewald equation. Literature References: 1. Expert Panel on Integrated Guidelines for Cardiovascular Health and Risk Reduction in Children and Adolescents. Pediatrics 2011;128:S213 2. NCEP Expert Panel. Circulation 2004;110:227 3. Paresh Zavala al. GIANFRANCO Cardiol. 2020 January 19;5(5):540-548. doi: [email or web address] Current Interpretive Data was last revised on 2024. Non-HDL Cholesterol 149 mg/dL DANIELLE GOMEZ ([place]) Comment: Interpretive Data Ages < or = 19 years Acceptable: <120 mg/dL Borderline high: 120-144 mg/dL High: >145 mg/dL Ages > or = 20 years When triglycerides are >200 mg/dL, Non-HDL cholesterol is a secondary target of therapy with treatment goals that are 30 mg/dL greater than the LDL cholesterol target. Literature References: 1. Expert Panel on Integrated Guidelines for Cardiovascular Health and Risk Reduction in Children and Adolescents. Pediatrics 2011;128:S213 2. NCEP Expert Panel. Circulation 2004;110:227 Current Interpretive Data was last revised on 2018. Chol/HDL ratio 4 GENEVIEVE GOMEZ ([place]) Blood 02/28/2025 2:53 PM CDT 02/28/2025 3:18 PM CDT Hesham Kirkpatrick NP LAB BLOOD ORDERABLES Final Result DARSHANGREGORIO GOMEZ ([place]) 1 [facility] Department of [employer] [place], [place] [id number] from Last 3 Months or Most Recently Relevant to Health Maintenance Insurance [facility] Advance Directives For more information, please contact: [phone] * Full Code (Latest Code Status on File) Date Activated Date Inactivated Comments 03/02/2025 7:45 AM 03/02/2025 1:14 PM Care Teams Pest Controller Assistant Relationship Specialty Start Date End Date No, Physician PCP - General 05/05/21
--- OUTSIDE RECORDS SUMMARY | 2025-06-20 11:43 | XMS_ITS | Clinical Summary ---
Author Organization [facility] Address [address] [place] [address] Phone Care Team Providers Care Chiller Hand Name Role Phone David Prater MD Primary Care Provider [phone] Medications prochlorperazin e (COMPAZINE) 5 MG TabletIndicatio ns:Nausea and Vomiting Take 1 Tablet by mouth every 6 hours as needed for Nausea - 1st line. Indications: Nausea and Vomiting 10 Tablet 04/27/2025 Active Encounters Date Type Department Care Team Description 04/27/2025 11:14 AM CDT - 04/27/2025 7:15 PM CDT Emergency [facility] Emergency [address] [place] [address] Markell Cohen, PAC Acetonemia Discharge Disposition: Discharged to home or Selfcare 04/27/2025 Travel from Last 3 Months Social History Tobacco Use Types Packs/Day Years Used Date Smoking Tobacco: Every Day Cigarettes 1 14.9 Started: 07/10/2010 Smokeless Tobacco: Never Tobacco Cessation:Ready to Q uit: Not Asked; Counseling Given: Not Answered Alcohol Use Standard Drinks/Week Comments Not Currently 0 (1 standard drink = 0.6 oz pur e alcohol) Sexually Active Control Partners Comments Not Currently Comments No Sex and Gender Information Value Date Recorded Sex Assigned at Not on file Legal Sex Female 12:34 PM CDT Gender Identity Not on file Sexual Orientation Not on file Last Filed Vital Signs Vital Sign Reading Time Taken Comments Blood Pressure 160/89 04/27/2025 7:00 PM CDT Pulse 92 04/27/2025 7:00 PM CDT Temperature 37.4 C (99.3 F) 04/27/2025 11:10 AM CDT Respiratory Rate 17 04/27/2025 7:00 PM CDT Oxygen Saturation 98% 04/27/2025 7:00 PM CDT Inhaled Oxygen Concentration - - Weight 121.6 kg (268 lb 1.3 oz) 025 11:10 AM CDT Height 172.7 cm (5' 8) 04/27/2025 11:1 0 AM CDT Body Mass Index 40.76 04/27/2025 11:10 AM CDT Plan of Treatment Health Maintenance Due Date Last Done Comments Hepatitis B Immunization (1 of 3 - 19+ 3-dose series) 2011 Pneumococcal Immunization Combined (1 of 2 - PCV) 2011 Pap Smear 2013 Human Papillomavirus (HPV) Immunization (1 - 3-dose SCDM series) 2019 Cervical Cancer Screening (CCS) 2022 HPV/Cotest 2022 Influenza Immunization (#1) 2025 07/10/2017 SARS-COV-2 Immunization ( season) 2025 10/26/2021, 10/05/2021 Respiratory Syncytial Virus (RSV) Immunization (Adult) (1 - 1-dose 75+ series) 2067 Hepatitis C Virus (HCV) Screening Completed 11/21/2019, 11/21/2019 TdaP Immunization Completed 04/05/2020, 07/10/2017 Meningococcal Immunization (ACWY) Aged Out No longer eligible b ased on patient's age to complete this topic Rotavirus Immunization Aged Out No lo nger eligible based on patient's age to complete this topic Procedures Procedure Name Priority Date/Time Associated Diagnosis Comments TEST FOR ACETONE/KETONES STAT 04/27/2025 6:35 PM CDT POCT GLUCOSE STAT 04/27/2025 5:23 PM CDT TEST FOR ACETONE/KETONES STAT 04/27/2025 3:40 PM CDT BLOOD GASES, VENOUS W/ O2 SATURATION STAT 04/27/2025 2:44 PM CDT XR ABDOMEN KUB FLAT PLATE STAT 04/27/2025 1:43 PM CDT GOLD TOP TUBE STAT 04/27/2025 12:06 PM CDT BLUE TOP TUBE STAT 04/27/2025 12:06 PM CDT CBC WITH AUTO DIFFERENTIAL STAT 04/27/2025 12:06 PM CDT TEST FOR ACETONE/KETONES STAT 04/27/2025 12:06 PM CDT EXTRA TUBES STAT 04/27/2025 12:06 PM CDT CMP (COMPREHENSIVE METABOLIC PANEL) STAT 04/27/2025 12:06 PM CDT COMPLETE BLOOD COUNT (CBC) WITH DIFF STAT 04/27/2025 12:06 PM CDT from Last 3 Months Results * (ABNORMAL) ACETONE QUAL (04/27/2025 6:35 PM CDT) Only the most recent of3 resultswithin the time period is included. [facility] ACETONE Small amount(A) Negative 04/27/2025 7:00 PM CDT [facility] Blood Venipuncture / Unknown 04/27/2025 6:35 PM CDT 04/27/2025 6:46 PM CDT us Markell Cohen PAC CHEMISTRY ORDERABLES Final Result [facility] [address] [place] [address] * (ABNORMAL) POCT Glucose (04/27/2025 5:23 PM CDT) [facility] GLUCOSE,BEDSID E POCT 155(H) 70 - 99 mg/dL 04/27/2025 5:24 PM CDT [facility] Comment: RN Notified AYDE MATHEW Blood 04/27/2025 5:23 PM CDT 04/27/2025 5:24 PM CDT us None Provider POINT OF CARE TESTING Final Resu lt [facility] [address] [place] [address] * (ABNORMAL) Blood Gases, Venous w/ O2 Saturation (04/27/2025 2:44 PM CDT) O2 STATUS room air 04/27/2025 2:48 PM CDT [facility] PH VENOUS 7.45(H) 7.34 - 7.43 04/27/2025 2:48 PM CDT [facility] PCO2 (VENOUS) 31(L) 41 - 51 mmHg 04/27/2025 2:48 PM CDT [facility] PO2 VENOUS 100(H) 30 - 50 mmHg 04/27/2025 2:48 PM CDT [facility] O2 SAT AQUILES, MEASURED 98(H) 60 - 85 % 03/2025 2:48 PM CDT [facility] BICARBONATE 21.6(L) 22.0 - 26.0 mmol/L 04/27/2025 2:48 PM CDT [facility] BASE VENOUS -0.6 -2.0 - 3.0 mmol/L 04/27/2025 2:48 PM CDT [facility] CARBOXYHEMOGLOBIN 1.9 0.0 - 5.0 % 04/27/2025 2:48 PM CDT [facility] METHEMOGLOBIN 0.4 0.0 - 1.5 % 04/27/2025 2:48 PM CDT [facility] AQUILES Blood Gas Venipuncture / Unknown 04/27/2025 2:44 PM CDT 04/27/2025 2:44 PM CDT Narrative [facility] - 04/27/2025 2:48 PM CDT Interpretation - The usual approach to interpreting a VBG consists of using the venous measurements to estimate the corresponding arterial values, then using these estimated values for clinical decision-making exactly as if an ABG had been performed. The difference between the venous measurements and the arterial measurements depends upon the site of venous sampling and varies among laboratories. Correlation with arterial blood gases - Although arterial blood gas analysis is more accurate than venous analysis for the assessment of oxygenation, measurement of PCO2, pH, and HCO3 are similar with some minor adjustments: The central venous pH is usually 0.03 to 0.05 pH units lower than the arterial pH and the PCO2 is usually 4 to 5 mmHg higher, with little or no increase in HCO3. Mixed venous blood (ie, SvO2 drawn from a pulmonary artery catheter) gives results similar to central venous blood (ie, ScvO2 drawn from a central venous catheter). The peripheral venous pH is approximately 0.02 to 0.04 pH units lower than the arterial pH, the venous serum HCO3 concentration is approximately 1 to 2 meq/L higher, and the venous PCO2 is approximately 3 to 8 mmHg higher. There are no venous to arterial conversions for ScvO2, SvO2, or peripheral venous oxyhemoglobin saturation (PvO2). Importantly, sufficient variability between arterial and venous blood gas values may exist such that periodic correlation between arterial and venous blood gas values is always prudent. us Markell Cohen PAC CHEMISTRY ORDERABLES Final Result [facility] [address] [place] [address] * XR ABDOMEN KUB FLAT PLATE (04/27/2025 1:43 PM CDT) Anatomical Region Laterality Modality Abdomen N/A Digital Radiogra phy 04/27/2025 3:00 PM CDT Impressions 04/27/2025 3:02 PM CDT IMPRESSION: No evidence of bowel obstruction Narrative 04/27/2025 3:02 PM CDT EXAM DESCRIPTION: XR ABDOMEN KUB FLAT PLATE REASON FOR STUDY: generalized body aches for the past 4 days. Pt states she was seen at [facility] last evening and diagnosed with pneumonia, but is too nauseous to take her oral antibiotics. H/o gastroparesis, DM TECHNIQUE: 3 radiographic view(s) of the abdomen . COMPARISON: Abdominal radiographs 07/10/2024 FINDINGS: No abnormal bowel dilatation. No suspicious calcifications Multilevel degenerative changes of the spine THIS IS AN ELECTRONICALLY VERIFIED FINAL REPORT 04/27/2025 3:00 PM - Electronically signed by Cara Holcomb M.D. FT: FT Report ID: [id number] Reading Location: [id number] Procedure Note Cara Gage MD - 04/27/2025 EXAM DESCRIPTION: XR ABDOMEN KUB FLAT PLATE REASON FOR STUDY: generalized body aches for the past 4 days. Pt states she was seen at [facility] last evening and diagnosed with pneumonia, but is too nauseous to take her oral antibiotics. H/o gastroparesis, DM TECHNIQUE: 3 radiographic view(s) of the abdomen . COMPARISON: Abdominal radiographs 07/10/2024 FINDINGS: No abnormal bowel dilatation. No suspicious calcifications Multilevel degenerative changes of the spine THIS IS AN ELECTRONICALLY VERIFIED FINAL REPORT 04/27/2025 3:00 PM - Electronically signed by Cara Holcomb M.D. FT: FT Report ID: [id number] Reading Location: [id number] IMPRESSION: No evidence of bowel obstruction Markell Cohen PAC IMG DIAGNOSTIC ORDER MIKEY Final Result * Gold Top Tube (04/27/2025 12:06 PM CDT) Blood No Phlebotomy Charged / Unknown 04/27/2025 12:06 PM CDT 04/27/2025 12:36 PM CDT Markell Cohen PAC CHEMISTRY ORDERABLES Final Result [facility] [address] [place] [address] * Blue Top Tube (04/27/2025 12:06 PM CDT) Blood No Phlebotomy Charged / Unknown 04/27/2025 12:06 PM CDT 04/27/2025 12:36 PM CDT us Markell Cohen PAC HEMATOLOGY ORDERABLE S Final Result [facility] [address] [place] [address] * (ABNORMAL) CBC with Auto Differential (04/27/2025 12:06 PM CDT) WBC 11.02 4.00 - 12.00 10(3)/mcL 04/27/2025 12:39 PM CDT [facility] RBC 5.57(H) 3.80 - 5.30 10(6)/mcL 04/27/2025 12:39 PM CDT [facility] HEMOGLOBIN (HGB) 15.5 12.0 - 15.8 g/dL 04/27/2025 12:39 PM CDT [facility] HEMATOCRIT (HCT) 46.7 36.0 - 47.0 % 04/27/2025 12:39 PM CDT [facility] MCV 83.8 82.0 - 96.0 fL 04/27/2025 12:39 PM CDT [facility] MCH 27.8 26.0 - 34.0 pg 04/27/2025 12:39 PM CDT [facility] MCHC 33.2 31.0 - 36.0 g/dL 04/27/2025 12:39 PM CDT [facility] PLATELET COUNT 194 140 - 440 10(3)/mcL 04/27/2025 12:39 PM CDT [facility] RDW 13.7 11.8 - 15.5 % 04/27/2025 12:39 PM CDT [facility] MPV 10.8 9.7 - 12.4 fL 04/27/2025 12:39 PM CDT [facility] NEUTROPHILS 77.2(H) 47.0 - 73.0 % 04/27/2025 12:39 PM CDT [facility] LYMPHOCYTES 15.5(L) 18.0 - 42.0 % 04/27/2025 12:39 PM CDT [facility] MONOCYTES 5.9 4.0 - 12.0 % 04/27/2025 12:39 PM CDT [facility] EOSINOPHILS 0.1 0.0 - 5.0 % 04/27/2025 12:39 PM CDT [facility] BASOPHILS 0.8 0.0 - 1.0 % 04/27/2025 12:39 PM CDT [facility] IMMATURE GRANULOCYTE 0.5(H) 0.0 - 0.4 % 04/27/2025 12:39 PM CDT [facility] Comment:Immature Granulocyte s includes Metamyelocytes, Myelocytes, and Promyelocytes. ABSOLUTE NEUTROPHILS 8.51(H) 1.60 - 7.70 10(3)/mcL 04/27/2025 12:39 PM CDT [facility] ABSOLUTE LYMPHOCYTES 1.71 1.30 - 3.20 10(3)/mcL 04/27/2025 12:39 PM CDT [facility] ABSOLUTE MONOCYTES 0.65 0.20 - 1.00 10(3)/mcL 04/27/2025 12:39 PM CDT [facility] ABSOLUTE EOSINOPHIL 0.01 0.00 - 0.40 10(3)/mcL 04/27/2025 12:39 PM CDT [facility] ABSOLUTE BASOPHILS 0.09 0.00 - 0.10 10(3)/mcL 04/27/2025 12:39 PM CDT [facility] ABSOLUTE IMMATURE GRANULOCYTE 0.05(H) 0.00 - 0.03 10 (3) mcL. 04/27/2025 12:39 PM CDT [facility] NRBC PER 100 WBC 0 04/27/20 12:39 PM CDT [facility] Blood Venipuncture / Unknown 04/27/2025 12:06 PM CDT 04/27/2025 12:35 PM CDT us Markell Wickn PAC HEMATOLOGY ORDERABLE S Final Result [facility] [address] [place] [address] * (ABNORMAL) CMP (04/27/2025 12:06 PM CDT) SODIUM 136 136 - 145 mmol/L 04/27/2025 12:56 PM CDT [facility] POTASSIUM 3.3(L) 3.5 - 5.1 mmol/L 04/27/2025 12:56 PM CDT [facility] CHLORIDE 99 98 - 107 mmol/L 04/27/2025 12:56 PM CDT [facility] CO2, VENOUS 22 22 - 30 mmol/L 04/27/2025 12:56 PM CDT [facility] ANION GAP 18.3(H) <18.0 mmol/L 04/27/2025 12:56 PM CDT [facility] GLUCOSE 291(H) 70 - 99 mg/dL 04/27/2025 12:56 PM CDT [facility] BUN 8 5 - 18 mg/dL 04/27/2025 12:56 PM CDT [facility] CREATININE, BLOOD 0.56(L) 0.60 - 1.00 mg/dL 04/27/2025 12:56 PM CDT [facility] BUN/CREATININE RATIO 14 12 - 20 ratio 04/27/2025 12:56 PM CDT [facility] TOTAL PROTEIN 7.4 6.0 - 8.0 g/dL 04/27/2025 12:56 PM CDT [facility] ALBUMIN 4.2 3.5 - 5.0 g/dL 04/27/2025 12:56 PM CDT [facility] A/G RATIO 1.3 1.0 - 2.2 04/27/2025 12:56 PM CDT [facility] CALCIUM 9.2 8.7 - 10.5 mg/dL 04/27/2025 12:56 PM CDT [facility] T BILI 0.8 0.2 - 1.2 mg/dL 04/27/2025 12:56 PM CDT [facility] SGOT (AST) 27 <43 U/L 04/27/2025 12:56 PM CDT [facility] SGPT (ALT) 30 <56 U/L 04/27/2025 12:56 PM CDT [facility] ALKALINE PHOSPHATASE 73 40 - 150 U/L 04/27/2025 12:56 PM CDT [facility] GFR, ESTIMATED >60 >=60 04/27/2025 12:56 PM CDT [facility] Comment: Creatinine Clearance is the preferred criteria for selecting drug dose adjustments in renally impaired patients. The GFR is provided as additional pertinent clinical information. GFR is reported in mL/min/1.73 sq m. Calculation based on the Chronic Kidney Disease Epidemiology Collaboration (CKD- EPI) equation refit without adjustment for race. GFR, EST. >60 >=60 025 12:56 PM CDT [facility] GFR, EST. NONAFRICAN >60 >=60 04/27/2025 12:56 PM CDT [facility] Blood Venipuncture / Unknown 04/27/2025 12:06 PM CDT 04/27/2025 12:35 PM CDT us Markell Cohen PAC CHEMISTRY ORDERABLES Final Result [facility] [address] [place] [address] from Last 3 Months Insurance MEDICAID [facility] Care Teams Chiller Hand Relationship Specialty Start Date End Date David Prater MD [facility] [place] [address] PCP - General Emergency Medicine 07/10/24
--- OUTSIDE RECORDS SUMMARY | 2025-06-20 11:43 | XMS_ITS | Encounter Summary ---
Author Organization [facility] Address [address] [place] [address] Phone Care Team Providers Care Aegis Console Operator Track Name Role Phone No, Physician Primary Care Provider [phone] Encounter Details Date Type Department Care Team (Late st Contact Info) Description 03/13/2025 Telephone [facility] Advanced Medicine ([facility]) - [facility] [place] Minim[facility] [address], [place] [address] Hesham Kirkpatrick NP [address] [facility] [id number] [place] [address] Social History Tobacco Use Types Packs/Day Years [...] on file Legal Sex Female 6:30 PM [employer]VE[employer]IGATION [employer] Gender Identity Not on file Sexual Orientation Not on file documented as of this encounter Plan of Treatment Upcoming Encounters Date Type Department Care Team (Latest Contact Info) Description 07/19/2025 8:15 AM CDT Hospital Encounter [facility] Operating Room [address] [place] [address] Christiano Flores MD [address] [facility] [id number] [place] [address] 07/19/2025 8:15 AM CDT - 07/19/2025 11:55 AM CDT Surgery [facility] Operating Room [address] [place] [address] Christiano Flores MD [address] [facility] [id number] [place] [address] LAPAROSCOPIC GASTRIC BYPASS Scheduled Procedures Name Priority Associated Diagnoses Date/Ti me LAPAROSCOPIC GASTRIC BYPASS Morbid obesity (HCC) 07/19/2025 8:15 AM CDT documented as of this encounter Visit Diagnoses Not on filedocumented in this encounter Care Teams Aegis Console Operator Track Relationship Specialty Start Date End Date No, Physician PCP - General 05/05/21 documented as of this encounter
[2025-06-20] MEDS: CYCLOBENZAPRINE HCL 10 MG TABLET PO (11:49)
[2025-06-20] MEDS: traMADol HCL (*CRX) 50 MG TABLET PO (11:49)
--- OUTSIDE RECORDS SUMMARY | 2025-06-20 12:00 | XMS_ITS | Data Portability ---
Author Organization [place] - [facility], Main Office Address [address] [place] [address] Assessment No assessment recorded. Plan of Treatment Reminders Order Date Submit Date Provider Last Modified By Organization Details Last Modified Time Details Appointments None recorded. Lab HbA1c (hemoglobin A1c), blood 2022 023 [facility], [address], [address], [place], [address], 3 14:53:25 CMP, serum or plasma 2022 023 [facility], [address], [address], [place], [address], 3 14:53:24 lipid panel, serum 2022 023 [facility], [address], [address], [place], [address], 3 14:53:24 microalbumi n/creatinin e, mass ratio, urine 2022 023 [facility], [address], [address], [place], [address], 3 14:53:24 TSH + free T4, serum 2022 023 [facility], [address], [address], [place], [address], 3 14:53:25 Referral endocrinolo gy referral 2022 023 [email or web address] Dorothea Cano MD, [address], [place], [address], 3 15:26:12 Procedures None recorded. Surgeries None recorded. Imaging None recorded. Medication Orders Lantus Solostar U-100 Insulin 100 unit/mL (3 mL) subcutaneou s pen 2022 023 [email or web address] [id number], [address], [place], [place], [id number], 3 15:19:07 Patient TargetsNo targets recorded. Patient InstructionsNo instructions recorded. Reason for Referral Endocrinology Referral for H ypercortisolism Referring Physician: Meño Webster, Endocrinology, Encounter Date: 03/16/2023 Results Created Date Observation Date Name Description Value Unit Range Abnormal Flag Note LastModifiedBy Organization Detail LastModifiedTime 02/04/2002/03/2023 MICRO ALBUM N RNDM W/CRE AT RATIO ur creat 183.54 mg/dL REFER ENCE RANGE NOT ESTAB LISHE D FOR RANDO M URINE CREAT ININE Not Available [facility] (Lab) [address] [place], [address], 02/03/2023 10:28:01 02/04/20 23 02/03/2023 MICRO ALBUM N RNDM W/CRE AT RATIO microalbumin , urine 21.9 mg/L 0.0-16 .6 high Not Available [facility] (Lab) [address] [place], [address], 02/03/2023 10:28:01 02/04/20 23 02/03/2023 MICRO ALBUM N RNDM W/CRE AT RATIO microalbumin /creatinine ratio 12 mcg/m g 0-29 THE [facility] CAN [facility]AT[facility] N DEFIN ES ABNOR MALIT IES IN ALBUM IN EXCRE TION FOLLO WS: CATEG ORY RESUL T (MCG/ MG CREAT ININE ) TRACEE L <30 MICRO ALBUM INURI A 30-29 9 CLINI BRYCE ALBUM INURI A > OR = 300 THE ADA RECOM MENDS THAT 2 OF 2 SPECI MENS COLLE CTED WITHI N A 3- TO 6-MON TH PERIO D BE ABNOR MAL BEFOR E CONSI JOHNNIE G A PATIE NT TO HAVE CROSS ED ONE OF THESE DIAGN OSTIC THRES HOLDS . REFER ENCE: DIABE SWEET[facility] CARE, VOL. 26: S94-S 96, [address] [facility] (Lab) [address] [place], [address], 02/03/2023 10:28:01 02/04/20 23 02/03/2023 COMPR EHENS VON METAB OLIC PANEL sodium 137 mmol/ L 137-14 5 Not Available [facility] (Lab) [address] [place], [address], 02/03/2023 10:35:12 02/04/20 23 02/03/2023 COMPR EHENS VON METAB OLIC PANEL potassium 3.9 mmol/ L 3.5-5. [address] [facility] (Lab) [address] [place], [address], 02/03/2023 10:35:12 02/04/20 23 02/03/2023 COMPR EHENS VON METAB OLIC PANEL chloride 103 mmol/ L 98-107 Not Available [facility] (Lab) [address] [place], [address], 02/03/2023 10:35:12 02/04/20 23 02/03/2023 COMPR EHENS VON METAB OLIC PANEL carbon dioxide 27 mmol/ L 22-30 Not Available [facility] (Lab) [address] [place], [address], 02/03/2023 10:35:12 02/04/20 23 02/03/2023 COMPR EHENS VON METAB OLIC PANEL anion gap 10.9 mmol/ L 14-22 low Not Available [facility] (Lab) [address] [place], [address], 02/03/2023 10:35:12 02/04/20 23 02/03/2023 COMPR EHENS VON METAB OLIC PANEL glucose 179 mg/dL 70-99 high Not Available [facility] (Lab) [address] [place], [address], 02/03/2023 10:35:12 02/04/20 23 02/03/2023 COMPR EHENS VON METAB OLIC PANEL BUN 16 mg/dL 8-19 Not Available [facility] (Lab) [address] [place], [address], 02/03/2023 10:35:12 02/04/20 23 02/03/2023 COMPR EHENS VON METAB OLIC PANEL creatinine 0.49 mg/dL 0.66-1 .25 low Not Available [facility] (Lab) [address] [place], [address], 02/03/2023 10:35:12 02/04/20 23 02/03/2023 COMPR EHENS VON METAB OLIC PANEL GFR >60 Refer ence Range : [place] [facility] GFR Healt hy Adult : >60 mL/mi n/1.7 3 m2 Chron ic Kidne y Disea se: 15-60 mL/mi n/1.7 3 m2 Kidne y Failu re: <15/m L/min /1.73 m2 www.n iddk. nih.g ov The MDRD study equat ion has not been valid ated in child yohana <18 years of age; pregn ant women ; the elder ly >85 years of age; or in some racia l or ethni c subgr oups, such as Hispa nics. Outsi de the valid ated deon eters , estim ated GFR is less accur ate, requi ring clini bryce judgm ent on a case- by-ca se basis . Clini bryce inter preta tion for other races and ages must be made by the clini enedelia. The MDRD study equat ion has not been valid ated for the evalu ation of serum creat inine relat ed to nutri mica l statu s or medic ation usage . For perso ns <18 years of age, a pedia tric GFR calcu lator is avail able on the [facility] websi te: https ://truman lopez.madhav mary/indira parksal s/kdo qi/gf r_cal culat or Not Available [facility] (Lab) [address] [place], [address], 02/03/2023 10:35:12 02/04/20 23 02/03/2023 COMPR EHENS VON METAB OLIC PANEL alkaline phosphatase 100 U/L 38-126 Not Available [facility] (Lab) [address] [place], [address], 02/03/2023 10:35:12 02/04/20 23 02/03/2023 COMPR EHENS VON METAB OLIC PANEL alanine aminotransfe rase 24 U/L 0-35 Not Available [facility] (Lab) [address] [place], [address], 02/03/2023 10:35:12 02/04/20 23 02/03/2023 COMPR EHENS VON METAB OLIC PANEL aspartate aminotransfe rase 19 U/L 15-37 Not Available [facility] (Lab) [address] [place], [address], 02/03/2023 10:35:12 02/04/20 23 02/03/2023 COMPR EHENS VON METAB OLIC PANEL bilirubin, total 0.60 mg/dL 0.20-1 .30 Not Available [facility] (Lab) [address] [place], [address], 02/03/2023 10:35:12 02/04/20 23 02/03/2023 COMPR EHENS VON METAB OLIC PANEL calcium 9.4 mg/dL 8.4-10 .2 Not Available [facility] (Lab) [address] [place], [address], 02/03/2023 10:35:12 02/04/20 23 02/03/2023 COMPR EHENS VON METAB OLIC PANEL total protein 7.2 g/dL 6.3-8. 2 Not Available [facility] (Lab) [address] [place], [address], 02/03/2023 10:35:12 02/04/20 23 02/03/2023 COMPR EHENS VON METAB OLIC PANEL albumin 3.9 g/dL 3.4-5. 0 Not Available [facility] (Lab) [address] [place], [address], 02/03/2023 10:35:12 02/04/20 23 02/03/2023 COMPR EHENS VON METAB OLIC PANEL globulin 3.3 g/dL 2.6-4. 2 Not Available [facility] (Lab) [address] [place], [address], 02/03/2023 10:35:12 02/04/20 23 02/03/2023 COMPR EHENS VON METAB OLIC PANEL A/G ratio 1.2 ratio 1.0-2. 0 Not Available [facility] (Lab) [address] [place], [address], 02/03/2023 10:35:12 02/04/20 23 02/03/2023 HEMOG LOBIN A1C HA1C 8.2 % 4.0-6. 0 high Diabe sweetie Scree kanwal Crite gissel: <5.7% Consi stent with absen ce of diabe sweetie 5.7-6 .4% Consi stent with incre ased risk for diabe sweetie (pred iabet es) >OR=6 .5% Consi stent with diabe sweetie REFER ENCE: Diabe sweetie Care 2016, 39(Curtis ppl.1 ):s13 -s22 Not Available [facility] (Lab) [address] [place], [address], 02/03/2023 11:07:38 02/04/20 23 02/04/2023 PROGE STERO NE progesterone 0.1 NG/mL Folli cular phase 0.1 - 0.9 Lutea l phase 1.8 - 23.9 Ovula tion phase 0.1 - 12.0 Pregn ant First trime ster 11.0 - 44.3 Secon d trime ster 25.4 - 83.3 Third trime ster 58.7 - 214.0 Postm enopa usal 0.0 - 0.1 Perfo rmed at: [facility] [address] [place] [address] Lab Direc tor: Chalino thakkar PhD, Phone : [phone] Not Available [facility] (Lab) [address] [place] [address], [address], 02/04/2023 08:19:37 02/04/20 23 02/04/2023 TESTO STERO NE,TO BONY-L ABCOR P testosterone 16 NG/dL 13-71 Perfo rmed at: [facility] [id number] [place] [address] Lab Direc tor: Chalino thakkar PhD, Phone : [phone] Not Available [facility] (Lab) [address] [place] [address], [address], 02/04/2023 08:19:38 02/04/2002/04/2023 PROLA CTIN prolactin 7.2 NG/mL 4.8-23 .3 Perfo rmed at: [facility] [address] [place] [address] Lab Direc tor: Chalino thakkar PhD, Phone : [phone] Not Available [facility] (Lab) [address] [place] [address], [address], 02/04/2023 08:19:40 02/04/20 23 02/04/2023 ESTRA DIOL estradiol 19.3 pg/mL Adult Femal e: Folli cular phase 12.5 - 166.0 Ovula tion phase 85.8 - 498.0 Lutea l phase 43.8 - 211.0 Postm enopa usal <6.0 - 54.7 Pregn jorge luis 1st trime ster 215.0 - >4300 .0 Phillip ECLIA metho dolog y Perfo rmed at: [facility] [address] [place], [place] [id number] Lab Direc tor: Chalino thakkar PhD, Phone : [phone] Not Available [facility] (Lab) [address] [place], [address], 02/04/2023 08:20:09 02/04/20 23 02/04/2023 LH/RAJESH TEINI ZING HORMO NE LH - [facility] 7.8 mIU/m L Adult Femal e: Folli cular phase 2.4 - 12.6 Ovula tion phase 14.0 - 95.6 Lutea l phase 1.0 - 11.4 Postm enopa usal 7.7 - 58.5 Perfo rmed at: [place] [id number] [place] [address] Lab Direc tor: Chalino thakkar PhD, Phone : [phone] Not Available [facility] (Lab) [address] [place], [address], 02/04/2023 08:20:12 02/04/20 23 02/04/2023 FSH/F OLLIC LE STIMU LAT. HORMO NE FSH - [facility] 8.4 mIU/m L Adult Femal e: Folli cular phase 3.5 - 12.5 Ovula tion phase 4.7 - 21.5 Lutea l phase 1.7 - 7.7 Postm enopa usal 25.8 - 134.8 Perfo rmed at: [facility] [address] [place] [address] Lab Direc tor: Chalino thakkar PhD, Phone : [phone] Not Available [facility] (Lab) [address] [place], [address], 02/04/2023 08:20:13 02/04/20 23 02/04/2023 INSUL IN insulin 22.6 uIU/m L 2.6-24 .9 Perfo rmed at: [facility] [id number] [place] [address] Lab Direc tor: Chalino thakkar PhD, Phone : [phone] Not Available [facility] (Lab) [address] [place] [address], [address], 02/04/2023 11:13:00 02/04/20 23 02/11/2023 DHEA- SULFA TE DHEA-sulfate 134.0 ug/dL 84.8-3 78.0 Perfo rmed at: [address] [address] Lab Direc tor: Chalino thakkar PhD, Phone : [phone] Not Available [facility] (Lab) [address] [place] [address], [address], 02/11/2023 00:07:19 02/27/20 23 02/26/2023 US, head + neck, soft tissu e [facility] [address] [place] [address] [phone] Patien t Name: SARMAD SALINAS Access ion #: [id number] Sex: F : 1989 5 Locati on: RAD Attend ing Physic david: MEÑO WEBSTER Orderi ng Physic david: MEÑO WEBSTER Exam Date: 02/27/20 3:35 PM Exam Name: US NECK HEAD SOFT TISSUE Admitt ing Diagno sis(es ): RADIOL OGY REPORT - FINAL EXAM: US NECK HEAD SOFT TISSUE HISTOR Y: nontox ic thyroi d nodule 32-yea r-old female with thyroi d nodule . COMPAR MAHOGANY: None availa ble. TECHNI QUE: Ultras ound examin ation of the thyroi d was perfor med. FINDIN GS: The right lobe of the thyroi d measur es 4.6 x 1.2 x 2.4 cm. The left lobe of the thyroi d measur es 5.1 x 1.3 x 1.7 cm. The thyroi d isthmu s measur es 3.5 mm AP. The thyroi d parenc hyma is homoge neous bilate rally withou t solid nodule s or cystic lesion s. No suspic ious calcif icatio ns or abnorm al color Dopple r blood flow. Page 1 of 2 [facility] t Name: SARMAD SALINAS Access ion #: [id number] Sex: F : 1989 7 Exam Date: 02/27/20 3:35 PM Exam Name: US NECK HEAD SOFT TISSUE Admitt ing Diagno sis(es ): IMPRES TARIQ: Normal sonogr aphic evalua tion of the thyroi d. Create d and electr onical ly signed by: Malcolm sabillon MD Signed Date: 02/27/20 4:29 PM (CT) Dictat ed by: Malcolm sabillon MD (CT) (CT) Page [address] of [address] (Imaging) [address] [place], [address], 03/06/2023 09:45:58 02/27/2002/26/2023 US, thyro id No observ ation record ed. [address] [place], [address], 03/06/2023 09:45:58 Result Notes None recorded. Problems Name Problem SNOMED Code Status Onset Date Resolution Date Notes Provider Name and Address Organization Details Recorded Time Hypercortisoli sm 69014408 Active 2022 Meño Webster MD [address] [facility], [address], [place], [address] [facility] [employer] [facility] 3 10:25:36 Thyroid nodule 189810972 Active 2022 VICKY Caballero null, [place] [employer] 12:03:24 Uncontrolled type 2 diabetes mellitus 925608468 Active 2022 Meño Webster MD [address] [facility], [facility] [address], [place], [address], [facility] [employer] 14:46:53 Problem Notes None recorded. Procedures Surgical History Date Name Laterality Status Provider Name and Address Organization Details Recorded Time delivery completed Not Available [facility] 11/19/2022 13:52:03 Cholecystectomy completed Not Available [facility] 11/19/2022 13:52:03 Colonoscopy completed Not Available [facility] 11/19/2022 13:52:03 Endoscopy completed Not Available [facility] 0 11/19/2022 13:52:03 Imaging Results None recorded. Procedure Notes None recorded. Medical Equipment None Reported. Allergies No known drug allergies Medications Name Sig Start Date Stop Date Status Note LastModified by Organization Details LastModified Time atorvastati n 20 mg tablet TAKE 1 TABLET BY MOUTH EVERY DAY active Not Available Not Available No t Available sertraline 100 mg tablet TAKE 2 TABLETS BY MOUTH EVERY DAY active Not Available Not Available No t Available Lantus U-100 Insulin 100 unit/mL subcutaneou s solution ADMINISTE R 15 UNITS UNDER THE SKIN EVERY DAY AT BEDTIME active Not Available Not Available No t Available amoxicillin 500 mg tablet TAKE 1 TABLET BY MOUTH TWICE DAILY 11/04 completed Not Available Not Available Not Available glimepiride 2 mg tablet Take 1 tablet twice a day by oral route before meals for 90 days. 03/16 completed Not Available Not Available Not Available ondansetron 8 mg disintegrat ing tablet DISSOLVE 1 TABLET ON THE TONGUE EVERY 8 HOURS FOR 48 HOURS active Not Available Not Available No t Available famotidine 20 mg tablet TAKE 1 TABLET BY MOUTH TWICE DAILY NEEDED 11/04 completed Not Available Not Available Not Available metoclopram joseph 5 mg tablet TAKE 1 TABLET BY MOUTH EVERY 6 HOURS active Not Available Not Available No t Available dicyclomine 20 mg tablet TAKE 1 TABLET BY MOUTH EVERY 6 HOURS NEEDED FOR ABDOMINAL PAIN active Not Available Not Available No t Available dexamethaso ne 1 mg tablet TAKE 1 TABLET BY MOUTH AT 10 PM NIGHT BEFORE 8 AM CORTISOL 06/26 /2023 completed Not Available Not Available Not Available amlodipine 10 mg tablet TAKE 1 TABLET BY MOUTH EVERY DAY active Not Available Not Available No t Available cephalexin 500 mg capsule TAKE 1 CAPSULE BY MOUTH EVERY 6 HOURS FOR 7 DAYS 03/16 completed Not Available Not Available Not Available pantoprazol e 40 mg tablet,roseanne yed release TAKE 1 TABLET BY MOUTH TWICE DAILY active Not Available Not Available No t Available metformin 1,000 mg tablet TAKE 1 TABLET BY MOUTH TWICE DAILY 03/16 completed Not Available Not Available Not Available nicotine 21 mg/24 hr daily transdermal patch active Not Available Not Available Not Available omeprazole 20 mg capsule,del ayed release TAKE 1 CAPSULE BY MOUTH EVERY DAY IN THE MORNING 03/16 completed Not Available Not Available Not Available lisinopril 20 mg-hydrochl orothiazide 25 mg tablet TAKE 1 TABLET BY MOUTH EVERY DAY active Not Available Not Available No t Available lorazepam 1 mg tablet TAKE 1 TABLET BY MOUTH THREE TIMES A DAY NEEDED FOR AGITATION 11/04 completed Not Available Not Available Not Available ondansetron 4 mg disintegrat ing tablet DISSOLVE 1 TABLET ON THE TONGUE EVERY 6 HOURS NEEDED FOR NAUSEA OR VOMITING active Not Available Not Available No t Available cefdinir 300 mg capsule TAKE 1 CAPSULE BY MOUTH TWICE DAILY 03/16 completed Not Available Not Available Not Available fluticasone propionate 50 mcg/actuati on nasal spray,suspe nsion SHAKE LIQUID AND USE 1 SPRAY IN EACH NOSTRIL TWICE DAILY 11/04 completed Not Available Not Available Not Available metformin ER 500 mg tablet,exte nded release 24 hr Take 1 tablet twice a day by oral route with meals for 90 days. 03/16 completed Not Available Not Available Not Available sertraline 50 mg tablet TAKE 1 TABLET BY MOUTH EVERY DAY 11/04 completed Not Available Not Available Not Available metoclopram joseph 10 mg tablet TAKE 1 TABLET BY MOUTH BEFORE MEALS AND AT BEDTIME active Not Available Not Available No t Available hydroxyzine pamoate 25 mg capsule active Not Available Not Available N ot Available insulin syringe U-100 with needle 1/2 mL 30 gauge USE DIRECTED WITH INSULIN INJECTION S. active Not Available Not Available No t Available azithromyci n 500 mg tablet TAKE 1 TABLET BY MOUTH EVERY DAY 03/16 completed Not Available Not Available Not Available Abilify 20 mg tablet Take 1 tablet every day by oral route. active Not Available Not Available No t Available metformin ER 750 mg tablet,exte nded release 24 hr TAKE 1 TABLET BY MOUTH TWICE DAILY 03/16 completed Not Available Not Available Not Available aripiprazol e 5 mg tablet active Not Available Not Available Not Available Alcohol Prep Pads USE DIRECTED TO INJECT INSULIN. active Not Available Not Available No t Available Lantus Solostar U-100 Insulin 100 unit/mL (3 mL) subcutaneou s pen ADMINISTE R 20 UNITS UNDER THE SKIN EVERY DAY AT DINNER active Not Available Not Available No t Available Cholestyram ine Light 4 gram oral powder active Not Available Not Available Not Available TRUEplus Insulin 0.5 mL 31 gauge x 5/16 syringe USE TO INJECT INSULIN UP TO TWICE DAILY active Not Available Not Available No t Available Victoza 3-Baldo 0.6 mg/0.1 mL (18 mg/3 mL) subcutaneou s pen injector ADMINISTE R 1.8 MG UNDER THE SKIN DAILY 11/04 completed Not Available Not Available Not Available Farxiga 5 mg tablet TAKE 1 TABLET BY MOUTH TWICE DAILY BEFORE MEALS FOR 90 DAYS 03/16 completed Not Available Not Available Not Available TRUEplus Pen Needle 31 gauge x 5/16 USE DIRECTED WITH VICTOZA DAILY active Not Available Not Available No t Available TRUEplus Pen Needle 31 gauge x 1/4 USE DIRECTED WITH VICTOZA DAILY active Not Available Not Available No t Available OneTouch Delica Plus Lancet 33 gauge TEST BLOOD SUGAR FOUR TIMES DAILY DIRECTED active Not Available Not Available No t Available Vitals Date Recorded Body mass index (BMI) Body height Oxygen saturation Oxygen saturation in Arterial blood by Pulse oximetry Heart rate Body temperature Body weight Systolic And Diastolic Provider Name and Address Organization Details Last Updated DateTime 3 40.3 kg/m2 173.99 cm 94 % 94 % 89 /min 97.6 [degF] 620475. 35 g 125/85 mm[Hg] Not Available [facility] 3 13:52:14 Date Recorded Body height Body mass index (BMI) Body weight Body temperature Systolic And Diastolic Provider Name and Address Organization Details Last Updated DateTime 03/16/2023 173.99 cm 40.6 kg/m2 024150. 53 g 97.8 [degF] 143/95 mm[Hg] Jennifer Beck CMA [place] [facility] 14:27:20 Social History Question Answer Notes LastModified by Organizat ion Details LastModified Time Tobacco Smoking Status Current Every Day Smoker Not Available [facility] 11/19/2022 13:51:57 Do You Wear A Helmet When Biking? Yes [id number] Information not available 11/19/2022 What Is Your Level Of Caffeine Consumption? Occasional [id number] Information not available 11/19/2022 What Type Of Diet Are You Following? REGULAR MIGRATION.92181 [id number] Information not available 11/19/2022 How Many Children Do You Have? 1 [id number].09537 [id number] Information not available 11/19/2022 What Is Your Relationship Status? Single [id number].[id number] Information not available 11/19/2022 Do You Use Your Seat Belt Or Car Seat Routinely? Yes [id number].96057 [id number] Information not available 11/19/2022 Are You Sexually Active? No MIGRATION.55870 [id number] Information not available 11/19/2022 How Much Tobacco Do You Smoke? 1 PPD MIGRATION.91940 [id number] Information not available 11/19/2022 Do You Have Any Dietary Restrictions? Yes NO BUTTER, LOW FAT, EASILY DIGESTIBLE FOODS MIGRATION.20309 [id number] Information not available 11/19/2022 Sex: Female Functional Status Question Answer Note LastModified by Organizat ion Details LastModified Time Do you use any illicit or recreational drugs? No [id number] Information not available 11/19/2022 What is your level of alcohol consumption? None [id number] Information not available 11/19/2022 What is your exercise level? None [id number] Information not available 11/19/2022 Mental Status Question Answer Note LastModified by Organizat ion Details LastModified Time Do you feel stressed (tense, restless, nervous, or anxious, or unable to sleep at night)? [id number] Information not available 11/19/2022 Family History Relationship Description Onset Age of this Age Resolved Age Notes LastModified by Organization Details LastModified Time Father Depressive disorder [id number] Not available 11/19/2022 13:52:03 Father Hypertensive disorder [id number] Not available 11/19/2022 13:52:03 Mother Depressive disorder [id number] Not available 11/19/2022 13:52:03 Mother Hypertensive disorder [id number] Not available 11/19/2022 13:52:03 Mother Hypercholest erolemia [id number] Not available 11/19/2022 13:52:03 Mother Heart disease [id number] Not available 11/19/2022 13:52:03 Medical History Condition Response DIABETES, TYPE Y OBESITY Y GI PROBLEMS Y HEART ARRHYTHMIA DEPRESSION (INCLUDING POST ) Y GERD/NAUSEA Y HYPERTENSION Y HIGH CHOLESTEROL / HYPERLIPIDEMIA Y Gynecological HistoryNo gynecological history recorded. Obstetrics History GPAL:G 0 P 0 0 0 0 Past Encounters Encounter ID Performer Location Encounter Start Date Encounter Closed Date Diagnosis/Indication Diagnosis SNOMED-CT Code Diagnosis ICD10 Code Diagnosis IMO Codes Diagnosis Note [id number] Meño Webster MD [facility] [address] [place] [address] 11/04/2022 00:00:00 11/04/2022 13:15:53 [id number] Meño Webster MD [facility] [place] [address] [place] [address] 03/16/2023 14:14:48 03/16/2023 15:26:11 Uncontrolled type 2 diabetes mellitus 794060547 E11.65 a1c of 8.2%- patient encouraged to restart metformin as she has severe metabolic syndrome and potential early cushings syndrome as her cortisol was borderline . Will continue lantus 20 units at bedtime and patient advised to titrate up by 4 units every 4 days until fasting glucose is running 90-120 mg/dL consistent ly. Continue on metformin twice daily with meals Okay to hold farxiga and glimepirid e for now. She at some point may need to start on korlym or recorlev for cortisol blockade therapy. Hypercortisolism 0334017 6 E24.9 DST borderline positive- refer to endocrine at preferred facility per patient. Spent up to 28 minutes preparing to see the patient (eg, review of tests), obtaining and/or reviewing separately obtained history, performing a medically appropriat e examinatio n and evaluation , counseling and educating the patient, ordering medication s, tests, along with documentin g clinical informatio n in the electronic health record, michelaen maxy interpreti ng results and communicat ing results to the patient. RTC as needed. Health Concerns Section Related Observation LastModified by Organization Detai ls LastModified Time None Recorded Concern Status LastModified by Organization Details LastModified Time None Recorded Advance Directives Directive None Recorded Payers Insurance Date Sequence Insurance Name Policy Number Policy Holly Covered Member ID Holly Member ID Guarantor Name 12/11/2022 1 [place] [employer] Sarmad Lilly [id number] Sarmad Lilly 06/10/2025 1 [facility] - DOS ON OR AFTER 21 (MEDICAID REPLACEMENT - HMO) Sarmad Lilly [id number] Sarmad Lilly Notes Date Note Type Note Provider Name and Address Organization Details Recorded Time 03/16/2023 text/html ROS as noted in the HPI 32 yo female comes in as follow up in management of uncontrolled type 2 DM (A1C of 8.2%), dyslipidemia. last seen/initial visit in Oct at that time we added farxiga and glimepiride scale. We had patient continue on lantus but split at 6 units in morning and 8 units at bedtime and increase by 1 unit every 3 days until fasting glucose 90-130 mg/dL and transitioned patient to ER metformin As far as her glucose her sugars are running under 200 mg/dL more consistently. She is taking lantus 20 units at bedtime and her fasting glucose is running 170 mg/dL range. She is no longer taking farxiga or metformin-she stopped metformin 2.5 weeks. She stopped farxiga. She stopped glimepiride. She was diagnosed with gastroparesis by Dr. Rey- she will be going for gastric bypass referral. She will be seeing them soon.Unable to do GLP1 hormone therapy. labs from 03/13:salivary cortisol negative x 224 hour urine cortisol 32 ug/dL labs from 02/03/23:insulin 22.6 uU/mlprolactin normalLH/FSH ikxuypi3b of 8.2%glucose 179 mg/dLcr normallft normalmicroalbumin 12 ug/mgtestosterone 16 ng/dLprogesterone 0.1 ng/mL Meño Webster MD [address] [facility] [address], [place], [address], [facility] [place] [employer] [facility] 03/16/2023 15:20:34 OBGyn Episode No OBEpisode recorded.
--- OUTSIDE RECORDS SUMMARY | 2025-06-20 12:01 | XMS_ITS | Data Portability ---
[facility] Address [address] [place] [address] Assessment No assessment recorded. Plan of Treatment Reminders Order Date Submit Date Provider Last Modified By Organization Details Last Modified Time Details Appointments None recorded . Lab vaginal pathogen s panel, LOKESH+prob e, vaginal fluid 2023 024 [facility], 2022 Chris Phillips, [address], [place], [address], 4 06:19:54 cytology report, thin prep, smear or scraping , cervical or vaginal 2023 024 [facility], 2022 Chris Phillips, [address], [place], [address], 4 17:09:06 CMP, serum or plasma 2023 024 [facility], 2022 Chris Phillips, [address], [place], [address], 4 15:54:16 lipid panel, serum 2023 024 [facility] Chris Phillips, [address], [place], [address], 4 11:22:11 CBC 2023 024 [facility], 2022 Chris Phillips, [address], [place], [address], 4 15:54:16 TSH, ultra-se nsitive, serum 2023 024 [facility], 2022 Chris Phillips, [address] [address], [place], [address], 4 11:22:12 HbA1c (hemoglo bin A1c), blood 2022 023 In-Office Order, Internal Use Only DO Not Attach Compendium DO Not Attach Compendium, Do Not Delete/merge, [id number] 09:57:51 glucose, fingerst ick, blood 2022 023 In-Office Order, Internal Use Only DO Not Attach Compendium DO Not Attach Compendium, Do Not Delete/merge, 3 15:58:57 Referral None recorded . Procedures None recorded . Surgeries None recorded . Imaging PET-CT, limited - PET as recommen ded on CT results 12/07/222022 023 [facility] ([facility]), [address] [place], [address], 3 15:17:52 Medication Orders lisinopr il 20 mg-hydro chloroth iazide 25 mg tablet 2023 024 [facility], [address], [place], [id number], 4 15:04:25 amlodipi ne 10 mg tablet 2023 024 [facility], [address], [place], [id number], 4 15:04:24 Januvia 100 mg tablet 2023 024 HAN[facility], [address], [place], [id number], 4 15:04:22 benzonat ate 200 mg capsule 2023 024 [facility] #23115, [address], [place], [id number], 4 15:04:22 pantopra zole 40 mg tablet,d elayed release 2023 024 [facility] #86479, [address], [place], [id number], 4 15:04:23 cycloben zaprine 10 mg tablet 2023 024 [facility] #35093, [address], [place], [id number], 4 15:04:26 nicotine 21 mg/24 hr daily transder mal patch 2022 023 [facility] #42546, [address] [place], [place], [id number], 4 13:53:27 nicotine 14 mg/24 hr daily transder mal patch 2022 023 [facility] #36082, [address] [place], [place], [id number], 4 13:53:32 nicotine 7 mg/24 hr daily transder mal patch 2022 023 [facility] #13704, [address] [place], [place], [id number], 4 13:53:22 metformi n ER 750 mg tablet,e xtended release 24 hr 2022 023 [facility] #44976, [address] [place], [place], [id number], 13:54:03 Lantus U-100 Insulin 100 unit/mL subcutan eous solution 2022 023 [facility], [address], [place], [place], [id number], 13:54:22 Patient TargetsNo targets recorded. Patient Instructions Encounter Date Encounter Id Patient Instructions Last Modified By Organization Details Last Modified Time 10/02/2022 [id number] A healthy lifest yle: care instructions Not available 10/20/2022 13:25:12 Quitting Tobacco : Care Instructions Not available 10/20/2022 13:25:12 11/13/2022 [id number] DRE Faria Discussed with Lena Bains PA-C Not available 11/14/2022 21:38:46 12/25/2022 [id number] A healthy lifest yle: care instructions Not available 12/26/2022 12:13:48 04/14/2024 [id number] learning about t ype 2 diabetes [email or web address] Not available 04/14/2024 15:04:10 type 2 diabetes: care instructions Not available 04/14/2024 15:04:10 cough: care instructions [email or web address] Not available 04/14/2024 15:04:10 When You Want to Lose Weight: Care Instructions [email or web address] Not available 04/14/2024 15:04:10 gastroesophageal reflux disease (GERD): care instructions [email or web address] Not available 04/14/2024 15:04:09 06/08/2024 [id number] A healthy lifest yle: care instructions [email or web address] Not available 06/08/2024 17:40:59 Reason for Referral None Reported. Results Created Date Observation Date Name Description Value Unit Range Abnormal Flag Note LastModifiedBy Organization Detail LastModifiedTime 10/02/19 23 10/02/2022 gluco se, finge rstic k, blood Blood Glucose: mg/dl 291 Not Available In-Off ice Order Internal Use Only DO Not Attach Compendium DO Not Attach Compendium, Do Not Delete/merge, [id number] 10/02/2022 15:44:15 12/26/19 23 12/25/2022 HbA1c (hemo globi n A1c), blood HbA1c 8.6% Not Available In-Office Order Internal Use Only DO Not Attach Compendium DO Not Attach Compendium, Do Not Delete/merge, [id number] 12/25/2022 09:16:59 01/01/20 23 01/01/2023 CORTI VAL - AM cortisol - AM 1.7 ug/dL 6.2-19 .4 below low normal Not Available [facility] ([facility]) [address] [place], [address], 01/08/2023 20:08:35 01/01/20 23 01/08/2023 DEXAM ETHAS ONE, SERUM dexamethason e, serum 155 NG/dL This test was kacey melo and its perfo rmanc e chandler cteri stics deter mined by [facility]. It has not been clear ed or appro dee by the Food and Drug Admin istra tion. Refer ence Range : Adult s basel ine: <30 8:00 AM follo wing 1 mg dexam ethas one previ ous eveni n - 295 8:00 AM follo wing 8 mg dexam ethas one (4 x 2 mg doses ) previ ous day: 1600 - 2850 Not Available [facility] ([facility]) [address] [place], [address], 01/08/2023 20:08:36 02/19/20 23 02/19/2023 CORTI VAL - AM cortisol - AM 0.9 ug/dL 6.2-19 .4 below low normal Not Available [facility] ([facility] [address] [place], [address], 02/19/2023 16:08:55 02/19/20 23 02/19/2023 ACTH, PLASM A acth, plasma 4.9 pg/mL 7.2-63 .3 below low normal ACTH refer ence inter ammy for sampl es colle cted betwe en 7 and 10 AM. Not Available [facility] ([facility]) [address] [facility], [place], [address], 02/19/2023 16:08:56 02/27/20 23 03/05/2023 SALIV PATRICA CORTI VAL X2, TIMED #1 salivary cortisol 0.043 ug/dL This test was devel oped and its perfo rmanc e chandler cteri stics deter mined by [facility]. It has not been clear ed or appro dee by the Food and Drug Admin istra tion. Draw date/ time: 02/24 - 23:30 Refer ence Range : Child yohana and Adult s: 8:00a .m.: 0.025 - 0.600 Noon: <0.01 0 - 0.330 4:00p .m.: 0.010 - 0.200 Midni ght: <0.01 0 - 0.090 Not Available [facility] ([facility]) [address] [facility], [place], [address], 03/12/2023 04:07:31 02/27/20 23 03/11/2023 SALIV PATRICA CORTI VAL X2, TIMED #2 salivary cortisol 0.064 ug/dL Draw date/ time: 02/25 - 23:15 Not Available [facility] ([facility] [address] [place], [address], 03/12/2023 04:07:31 02/27/20 23 03/02/2023 CORTI VAL, URINA RY FREE cortisol,F,u g/L,U 14 ug/L undefi chanel Not Available [facility] ([facility] [address] [place], [address], 03/12/2023 04:07:32 02/27/20 23 03/02/2023 CORTI VAL, URINA RY FREE cortisol,F,u g/24HR,U 32 ug/24 _HR 6-42 Not Available [facility]) [address] [facility], [place], [address], 03/12/2023 04:07:32 06/08/20 24 06/09/2024 NUSWA B VAGIN ITIS PLUS (VG+) atopobium vaginae LOW - 0 score Not Available [facility]) [address] [facility], [place], [address], 06/10/2024 06:19:54 06/08/20 24 06/09/2024 NUSWA B VAGIN ITIS PLUS (VG+) bvab 2 LOW - 0 score Not Available [facility] ([facility]) [address] [facility], [place], [address], 06/10/2024 06:19:54 06/08/20 24 06/09/2024 NUSWA B VAGIN ITIS PLUS (VG+) megasphaera 1 LOW - 0 score Calcu late total score by brianna g the 3 indiv idual bacte rial vagin osis (BV) marke r score s toget her. Total score is inter prete d as follo ws: Total score 0-1: Indic ates the absen ce of BV. Total score 2: Indet ermin ate for BV. Addit ional clini bryce data shoul d be evalu ated to estab michelle a diagn osis. Total score 3-6: Indic ates the prese nce of BV. Not Available [facility] ([facility]) [address] [facility], [place], [address], 06/10/2024 06:19:54 06/08/20 24 06/10/2024 NUSWA B VAGIN ITIS PLUS (VG+) sofya albicans, LOKESH NEGATI VE negati ve Not Available [facility] ([facility]) [address] [facility], [place], [address], 06/10/2024 06:19:54 06/08/20 24 06/10/2024 NUSWA B VAGIN ITIS PLUS (VG+) sofya glabrata, LOKESH POSITI VE negati ve abnormal Publi shed data demon strat e that up to 65% of Jayleen da glabr jefferson ident ified in cases of vagin al jayleen diasi s have decre ased susce ptibi lity to fluco nazol e. Not Available [facility] ([facility] [address] [place], [address], 06/10/2024 06:19:54 06/08/20 24 06/10/2024 NUSWA B VAGIN ITIS PLUS (VG+) trich vag by LOKESH NEGATI VE negati ve Not Available [facility] ([facility] [address] [place], [address], 06/10/2024 06:19:54 06/08/20 24 06/10/2024 NUA B VAGIN ITIS PLUS (VG+) chlamydia trachomatis, LOKESH NEGATI VE negati ve Not Available [facility] [address] [facility], [place], [address], 06/10/2024 06:19:54 06/08/20 24 06/10/2024 NUA B VAGIN ITIS PLUS (VG+) neisseria gonorrhoeae, LOKESH NEGATI VE negati ve Not Available [facility] [address] [facility], [place], [address], 06/10/2024 06:19:54 06/08/20 24 06/09/2024 IGP, APTIM A HPV, RFX 16/18 ,45 HPV aptima NEGATI VE negati ve This nucle ic acid ampli ficat ion test detec ts fourt een high- risk HPV types (16,1 8,31, 33,35 ,39,4 5,51, 52,56 ,58,5 9,66, 68) witho ut diffe renti ation . Not Available [facility] ([facility] [address] [place], [address], 06/13/2024 17:09:05 06/08/20 24 06/13/2024 IGP, APTIM A HPV, RFX 16/18 ,45 diagnosis: MITCH LONGORIA FOR INTRA EPITH ELIAL YOLANDA N OR MERI PURDY . Not Available [facility] ([facility]) [address] [facility], [place], [address], 06/13/2024 17:09:05 06/08/20 24 06/13/2024 IGP, APTIM A HPV, RFX 16/18 ,45 specimen adequacy: MITCH Marshall Satis facto ry for evalu ation . Endoc ervic al and/o r squam ous metap lasti c cells (endo cervi bryce compo nent) are prese nt. Not Available [facility] [address] [facility], [place], [address], 06/13/2024 17:09:05 06/08/20 24 06/13/2024 IGP, APTIM A HPV, RFX 16/18 ,45 clinician provided ICD10: MITCH Marshall Z01.4 19 Not Available [facility] [address] [facility], [place], [address], 06/13/2024 17:09:05 06/08/20 24 06/13/2024 IGP, APTIM A HPV, RFX 16/18 ,45 performed by: MITCH pathak, Cytojoanna marshall (ASCP ) Not Available [facility] [address] [facility], [place], [address], 06/13/2024 17:09:05 06/08/20 24 06/13/2024 IGP, APTIM A HPV, RFX 16/18 ,45 . . Not Available [facility] [address] [facility], [place], [address], 06/13/2024 17:09:05 06/08/20 24 06/13/2024 IGP, APTIM A HPV, RFX 16/18 ,45 note: COMMEN T The Pap smear is a scree kanwal test desig chanel to aid in the detec tion of naresh ligna nt and malig nant condi tions of the uteri ne cervi x. It is not a diagn ostic proce dure and shoul d not be used as the sole means of detec ting cervi bryce cance r. Both false -posi tive and false -nega tive repor ts do occur . Not Available [facility] [address] [facility], [place], [address], 06/13/2024 17:09:05 06/08/20 24 06/13/2024 IGP, APTIM A HPV, RFX 16/18 ,45 test methodology: COMMEN T This liqui d based ThinP rep(R ) pap test was scree chanel with the use of an image guide elieen kiser. Not Available [facility] ([facility]) [address] [facility], [place], [address], 06/13/2024 17:09:05 06/08/20 24 06/13/2024 IGP, APTIM A HPV, RFX 16/18 ,45 HPV genotype reflex COMMEN T Crite gissel not met, HPV Genot ype not perfo rmed. Not Available [facility] ([facility]) [address] [facility], [place], [address], 06/13/2024 17:09:05 09/05/20 22 09/04/2022 NM, gastr ic empty ing scan No observ ation record ed. [address] [facility] [address], [place], [address], 10/02/2022 15:37:53 12/29/19 23 12/27/2022 imagi ng/di agnos tic resul t No observ ation record ed. [address] [facility] [address], [place], [address], 12/30/2022 10:43:24 04/15/20 24 03/31/2024 CT, chest , w/ contr ast No observ ation record ed. [address], [place], [address], 04/17/2024 21:20:22 04/15/20 XR, chest No observ ation record ed. [id number] [facility] [address], [place], [address], 04/17/2024 21:20:22 Result Notes None recorded. 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 Joan Pérez MD Attn: Radha sierra,[address] [facility], [place], [address], [facility] - SIF 1 09:13:03 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 28766020244 9109 Completed 2019 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 Joan Pérez MD Attn: Radha sierra,[address] [facility], [place], [address], [facility] - SIF 1 09:13:03 Rubella non-immu ne 519812376 Active 2019 postpart um immuniza tion Joan Pérez MD Attn: Accountin g,[address] [facility], [place], [address], [place] - [facility] 1 09:13:03 Rubella non-immu ne 241127822 Completed 2019 postpart um immuniza tion Joan Pérez MD Attn: Accountin g,[address] [facility], [place], [address], [place] [facility] 1 09:13:03 RhD negative 817098137 Active 2019 Joan Pérez MD Attn: Accountin g,[address] [facility], [place], [address], [place] [facility] 1 09:13:02 RhD negative 219887676 Completed 2019 Joan Pérez MD Attn: Accountin g,[address] [facility], [place], [address], [place] [facility] 1 09:13:02 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 Joan Pérez MD Attn: Accountin g,[address] [facility], [place], [address], [place] [facility] 1 09:13:02 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 Joan Pérez MD Attn: Accountin g,[address] [facility], [place], [address], [place] [facility] 1 09:13:02 Prediabe rahul 388431495 Completed 2019 A1c 6.0 Joan Pérez MD Attn: Velmajuan ramon g,[address] [facility], [place], [address], [place] [facility] 1 09:13:03 Morbid obesity 282541729 Active 2019 Joan Pérez MD Attn: Velmain g,[address] [place], [address], [place] [facility] 1 09:13:03 Morbid obesity 473628618 Completed 2019 Joan Pérez MD Attn: Velmajuan ramon sierra,[address] [facility], [place], [address], [place] [facility] 1 09:13:03 Insuffic ient care 05789213164 09 Completed 201912/05/2020 MONI CASTRO Attn: Velmajuan ramon sierra,[address] [facility], [place], [address], [place] [facility] 1 15:31:30 Insuffic ient care 63438540909 09 Completed 2019 Joan Pérez MD Attn: Velmajuan ramon sierra,[address] [facility], [place], [address], [place] [facility] 1 09:13:03 Deliveri es by 040150360 Active 2019 Prieto Magnos[place]yler live, [place] - [facility] 0 11:09:54 Hypertri glycerid emia 026508039 Active 2020 MONI CASTRO Attn: Velmajuan ramon sierra,[address] [facility], [place], [address], [place] [facility] 1 12:33:36 Cough 59336839 Active 2023 Cindy Mercado MD Attn: Radha mariela,[address] [facility], [place], [address], [place] [facility] 4 14:46:07 Chronic back pain 913487711 Active 2023 iCndy Mercado MD Attn: Radha mariela,[address] [facility], [place], [address], [place] [facility] 4 14:46:36 Chronic neck pain 32863945741 07 Active 2023 Cindy Mercado MD Attn: Radha mariela,[address] [facility], [place], [address], [place] [facility] 4 14:47:17 Type 2 diabetes mellitus 66966207 Active 2023 Cindy Mercado MD Attn: Radha sierra,[address] [facility], [place], [address], [facility] - [facility] 4 15:00:19 Gastroes ophageal reflux disease 152499347 Active 2023 Cindy Mercado MD Attn: Radha sierra,[address] [facility], [place], [address], [facility] - SI 4 15:01:48 Problem Notes None recorded. Procedures Surgical History Date Name Laterality Status Provider Name and Address Organization Details Recorded Time 06/08/20 24 Date of Last Pap Smear completed Yee Pugh MA [facility] 06/08/2024 17:27:27 11/13/19 23 Control Implant Removal completed MONI LYNCH Attn: Accounting,[address] [place], [address], [facility] 11/18/2022 18:10:53 08/21/20 21 Cholecystectomy completed MONI LYNCH Attn: Accounting,[address] [place], [address], [facility] 07/01/2022 15:14:06 05/30/20 20 Control Implant Insertion completed Prieto Kiran [facility] 05/30/2020 18:27:27 Imaging Results None recorded. Procedure Notes None recorded. Medical Equipment None Reported. Allergies No known drug allergies Medications Name Sig Start Date Stop Date Status Note LastModified by Organization Details LastModified Time multivitam in tablet Take 1 tablet every day by oral route. 11/25 completed Not Available Not Available Not Available fluoxetine 40 mg capsule 01/25 completed Not Available Not Available Not Available cyclobenza lila 10 mg tablet TAKE 1 TABLET BY MOUTH THREE TIMES DAILY NEEDED active Not Available Not Available No t Available atorvastat in 40 mg tablet active Not Available Not Available Not Available methocarba mol 500 mg tablet TAKE 1 TABLET BY MOUTH EVERY 8 HOURS 04/14 completed Not Available Not Available Not Available silver sulfadiazi ne 1 % topical cream 12/05 completed Not Available Not Available Not Available atorvastat in 20 mg tablet TAKE 1 TABLET BY MOUTH EVERY DAY 04/14 completed Not Available Not Available Not Available nicotine 14 mg/24 hr daily transderma l patch Apply 1 patch every day by transder mal route for 14 days. 04/14 completed Not Available Not Available Not Available labetalol 200 mg tablet TAKE 2 TABLETS BY MOUTH EVERY 8 HOURS 12/05 completed Not Available Not Available Not Available ciprofloxa sandrine 750 mg tablet 12/05 completed Not Available Not Available Not Available ibuprofen 800 mg tablet TAKE 1 TABLET BY MOUTH EVERY 6 TO 8 HOURS NEEDED active Not Available Not Available No t Available alprazolam 1 mg tablet 01/25 completed Not Available Not Available Not Available benzonatat e 200 mg capsule Take 1 capsule 3 times a day by oral route as needed. 2023 active Not Available Not Available Not Avai lable hydrocodon e 5 mg-acetami nophen 325 mg tablet TAKE 1 TABLET BY MOUTH EVERY 4 HOURS NEEDED FOR PAIN 02/12 completed Not Available Not Available Not Available fluconazol e 200 mg tablet TAKE 2 TABLETS BY MOUTH FOR 1 DAY active Not Available Not Available No t Available lisinopril 20 mg tablet TAKE 1 TABLET BY MOUTH EVERY DAY active Not Available Not Available No t Available ondansetro n HCl 4 mg tablet TK 1 T PO Q 8 H 12/05 completed Not Available Not Available Not Available clonazepam 0.5 mg tablet active Not Available Not Available Not Available sertraline 100 mg tablet TAKE 2 TABLETS BY MOUTH EVERY DAY active Not Available Not Available No t Available metoclopra mide 5 mg/5 mL oral solution active Not Available Not Available Not Available Lantus U-100 Insulin 100 unit/mL subcutaneo us solution ADMINIST ER 15 UNITS UNDER THE SKIN EVERY DAY AT BEDTIME 04/14 completed Not Available Not Available Not Available clindamyci n HCl 150 mg capsule 06/14 completed Not Available Not Available Not Available penicillin V potassium 500 mg tablet Take 1 tablet twice a day by oral route for 7 days. 05/30 completed Not Available Not Available Not Available metronidaz ole 500 mg tablet TAKE 1 TABLET BY MOUTH EVERY 8 HOURS 10/18 completed Not Available Not Available Not Available nifedipine ER 30 mg tablet,ext ended release 12/05 completed Not Available Not Available Not Available amlodipine 5 mg tablet 04/21 completed Not Available Not Available Not Available prochlorpe razine maleate 10 mg tablet active Not Available Not Available No t Available ciprofloxa sandrine 500 mg tablet TAKE 1 TABLET BY MOUTH EVERY 12 HOURS 10/18 completed Not Available Not Available Not Available aspirin 81 mg tablet,del ayed release Take 1 tablet twice a day by oral route. 05/30 completed Not Available Not Available Not Available amoxicilli n 500 mg tablet TAKE 1 TABLET BY MOUTH THREE TIMES DAILY FOR 5 DAYS active Not Available Not Available No t Available glimepirid e 2 mg tablet TAKE 1 TABLET BY MOUTH TWICE DAILY BEFORE MEALS 04/14 completed Not Available Not Available Not Available ondansetro n 8 mg disintegra ting tablet DISSOLVE 1 TABLET ON THE TONGUE EVERY 8 HOURS FOR 48 HOURS 04/14 completed Not Available Not Available Not Available Vitamin tablet Take 1 tablet every day by oral route as directed for 90 days. 11/25 completed Not Available Not Available Not Available oxycodone- acetaminop hen 5 mg-325 mg tablet 12/05 completed Not Available Not Available Not Available alprazolam 0.5 mg tablet active Not Available Not Available Not Available amoxicilli n 875 mg tablet TAKE 1 TABLET BY MOUTH TWICE DAILY 01/04 completed Not Available Not Available Not Available famotidine 20 mg tablet TAKE 1 TABLET BY MOUTH TWICE DAILY NEEDED 04/14 completed Not Available Not Available Not Available metoclopra mide 5 mg tablet TAKE 1 TABLET BY MOUTH EVERY 6 HOURS 04/14 completed Not Available Not Available Not Available nicotine (polacrile x) 4 mg gum active Not Available Not Available Not Available dicyclomin e 20 mg tablet TAKE 1 TABLET BY MOUTH THREE TIMES DAILY active Not Available Not Available No t Available dexamethas one 1 mg tablet TAKE 1 TABLET BY MOUTH AT 11PM NIGHT BEFORE BLOOD TEST 04/14 completed Not Available Not Available Not Available diazepam 2 mg tablet active Not Available Not Available No t Available amlodipine 10 mg tablet TAKE 1 TABLET BY MOUTH EVERY DAY active Not Available Not Available No t Available cephalexin 500 mg capsule TAKE 1 CAPSULE BY MOUTH EVERY 6 HOURS FOR 7 DAYS 04/14 completed Not Available Not Available Not Available pantoprazo le 40 mg tablet,del ayed release TAKE 1 TABLET BY MOUTH TWICE DAILY active Not Available Not Available No t Available cyanocobal quarles (vit B-12) 1,000 mcg/mL injection solution Inject 1 mL every month by subcutan eous route. 05/30 completed Not Available Not Available Not Available metformin 1,000 mg tablet TAKE 1 TABLET BY MOUTH TWICE DAILY 04/14 completed Not Available Not Available Not Available nystatin 100,000 unit/gram topical cream APPLY TO THE AFFECTED AREA(S) BY TOPICAL ROUTE 2 TIMES PER DAY 05/30 completed Not Available Not Available Not Available promethazi ne 25 mg tablet active Not Available Not Available Not Available progestero ne micronized 200 mg capsule Take 1 capsule twice a day by oral route. 05/30 completed Not Available Not Available Not Available nicotine 21 mg/24 hr daily transderma l patch apply 21 mg patch qd x6wk, then apply 14 mg patch qd x2wk, then apply 7 mg patch qd x2wk; Info: stop cigarett e use at tx onset 04/14 completed Not Available Not Available Not Available sertraline 25 mg tablet Take 1 tablet every day by oral route for 30 days. 06/27 completed Not Available Not Available Not Available omeprazole 20 mg capsule,de layed release TAKE 1 CAPSULE BY MOUTH EVERY DAY IN THE MORNING 10/20 completed Not Available Not Available Not Available lisinopril 20 mg-hydroch lorothiazi de 25 mg tablet TAKE 1 TABLET BY MOUTH EVERY DAY active Not Available Not Available No t Available folic acid 1 mg tablet Take 2 tablets twice a day by oral route. 05/30 completed Not Available Not Available Not Available alprazolam 2 mg tablet 01/25 completed Not Available Not Available Not Available lorazepam 1 mg tablet TAKE 1 TABLET BY MOUTH THREE TIMES A DAY NEEDED FOR AGITATIO N 10/20 completed Not Available Not Available Not Available lisinopril 10 mg-hydroch lorothiazi de 12.5 mg tablet Take 1 tablet every day by oral route for 30 days. 01/25 completed Not Available Not Available Not Available methylpred nisolone 4 mg tablets in a dose pack FOLLOW PACKAGE DIRECTIO NS 04/14 completed Not Available Not Available Not Available labetalol 100 mg tablet Take 1 tablet twice a day by oral route as directed for 30 days. 05/30 completed Not Available Not Available Not Available albuterol sulfate HFA 90 mcg/actuat ion aerosol inhaler INHALE 2 TO 4 PUFFS INTO LUNGS EVERY 4 TO 6 HOURS NEEDED 04/14 completed Not Available Not Available Not Available ondansetro n 4 mg disintegra ting tablet DISSOLVE 1 TABLET ON THE TONGUE EVERY 8 HOURS NEEDED FOR NAUSEA OR VOMITING active Not Available Not Available No t Available cefdinir 300 mg capsule TAKE 1 CAPSULE BY MOUTH TWICE DAILY 12/25 completed Not Available Not Available Not Available glyburide 1.25 mg tablet Take 1 tablet twice a day by oral route. 05/30 completed Not Available Not Available Not Available fluticason e propionate 50 mcg/actuat ion nasal spray,susp ension SHAKE LIQUID AND USE 1 SPRAY IN EACH NOSTRIL TWICE DAILY 04/14 completed Not Available Not Available Not Available metformin ER 500 mg tablet,ext ended release 24 hr TAKE 1 TABLET BY MOUTH TWICE DAILY WITH MEALS 04/14 completed Not Available Not Available Not Available sertraline 50 mg tablet TAKE 1 TABLET BY MOUTH EVERY DAY 07/01 completed Not Available Not Available Not Available risperidon e 1 mg tablet active Not Available Not Available Not Available loratadine 10 mg tablet 05/30 completed Not Available Not Available Not Available risperidon e 0.5 mg tablet active Not Available Not Available Not Available naproxen 500 mg tablet TAKE 1 TABLET BY MOUTH TWICE DAILY WITH FOOD 04/14 completed Not Available Not Available Not Available metoclopra mide 10 mg tablet TAKE 1 TABLET BY MOUTH EVERY 6 HOURS NEEDED FOR NAUSEA OR VOMITING active Not Available Not Available No t Available amoxicilli n 875 mg-potassi um clavulanat e 125 mg tablet TAKE 1 TABLET BY MOUTH TWICE DAILY 04/14 completed Not Available Not Available Not Available nicotine 7 mg/24 hr daily transderma l patch Apply 1 patch every day by transder mal route for 14 days. 04/14 completed Not Available Not Available Not Available hydroxyzin e pamoate 25 mg capsule active Not Available Not Available Not Available insulin lispro (U-100) 100 unit/mL subcutaneo us pen 04/14 completed Not Available Not Available Not Available insulin syringe U-100 with needle 1/2 mL 30 gauge USE DIRECTED WITH INSULIN INJECTIO NS. 04/14 completed Not Available Not Available Not Available azithromyc in 500 mg tablet TAKE 1 TABLET BY MOUTH EVERY DAY 12/25 completed Not Available Not Available Not Available metformin ER 750 mg tablet,ext ended release 24 hr Take 1 tablet twice a day by oral route. 04/14 completed Not Available Not Available Not Available aripiprazo le 5 mg tablet 04/14 completed Not Available Not Available Not Available ciprofloxa sandrine 0.3 %-dexameth asone 0.1 % ear drops,susp ension PLACE 4 DROPS INTO LEFT EAR TWICE DAILY FOR 7 DAYS 04/14 completed Not Available Not Available Not Available Alcohol Prep Pads USE DIRECTED TO INJECT INSULIN. active Not Available Not Available No t Available nitrofuran toin monohydrat e/macrocry stals 100 mg capsule TAKE 1 CAPSULE BY MOUTH EVERY 12 HOURS FOR 10 DAYS 04/14 completed Not Available Not Available Not Available chlorhexid ine gluconate 0.12 % mouthwash active Not Available Not Available No t Available labetalol 400mg. 3 times daily 12/05 completed 12/05/20 Pt would like to change this due to taking so many times a day. DG Not Available Not Available Not Available vareniclin e tartrate 1 mg tablet active Not Available Not Available Not Available vareniclin e tartrate 0.5 mg tablet active Not Available Not Available Not Available Januvia 100 mg tablet Take 1 tablet every day by oral route. active Not Available Not Available No t Available hydrochlor othiazide 12.5 mg tablet TAKE 1 TABLET BY MOUTH EVERY DAY 11/25 completed Not Available Not Available Not Available Lantus Solostar U-100 Insulin 100 unit/mL (3 mL) subcutaneo us pen ADMINIST ER 20 UNITS UNDER THE SKIN EVERY DAY AT DINNER active Not Available Not Available No t Available Cholestyra mine Light 4 gram oral powder 04/14 completed Not Available Not Available Not Available RhoGAM Ultra-Filt ered PLUS 1,500 unit (300 mcg) intramuscu lar syringe Inject 1 syringe by intramus cular route. 12/05 completed Not Available Not Available Not Available Calcium with Vitamin D3 600 mg (carbonate )-10 mcg (400 unit) capsule Take 1 capsule twice a day by oral route. 05/30 completed Not Available Not Available Not Available Calcium with Vitamin D 600 mg-10 mcg (400 unit) tablet Take 1 tablet twice a day by oral route. 12/05 completed Not Available Not Available Not Available Nexplanon 68 mg subdermal implant Inject 1 implant by subcutan eous route. 11/13 completed Not Available Not Available Not Available OneTouch Verio test strips TEST FOUR TIMES DAILY active Not Available Not Available No t Available TRUEplus Insulin 0.5 mL 31 gauge x 5/16 syringe USE TO INJECT INSULIN UP TO TWICE DAILY 04/14 completed Not Available Not Available Not Available Victoza 3-Baldo 0.6 mg/0.1 mL (18 mg/3 mL) subcutaneo us pen injector ADMINIST ER 1.8 MG UNDER THE SKIN DAILY 04/14 completed Not Available Not Available Not Available Farxiga 5 mg tablet TAKE 1 TABLET BY MOUTH TWICE DAILY BEFORE MEALS FOR 90 DAYS 04/14 completed Not Available Not Available Not Available guaifenesi n ER 600 mg tablet, extended release 12 hr Take 1 tablet every 12 hours by oral route as directed . 10/20 completed Not Available Not Available Not Available Jardiance 10 mg tablet active Not Available Not Available Not Available Vol-Plus 27 mg iron-1 mg tablet 11/25 completed Not Available Not Available Not Available OneTouch Verio Flex Meter active Not Available Not Available Not Available Vraylar 1.5 mg capsule active Not Available Not Available Not Available TRUEplus Pen Needle 31 gauge x 5/16 USE DIRECTED WITH VICTOZA DAILY active Not Available Not Available No t Available TRUEplus Pen Needle 31 gauge x 1/4 USE DIRECTED WITH VICTOZA DAILY 04/14 completed Not Available Not Available Not Available BD Keisha 2nd Gen Pen Needle 32 gauge x 5/32 USE DIRECTED 1 SYRINGE ONCE DAILY 04/14 completed Not Available Not Available Not Available OneTouch Delica Plus Lancet 33 gauge TEST BLOOD SUGAR FOUR TIMES DAILY DIRECTED 04/14 completed Not Available Not Available Not Available OneTouch Delica Plus Lancet 30 gauge active Not Available Not Available Not Available Se-Milagro 19 29 mg iron-1 mg tablet 05/30 completed Not Available Not Available Not Available Dexcom G7 Calcine Furnace Loader USE EVERY 90 DAYS 04/14 completed Not Available Not Available Not Available Dexcom G7 Sensor device USE 1 SENSOR EVERY 10 DAYS 04/14 completed Not Available Not Available Not Available boric acid 600 mg vaginal suppositor y Insert 1 supposit ory every day by vaginal route at bedtime for 14 days. 2023 active Not Available Not Available Not Avai lable Vitals Date Recorded Body height Body mass index (BMI) Body weight Heart rate Body temperature Oxygen saturation Oxygen saturation in Arterial blood by Pulse oximetry Systolic And Diastolic Provider Name and Address Organization Details Last Updated DateTime 3 173.99 cm 41.7 kg/m2 764825. 68 g 97 /min 97.7 [degF] 97 % 97 % 170/92 mm[Hg] Yee Pugh MA [facility] 3 15:35:29 Date Recorded Body height Body mass index (BMI) Body weight Systolic And Diastolic Provider Name and Address Organization Details Last Updated DateTime 11/13/2022 173.99 cm 41.5 kg/m2 413479.09 g 114/70 mm[Hg] Yee Pugh MA [facility] 11/13/2022 12:19:37 Date Recorded Body height Body mass index (BMI) Body weight Heart rate Body temperature Oxygen saturation Oxygen saturation in Arterial blood by Pulse oximetry Systolic And Diastolic Provider Name and Address Organization Details Last Updated DateTime 3 173.99 cm 40.5 kg/m2 344102. 94 g 77 /min 97.5 [degF] 96 % 96 % 102/60 mm[Hg] Yee Pugh MA [facility] 3 09:28:27 Date Recorded Body height Body mass index (BMI) Body weight Oxygen saturation Oxygen saturation in Arterial blood by Pulse oximetry Heart rate Systolic And Diastolic Provider Name and Address Organization Details Last Updated DateTime 4 173.99 cm 40.3 kg/m2 903354. 35 g 97 % 97 % 85 /min 134/86 mm[Hg] Peggy Schneider MA [facility] 4 14:24:57 Date Recorded Body height Body mass index (BMI) Body weight Oxygen saturation Oxygen saturation in Arterial blood by Pulse oximetry Heart rate Systolic And Diastolic Provider Name and Address Organization Details Last Updated DateTime 4 173.99 cm 38.5 kg/m2 851655. 24 g 96 % 96 % 99 /min 130/76 mm[Hg] Yee Pugh MA [facility] 4 17:32:17 Social History Question Answer Notes LastModified by Organizat ion Details LastModified Time Tobacco Smoking Status Current Every Day Smoker Sonia Butt MA null, [facility] 04/21/2017 14:16:34 Do You Have An Advance Directive? No Information not available 01/26/2020 If You Are , What Was Your Level Of Alcohol Consumption Prior To ? None Information not available 01/26/2020 Is Blood Transfusion Acceptable In An Emergency? Yes Information not available 01/26/2020 What Is Your Level Of Caffeine Consumption? Heavy Information not available 01/26/2020 Live With Cats/exposure To Cat Litter Yes 01/26/2020 Pt Has Cat, States She Does Not Change Liter Box, Cb-rma Information not available 01/26/2020 How Much Tobacco Do You Chew? None Information not available 01/26/2020 In The 14 Days Before Symptom Onset, Have You Had Close Contact With A Laboratory-confir med COVID-19 While That Case Was Ill? No Information not available 01/04/2021 In The 14 Days Before Symptom Onset, Have You Had Close Contact With A Person Who Is Under Investigation For COVID-19 While That Person Was Ill? No Information not available 01/04/2021 Have You Been To An Area Known To Be High Risk For COVID-19? Yes Information not available 01/04/2021 What Type Of Diet Are You Following? REGULAR Information not available 01/26/2020 Which Illicit Or Recreational Drugs Have You Used? Marijuana Information not available 01/26/2020 Have There Been Any Changes To Your Family Or Social Situation? Yes 01/26/2020 Pt Passed Herion OD 12/09/2019 , Cb-rma Information not available 01/26/2020 Frequent Air Travel No Information not available 01/26/2020 Illicit Drugs Pre- Marijuana Information not available 01/26/2020 Marital Status Single Informati on not available 01/26/2020 What Was The Date Of Your Most Recent Tobacco Screening? 04/14/2024 Information not available 04/14/2024 How Many Children Do You Have? 0 Information not available 01/26/2020 What Is Your Current Pack Years? 10-19packyear s Information not available 12/05/2020 What Is Your Relationship Status? Single Information not available 12/05/2020 Seat Belts Used Routinely Yes Information not available 01/26/2020 Are You Sexually Active? Yes Information not available 01/26/2020 Do You Have Smoke And Carbon Monoxide Detectors In Your Home? Yes Information not available 01/04/2021 At What Age Did You Start Smoking Tobacco? 16 Information not available 12/05/2020 Are You Passively Exposed To Smoke? Yes Information no t available 01/26/2020 How Much Tobacco Do You Smoke? 1 PPD Information not available 12/05/2020 Smoking Pre- .25 PPD Information not available 01/26/2020 Do You Use Sunscreen Routinely? No Information not available 01/26/2020 Supplements Prenatals Information n ot available 01/26/2020 Has Tobacco Cessation Counseling Been Provided? Yes Information not available 12/05/2020 On What Date Was Tobacco Cessation Counseling Provided? 04/14/2024 Cutting Down Slowly Information not available 04/14/2024 How Many Years Have You Smoked Tobacco? 14 Information not available 12/05/2020 Sex: Female Functional Status Question Answer Note LastModified by Organizat ion Details LastModified Time Do you use any illicit or recreational drugs? Yes boby Information not available 10/18/2021 Do you or have you ever used any other forms of tobacco or nicotine? No Information not available 10/18/2021 What is your level of alcohol consumption? None Information not available 01/26/2020 Do you or have you ever used smokeless tobacco? Never used smokeless tobacco Information not available 01/26/2020 Are you currently employed? No Information not available 01/26/2020 What is your occupation? unemployed Information not available 01/26/2020 Do you or have you ever used e-cigarettes or vape? Former user of electronic cigarettes Information not available 01/26/2020 What is your exercise level? None Information not available 01/26/2020 Mental Status None recorded. Family History Relationship Description Onset Age of this Age Resolved Age Notes LastModified by Organization Details LastModified Time Father Depressive disorder [email or web address] Not available 2016 14:15:37 Father Hypertensive disorder hdoverma Not available 2016 14:16:19 Mother Depressive disorder hdoverma Not available 2016 14:15:41 Mother Heart disease hdoverma Not available 2016 14:15:50 Mother Hypercholest erolemia hdoverma Not available 2016 14:15:59 Mother Hypertensive disorder hdoverma Not available 2016 14:16:24 Medical History Condition Response Coronary Artery Disease N Other N High Blood Pressure Y Atrial Fibrillation N Kidney or Bladder Problems N Thyroid Problems N GI Problems N Depression Y COPD N Blood Clots N Skin Problems N Anemia N Heart Attack ([place]) N Anxiety Disorder Y Diabetes N Muscle, Joint, or Bone Problems N Seizures/Epilepsy N Acid Reflux (GERD) N Cancer N Stroke N Asthma N Allergies N High Cholesterol N Hepatitis N Liver Disease N Headaches N Heart Failure N Osteoporosis N Gynecological History Statement/Question Response Abnormal Pap N Flow Light Date of LMP On BCP's at Conception? N STIs/STDs N HPV Vaccine Age at Menarche 15 Current Control Method None Sexually Active? N Menses Monthly N Date of Last Pap Smear 06/08/2024 LMP Approximate Desired Control Method Unknown Obstetrics History GPAL:G 1 P 0 1 0 1 Type Value Multiple Births 0 Full Term 0 Induced 0 Spontaneous 0 Premature 1 Living 1 Ectopics 0 Total 1 Immunizations Vaccine Type Date Status Note Provider Nam e and Address Organization Details Recorded Time COVID-19, mRNA, LNP-S, PF, 30 mcg/0.3 mL dose 10/05/2021 completed Kathleen Garvin [place] null, [place] [facility] 02/12/2022 14:20:55 COVID-19, mRNA, LNP-S, PF, 30 mcg/0.3 mL dose 10/26/2021 completed Kathleen Garvin [place] null, [place] [facility] 02/12/2022 14:21:13 Influenza, split virus, quadrivalent, PF 07/10/2017 completed Not Available [facility] 0 02:47:58 Tdap 07/10/2017 completed Not Available [facility] 10/08/2019 02:49:07 Tdap 04/05/2020 completed Nadia Guardado [place] null, [place] - [facility] 04/05/2020 16:40:07 Past Encounters Encounter ID Performer Location Encounter Start Date Encounter Closed Date Diagnosis/Indication Diagnosis SNOMED-CT Code Diagnosis ICD10 Code Diagnosis IMO Codes Diagnosis Note [id number] Angelika Palomino [facility] [address] [place] [id number] 04/21/2017 13:52:02 04/21/2017 14:51:56 Adult health examination 503527327 Z00.01 Mixed anxi ety and depressive disorder 879059486 F41.8 Obesity 712895817 E66.9 Benign hypertension 1072 5009 I10 Patient education, weight loss and a low salt diet Nicotine dependence 5629 4008 F17.200 Cessation was discussed [id number] [facility] [address] [place] [phone] 07/10/2017 16:20:43 07/10/2017 16:51:41 Mixed anxiety and depressive disorder 228490330 F41.8 Benign hypertension 1072 5009 I10 Unexplaine d weight loss 141120077 R63.4 Needs infl uenza immunization 074717758 Z23 Administra tion of diphtheria, pertussis, and tetanus vaccine 364307113 Z23 [id number] MD [facility] ([facility]) [address] [place] [phone] 0 01/26/2020 14:34:45 01/27/2020 07:11:14 Routine care 065866865 Z34.90 Venereal d isease screening 123399715 Z11.3 Hypertensive disorder 38 405187 I10 Obesity 410742574 Z68.42 Mixed anxi ety and depressive disorder 984332559 F41.8 Substance abuse 67918278 F19.10 Candidiasis of skin 4988 3006 B37.2 [id number] [facility] ([facility]) [address] [place] [id number] 0 02/10/2020 15:42:12 02/15/2020 08:46:49 Routine care 248751761 Z34.92 ACOG at 22w5d. Pt denies contractio ns, LOF. + movement. US 01/25 with EFW 54.6%, RIK wnl. Test results reviewed. OB educationa l packet reviewed and provided to patient. Prediabetes 214922836 R7 3.03 HgbA1c 6.0%. GCT test around 28 weeks. Hypertensive disorder 38 376000 I10 Referral made to [facility] for further evaluation /managemen t. Advised US and appt scheduled for February 22 at 7:30. Continue medication s as prescribed . Limit salt in diet. 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 Continue progestero ne, ASA, folic acid as prescribed . Will start monthly B12 injections at next visit. RhD negative 295737236 Z 01.83 Antibody screening/ Rhogam at 28 weeks. History of substance abuse 051332196 F19.21 Former meth user. Pt reports last use Oct 22. Tox screen negative for methamphet amines 01/25 (positive for THC). Referral previously made to [facility]. Morbid obesity 672267064 E66.01 Recommende d weight gain <15 pounds. [id number] MONI LYNCH ([facility]BU[facility]DER) [address] [place] [address], [place] [address] 04/05/2020 15:22:40 04/09/2020 10:26:06 Routine care 645914347 Z34.92 CASIE at 30w4d with Hx of MTHFR homozygous , HTN, prediabete s, tobacco dependence , +Methamphe tamine use, Insufficie nt Care. Last reported meth use 10-22-19. Denies LOF, Contractio ns, Dizziness, LOPEZ, vision changes. + movement, edema to bilateral hands & feet. B12 and Tdap given today. Fingerstic k HgbA1C in office 6.4; GCT ordered for 04-09-20. Order for 3rd trimester US placed. Elevated blood pressure reading in office of 170/90s without improvemen t over time. Patient urgently referred to [facility] for management of HTN and Rhogam. [facility] L&D contacted and expecting patient's arrival, orders placed and faxed. Call made to seasoner physician, Dr. Klein, awaiting response. screening 1107 79916 Z36.9 Patient will return to office for GCT 04-09-20. RhD negative 305320786 Z 01.83 Patient advised to go to [facility] from office for Rhogam. Orders placed and faxed over. 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 Continue progestero ne, ASA, folic acid as prescribed . B12 administer ed 04/05. Hypertensive disorder 38 853616 I10 History of HTN. Highly elevated blood pressure in office; 172/90, 172/94; did not improve over time in clinic. Edema noted in bilateral hands and feet on exam. Patient urged to go to [facility] to monitor and treat hypertensi on, and for further workup for preeclamps ia. L&D contacted and arrangemen ts made at [facility] for patient evaluation . Patient expressed reluctance with this plan 10/23 transporta tion difficulti es. Stressed the importance of managing blood pressure and assuring the health of pt and baby. Patient stated agreement to plan to go to [facility] immediatel y upon leaving clinic. Referral previously made to [facility], pt no showed appt. [facility] contacted and pt reschedule d for 04/12. Patient urged to keep scheduled appointmen t. Advised patient that a full transfer of care is necessary based on high risk nature of her . We will continue to be primary [facility] until she is establishe d at [facility]. Continue medication s as prescribed . Morbid obesity 051669829 E66.01 Recommende d weight gain <15 pounds. Impaired g lucose tolerance 8587572 R73.02 Fingerstic k HgbA1C 6.4 in office today. Patient advised she will need to return for glucose challenge test. Stressed to patient the importance of reducing carbohydra te intake, especially beverages and foods high in sugar. Encouraged diet high in vegetables , fruit, whole grains, and lean proteins. Smoker 87880723 F17.200 Patient advised to stop smoking. Patient reports she has successful ly reduced her consumptio n down to half a pack per day. Urged complete cessation. Pt declined aids at this time. Reassess at next visit. History of substance abuse 754072890 F19.21 Former meth user. Pt reports last use Oct 22. Tox screen negative for methamphet amines 01/25 (positive for THC). Referral previously made to [facility], pt missed appt. Reschedule d for April 12. Insufficie nt care 5310448208 109 O09.33 [id number] MD [facility] ([facility]) [address] [place] [id number] 0 05/30/2020 10:44:55 05/31/2020 13:30:44 Hypertensive disorder 94228310 I10 Continue BP medication Morbid obesity 983281105 E66.01 state 3665613 1 Z39.2 Implantati on of subcutaneous contraceptive 660555306 Z30.9 Deliveries by 270481330 O82 Mixed anxi ety and depressive disorder 234873311 F41.8 [id number] [facility] ([facility]) [address] [place] [phone] 12/05/2020 14:22:49 12/06/2020 11:56:58 Type 2 diabetes mellitus 21877247 E11.9 Newly diagnosed, A1C results (8) reviewed with patient. Counseled pt on diabetes and complicati ons in detail. Will start patient on Metformin, Victoza. Advised to check blood sugars twice daily - 1 fasting and 1 postprandi al. She has glucometer and supplies at home from . She has eye exam scheduled this Thursday. Diabetes packet provided. RTC in 1 month. Morbid obesity 602134042 E66.01 Patient reports weight gain of 85 pounds from beginning or to now (20# noted per vitals). BMI 49.3. Advised healthy diet, reducing soda, fatty foods and sugars and encouraged daily exercise to assist with weight loss. Mixed hyperlipidemia 267 846312 E78.2 Pt on Statin from prior PCP. Lipid Panel ordered. Continue current treatment. Essential hypertension 28351104 I10 History of HTN and gestationa l HTN. Patient recently restarted all antihypert ensives with in-office BP today of 124/80. Stopped labetalol and started amlodipine 10mg and lisinopril 20mg. Advised to check BP daily and keep record. Provided patient education on healthy diet, exercise. RTC in 1 month for BP check. Gastroesop hageal reflux disease without esophagitis 920479111 K21.9 Patient reports 3 month history of reflux. Started on omeprazole today. Advised avoiding irritating foods and stay sitting up after meals. Fatty stool 61396560 R19 .5 Patient reports yellow, loose, greasy stools that float. No abdominal pain or blood in stool. Follow up pancreatic enzymes and hepatic function panel. History of substance abuse 564717517 F19.21 Former meth user. Pt reports last use 10/2019. Tox screen negative for methamphet amines 01/26/20 (positive for THC). Smoker 19406685 F17.200 Patient reports she is currently smoking 1 pack per day. Counseled on smoking cessation, pt not interested in quitting at this time and declined aids. Reassess at next visit. Mixed anxi ety and depressive disorder 525244625 F41.8 Previously on sertraline , pt has stopped taking this. States mood is improved, denies SI/HI. PHQ9 11/17. Will monitor. [id number] MONI LYNCH (POWERBUILDER) [address] [place] [phone] 01/04/2021 10:32:01 01/07/2021 08:45:54 Hypertensive disorder 88675982 I10 Currently on hctz 12.5, amlodipine 10, lisinopril 20. BP elevated to 140/96, 130/90 upon recheck. Will increase her HCTZ to 25 to better manage pressures. Advised to continue to check BP daily. Discussed DASH diet, daily exercise, and smoking cessation. Morbid obesity 241541510 E66.01 Patient has lost 10 lbs since last visit 1 month ago. BMI 47.9. Advised healthy diet, reducing soda, fatty foods and sugars and encouraged daily exercise to assist with weight loss. Hypertriglyceridemia 302 615719 E78.2 Triglyceri charlie 538 on 12/05/2020. Currently on Atorvastat in. Suspect due to non fasting labs, repeat fasting lipid panel today. Type 2 mary betes mellitus 54835009 E11.9 Last A1C 8. Continue Metformin and Victoza as prescribed and daily BS monitoring . Smoker 39702238 F17.200 Patient reports she is currently smoking 1 pack per day. Counseled on smoking cessation, pt not interested in quitting at this time and declined aids. Reassess at next visit. Snoring 79664639 R06.83 With daytime fatigue. Follow up sleep study. Hypersomnia 54962267 G47 .10 Likely due to suspected MERI. Follow up sleep study. [id number] MONI LYNCH [facility] (Adult Med) [address] [place] [phone] 0 06/14/2021 16:44:25 06/19/2021 15:02:06 Hypertensive disorder 14768596 I10 Currently on hctz 25, amlodipine 10, lisinopril 20. States BPs have been stable. Will continue current medication s as prescribed . Advised to continue to check BP regularly. Discussed DASH diet, daily exercise, and smoking cessation. Smoker 29614887 F17.200 Patient reports she is currently smoking 1 pack per day. Counseled on smoking cessation, pt not interested in quitting at this time and declined aids. Morbid obesity 758626953 E66.01 Diet high in fruits and vegetables . Limit fat,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
== END 2025-06-20 13:01 | disposition home or self-care (01) ==
PROVIDERS: Emergency Provider Emergency Medicine; PCP Internal Medicine
DX: S09.90XA Unspecified injury of head, initial encounter (principal); M54.2 Cervicalgia; I10 Essential (primary) hypertension; E78.5 Hyperlipidemia, unspecified; E11.9 Type 2 diabetes mellitus without complications; F17.210 Nicotine dependence, cigarettes, uncomplicated; V89.2XXA Person injured in unspecified motor-vehicle accident, traffic, initial encounter
CPT/HCPCS: 70450; 72125; 73562; 99284; A9270